=== PATIENT | female | born 1955 | race Caucasian/White ===

== ENCOUNTER 2023-12-24 22:39 | Inpatient (IN) | payer MEDICARE, OTHER, SELFPAY ==
[2023-12-24 15:13] VITALS: BP 176/88
[2023-12-24 15:32] LABS: % Basophils 0.5 % (0-2); % Eosinophils 2.4 % (0-6); % Immature Granulocytes 0.2 % (0-0.5); % Lymphocytes 31.6 % (20.5-51.1); % Monocytes 9.3 % (1.7-9.3); Absolute Eosinophils 0.2 10^3/uL (0-0.7); Absolute Lymphocytes 1.9 10^3/uL (1.2-3.4); Absolute Monocytes 0.6 10^3/uL (0.1-0.6); Absolute Neutrophils 3.4 10^3/uL (1.4-6.5); Hematocrit 38.8 % (37.0-47.0); Hemoglobin 13.9 g/dL (12.0-16.0); Mean Corp Hgb Conc. 35.8 g/dL (33.0-37.0); Mean Corpuscular Volume 83.8 fL (81.0-99.0); Nucleated Red Blood Cells % 0 %; Platelet Count 167 10^3/uL (130-400); Red Blood Cell Count 4.63 10^6/uL (4.20-5.40); Red Cell Dist. Width 12.1 % (11.5-14.5); White Blood Cell Count 6.1 10^3/uL (4.8-10.8)
[2023-12-24 15:40] VITALS: BMI 28.5
[2023-12-24 15:42] VITALS: BP 172/82
[2023-12-24] MEDS: NSS 1000 IV (15:46)
[2023-12-24 15:54] LABS: Urine Albumin Negative (Neg - Trace); Urine Bilirubin Negative (Negative); Urine Character Clear (Clear); Urine Color Yellow; Urine Glucose 3+ (Negative); Urine Ketone 1+ (Negative); Urine Leukocyte Negative (Negative); Urine Nitrite Negative (Negative); Urine Occult Blood Negative (Negative); Urine Urobilinogen Negative (Neg - 1+)
[2023-12-24 15:57] LABS: ALT (SGPT) 34 U/L (0-35); AST (SGOT) 30 U/L (14-36); Albumin 4.4 g/dl (3.5-5.0); Alkaline Phosphatase 100 U/L (38-126); Blood Urea Nitrogen 18 mg/dl (7-17); Calcium 9.7 mg/dl (8.4-10.2); Carbon Dioxide 23 mmol/L (22-30); Chloride 100 mmol/L (98-107); Estimated Creatinine Clearance 63 ml/min; Glucose 439 mg/dl (70-99); Potassium 4.3 mmol/L (3.5-5.1); Sodium 134 mmol/L (135-145); Total Bilirubin 0.8 mg/dl (0.2-1.3); Total Protein 7.1 g/dl (6.3-8.2); eGFR > 60.00
[2023-12-24 16:00] VITALS: BP 175/85
[2023-12-24 16:03] LABS: B-Hydroxybutyrate 0.48 mmol/L (0.02-0.27)
[2023-12-24] MEDS: NOVOLIN R 5 UNITS IV ×2 (16:17→20:52)
--- NOTE | 2023-12-24 16:28 | ED.GENMED ---
History of Present Illness
General
Chief Complaint: Flank Pain
Source: patient
Exam Limitations: none
Time Seen by Provider: 12/24/23 15:30
Nursing documentation reviewed up to this point in time: agreed with
History of Present Illness
History of Present Illness:
68-year-old female with a past medical history of hypertension, hyperlipidemia, diabetes, asthma who presents to the emergency room for evaluation of left flank pain. Patient reports onset of symptoms about a month ago and they have been consistent
and she feels somewhat worsening. She says that pain somewhat better laying flat, no clear triggering factors noted. She denies any falls or trauma. She reports that initially she had associated constipation going as long as 10 days without a
bowel movement however over the past 3 days she has had diarrhea. She denies any urinary symptoms. She denies any fever or chills. She denies any abdominal pain although she said she did have some transient upper abdominal distention which has
resolved. Denies nausea or vomiting. She denies any focal weakness or numbness in her extremities. She denies any incontinence. Denies saddle anesthesia. Denies any other complaints. She reports prior surgical history of hysterectomy.
Notably, she was seen in urgent care prior to evaluation here and was found to be severely hyperglycemic with a blood glucose of over 400; she does have a known history of diabetes/prediabetes but it is only controlled with diet.
Past History
Past History
ED Past Medical History: HTN and NIDDM
ED Past Surgical History: Gynecological (Total hysterectomy December 2013)
Social History
Tobacco: Non-smoker
Alcohol: Other
Drug: None
Living: with family
Employment: Employed
Family History
Family History: Other (Noncontributory)
Review of Systems
Review of Systems
All Other Systems: ROS reviewed and negative except as documented in HPI and ROS
Constitutional: Denies fever or chills
EENT: Denies sore throat or runny nose
Respiratory: Denies trouble breathing
Cardiac: Denies chest pain
ABD/GI: Reports diarrhea and constipated; Denies abdominal pain, nausea or vomiting
: Reports flank pain; Denies dysuria, frequency or bleeding
Musculoskeletal: Denies neck pain or back pain
Neurological: Denies headache, weakness or numbness
Phy Exam
Physical Exam
Physical Exam:
General: Awake, alert, oriented x3; no acute distress
Head: Normocephalic, atraumatic
Eyes: Conjunctiva normal, sclera anicteric
Throat: Airway intact, handling secretions
Neck: Trachea midline, supple without meningismus
Lungs: Clear to auscultation bilaterally, no wheezing, rales, rhonchi
Heart: Regular rate and rhythm, no murmurs, gallops, or rubs
Abd: Soft, slightly distended, no focal tenderness to palpation and no peritoneal signs
Back: Mild tenderness in the left upper lumbar region in the paraspinal area but no midline thoracic or lumbar tenderness, no CVA tenderness
Neuro: Cranial nerves grossly intact, speech fluid, motor and sensory function intact in all extremities
Skin: no rash
Extremities: No edema in extremities, equal pulses in all extremities
Scores
Heart Failure Risk
Heart Failure Risk Score: Not Applicable
Heart Score for Chest Pain Patients
STEMI patient?: Not applicable
Withdrawal Assessment of Alcohol
Withdrawal Assessment Completed?: Not applicable
Course
Orders/Labs/Results
Orders:
Orders
12/24/23 15:27
B-Hydroxybutyrate Urgent
Complete Blood Count/With Diff Urgent
Comprehensive Metabolic Panel Urgent
Lipase Urgent
Comment: ADD ON
12/24/23 15:31
CT Abd/pelvis W Iv Cont Urgent
Comment:
Reason For Exam: left flank pain
12/24/23 15:32
0.9% Sodium Chloride 1000 ml [Nss] 1,000 ml IV BOLUS
12/24/23 15:48
Urinalysis Reflex To Culture Urgent
Date Specimen was Collected: 12/24/23
Time Specimen was Collected: 15:47
12/24/23 16:06
STOOL [C difficile Antigen & Toxins] Urgent
YOVANA Source: Feces/Stool
Specimen Description:
Stool Culture Urgent
YOVANA Source: Feces/Stool
Specimen Description:
12/24/23 16:07
Insulin Human Regular [Novolin R] 5 units IV NOW STA
12/24/23 16:37
Add On- LAB Urgent
Tests Added?: lipase
12/24/23 19:32
Ketorolac [Toradol] 15 mg .ROUTE .STK-MED ONE
Ketorolac [Toradol] 15 mg IV NOW STA
12/24/23 20:47
Insulin Human Regular [Novolin R] 5 units IV NOW STA
Abnormal Lab Results
12/24/23 12/24/23 12/24/23
15:27 15:48 16:56
MPV 11.0 H fL
(7.4-10.4)
Sodium 134 L mmol/L
(135-145)
BUN 18 H mg/dl
(7-17)
Glucose 439 H mg/dl
(70-99)
Urine Ketones 1+ A
(Negative)
Urine Glucose 3+ A
(Negative)
B-Hydroxybutyrate 0.48 H mmol/L
(0.02-0.27)
POC Glucose 341 H mg/dl
(70-99)
12/24/23 12/24/23 12/24/23
18:10 19:35 20:34
MPV
Sodium
BUN
Glucose
Urine Ketones
Urine Glucose
B-Hydroxybutyrate
POC Glucose 284 H mg/dl 384 H mg/dl 367 H mg/dl
(70-99) (70-99) ()
12/24/23
21:47
MPV
Sodium
BUN
Glucose
Urine Ketones
Urine Glucose
B-Hydroxybutyrate
POC Glucose 340 H mg/dl
()
12/24/23 15:27
12/24/23 15:27
Vital Signs
Initial and Last Documented VS:
Initial Vital Signs
Temp Pulse Resp BP Pulse Ox
36.9 C 87 18 176/88 97
12/24/23 15:13 12/24/23 15:13 12/24/23 15:13 12/24/23 15:13 12/24/23 15:13
Last Documented Vital Signs
Temp Pulse Resp BP Pulse Ox
36.9 C 82 19 189/87 97
12/24/23 15:13 12/24/23 20:45 12/24/23 20:45 12/24/23 17:00 12/24/23 20:45
MDM/Problems Addressed
Differential Diagnosis Includes:
Constipation, colitis, bowel obstruction, nephrolithiasis, pyelonephritis, pancreatitis, musculoskeletal pain
MDM/Problems Addressed:
68-year-old female presents for evaluation of left flank pain associate with constipation and now diarrhea over the past few days. No trauma and no clear positional component to her symptoms. She has no red flag symptoms for back pain. She is
hypertensive but has otherwise normal vitals. Physical exam as above. Accu-Chek greater than 400 at urgent care as well as here. Will check labs including a CBC and a CMP. Check urinalysis. Will check lipase. Will send for a CT abdomen pelvis.
Will provide some IV fluids. Reassess after the above.
Labs reviewed: CBC unremarkable, CMP shows hyperglycemia to 439 with no signs of DKA. Will provide some IV insulin for blood glucose control. Awaiting results of CT.
CT shows no acute pathology to account for symptoms. We did treat with Toradol and her pain is improved. Suspect it could be musculoskeletal pain or perhaps mild colitis with her recent diarrhea; there was not a marked stool burden suggest that
this is all from constipation. Unfortunately her blood sugars have been poorly controlled here; she was given 5 units of IV insulin and a liter of IV fluid with only some improvement but still greater than 300. Will provide additional IV insulin
and reassess.
Blood sugars still poorly controlled she has received 10 units of insulin total and her most recent blood glucose is 340. Although she is not in DKA her sugars are poorly controlled, she is not on any medications at present and says that she is
allergic to metformin. She will need sugar control and diabetes education and ultimately will need regimen insulin versus oral meds. I think she should be admitted for this issue�case discussed with hospitalist.
Chronic conditions affecting care:
Diabetes
Acute Exacerbation and/or Progression of Chronic Illness:
Acutely hypertensive with no signs or symptoms of hypertensive emergency�no indication for emergent antihypertensive treatment
Acute exacerbation of chronic diabetes with hyperglycemia to 439�treated with IV fluids and IV insulin
Acute Exacerbation and/or Progression of Chronic Illness: DM and HTN
*Radiology
Radiology exam reviewed: radiology read reviewed
*Pulse Oximetry
Patient hypoxic: no
*Critical Care Note
Total Time (30-74mins, 75-104mins- exclusive of procedures): Not Applicable
Data Reviewed
Review of Other/Old Records Reveals: Labs and Records
Source: patient and records
Patient Management
Discussion with other providers: Hospitalist (Discussed with hospitalist)
Escalation/DeEscalation of care consider admission/obs:
Admission indicated
ED Attending Note
-
Portions of this chart may have been created with voice recognition software.� Occasional wrong word or��sound alike� substitutions may have occurred due to the inherent limitations of voice recognition software.
Discharge Plan
Departure
Patient Disposition: Admit
Date of Disposition: 12/24/23
Time of Disposition: 22:27
Admit to doctor: Vick
Presentation/result/management discussed w/ accepting MD/DO: Hospitalist
Discharge Problem:
Acute hyperglycemia, Diabetes mellitus, Left flank pain
Prescriptions:
No Action
metformin 500 MG tablet
500 mg PO TID
Enalapril
1 tab PO DAILY
Patient Comments:
'I do not know the dose and also I don't think that I have been able to keep it down for atleast 10 days anyway since I have been sick.'
ciprofloxacin HCl 500 MG tablet
500 mg PO BID Qty: 6 0RF
ondansetron 4 MG tablet,disintegrating
4 mg PO TIDPRN PRN (Reason: nausea) Qty: 12 0RF
dicyclomine 20 MG tablet
20 mg PO Q8HPRN PRN (Reason: abdominal cramping) Qty: 15 0RF
meclizine 25 MG tablet
25 mg PO TIDPRN PRN (Reason: dizziness) Qty: 15 0RF
Referrals:
UNKNOWN - PT DOES,NOT KNOW [Family Provider] -
Interventions
Interventions:
*Risk Screen - Suicide Last Done: 12/24/23 15:13
*General Assessment Last Done: 12/24/23 15:13
*Neglect/Abuse Screening Last Done: 12/24/23 15:13
ED- Fall Risk Assessment Last Done: 12/24/23 19:04
*ED COVID-19 Vaccine History Last Done: 12/24/23 15:43
BA-Cligii-Paujwhdvds Assessment Last Done: 12/24/23 19:04
ED-Female Genitourinary Assessment Last Done: 12/24/23 15:43
Discharge Date and Time
Print Language: MICRONESIAN
[2023-12-24 16:57] LABS: Glucose - Point of Care 341 mg/dl (70-99)
[2023-12-24 17:00] VITALS: BP 189/87
[2023-12-24 18:06] LABS: Lipase 113 U/L (23-300)
[2023-12-24 18:12] LABS: Glucose - Point of Care 284 mg/dl (70-99)
[2023-12-24] MEDS: TORADOL 15 MG IV (19:35)
[2023-12-24 19:36] LABS: Glucose - Point of Care 384 mg/dl (70-99)
[2023-12-24 20:35] LABS: Glucose - Point of Care 367 mg/dl (70-99)
[2023-12-24 21:49] LABS: Glucose - Point of Care 340 mg/dl (70-99)
[2023-12-24 22:11] VITALS: BP 191/87
--- NOTE | 2023-12-24 22:47 | HPS.HSE ---
Family Physician
-
Family Physician: NOT KNOW UNKNOWN - PT DOES
Chief Complaint
-
H BG at [facility]
History of Present Illness
HPI
68F HX DMT2 , HX ADES to metformin, HKLD, HTN seen at ER for evaluation of Lt flank pain
Subacute Lt flank pain
- for last 4 weeks
- Improved with laying flat, but no clear precipitating factors
- Denied trauma and injury
Constipation for 10 days followed by diarrhea
- no abdominal pain'
- no nausea and vomiting
Seen in [facility] prior to evaluation here
- noted BG > over 400
- Known HX DMT2 Dxed 5 -6 yrs
- She was on Metformin but due to significant wt loss she was advised to stop and on diet control
Medical History
Past Medical History
Past Medical History: Reports HTN and NIDDM (predibetes vs DM)
Past Surgical History: Reports Gynocological (total hysterectomy December 2013 )
Social History
Tobacco: Non-smoker
Alcohol: Other
Living: With Family
Family History
Family History: Not pertinent
Allergies / Home Medications
Allergies reflects when Allergies were last updated in [facility].
Home Medications with original date entered in [facility]
Allergy/Medication List:
Allergies
Allergy/AdvReac Type Severity Reaction Status Date / Time
No Known Allergies Allergy Verified 03/27/18 13:50
Home Medications
No Meds [No Current Medications] 12/24/23
If medication reconciliation has not been performed, why?: Medication List N/A
Review of Systems
-
Constitutional: Reports No Symptoms
EENT: Reports No Symptoms
Respiratory: Reports No Symptoms
Cardiac: Reports No Symptoms
: Reports Other (Lt flank pain )
Musculoskeletal: Reports No Symptoms
Skin: Reports No Symptoms
Neurological: Reports No Symptoms
Endocrine: Reports See HPI
Hematologic/Lymphatic: Reports No Symptoms
Psych: Reports No Symptoms
Physical Exam
Vital Signs
Vital Signs
Temp Pulse Resp BP Pulse Ox
98.4 F 82 19 191/87 98
12/24/23 15:13 12/24/23 20:45 12/24/23 20:45 12/24/23 22:11 12/24/23 22:11
Physical Exam
General: Well Developed, Well Nourished and No Apparent Distress
HEENT: NormoCephalic, Moist mucous membranes and Atraumatic
Respiratory: Clear
Cardiac: S1/S2 and Regular Rhythm; No Murmur or Rub
GI: Soft, Non Tender, Non Distended, Normal Bowel Sounds and Other (Mild tenderness in the left upper lumbar region in the paraspinal area but no midline thoracic or lumbar tenderness, no CVA tenderness); No Organomegaly
Rectal: Deferred by Provider
Musculoskeletal: No Clubbing, No Cyanosis and No Edema
Skin: No Rash
Neuro: Nonfocal/grossly intact
Laboratory Results
-
12/24/23 15:27
12/24/23 15:27
Laboratory Results
Total Bilirubin 0.8 mg/dl (0.2-1.3) 12/24/23 15:27
AST 30 U/L (14-36) 12/24/23 15:27
ALT 34 U/L (0-35) 12/24/23 15:27
Alkaline Phosphatase 100 U/L (38-126) 12/24/23 15:27
Lipase Cancelled 12/24/23 16:35
Data Reviewed
-
CT Scan: Report Reviewed by me
Lab Data: Labs Reviewed by me
Impression/Plan
-
Reviewed VS: Afebrile BP 190/85 HR 80 RR 19 POx 97
Data
WCC 6.1
Na 134
K 4.3
Unremarkable Cr and e GFR
NAG 11
BG 439
BHB 0.48
[address] Abd/pelvis W Iv Cont
- There is no evidence of acute pathology
- Imaging from bowel pathology is limited by the lack of enteric contrast.
- If there is clinical concern for bowel pathology, the study could be repeated with enteric contrast and 4 hour delay
- Diverticuli are present in the colon with no CT evidence of diverticulitis
No prior hospitalist admission:
ASSESSMENT & PLAN
Pending Rx reconciliation
Uncontrolled Hyperglycemia: No evidence DKA or Hyperosmolar hyperglycemic crisis
HX DMT2 Dxed 5 -6 yrs: She was on Metformin but due to significant wt loss she was advised to stop
BMI 28
NAG acidosis
POS BHB suspect ketosis without diabetic crisis
- NEG UA
- check A1C
- IV NS 60 cc/H
- s/p Reg insulin 5 u x2
- Initiate 70/30 12U BID
- add ISS low
- Diabetic diet 1800 rosy
- Dietary consult
- DM PAYROLL PROCESSOR consult for insulin management
Systolic HTN
? HX uncontrol essential HTN
- start Lisinopril 5mg daily
- Add IV Hydralazine PRN
Subacute Lt flank pain suspect MSK origin
NEG CT evidence of acute pathology
- Tylenol PRN
HX constipation followed by diarrhea : Overflow diarrhea ?
- Observe BMs
DVT Px: LMWH
Code: Full code
IP MS
[2023-12-24 23:48] VITALS: BP 164/86; BMI 27.6
[2023-12-25] MEDS: NSS 1000 IV ×2 (00:16→16:43)
[2023-12-25] MEDS: APRESOLINE 5 MG IV ×2 (00:28→09:44)
[2023-12-25] MEDS: TYLENOL 650 MG PO ×5 (00:28→20:57)
--- NOTE | 2023-12-25 01:00 | PTCARENOTE ---
Pt received from ED via stretcher. Ambulated to bed independently without incident. Oriented to surroundings and plan of care discussed. Admission and assessment completed. Reports L flank pain as tolerable at present. BP elevated, pt reports
mild headache. PRN hydralazine administered per MD order (refer to AUG). OOB to BR, aware of order for stool studies, hat in place. #20 LAC w/NSS at 60 mL/hr. Call ramírez within reach, plan of care ongoing.
[2023-12-25 03:38] VITALS: BP 133/72
[2023-12-25 06:50] LABS: Hematocrit 36.6 % (37.0-47.0); Hemoglobin 13.2 g/dL (12.0-16.0); Mean Corp Hgb Conc. 36.1 g/dL (33.0-37.0); Mean Corpuscular Volume 83.2 fL (81.0-99.0); Platelet Count 150 10^3/uL (130-400); Red Cell Dist. Width 11.9 % (11.5-14.5); White Blood Cell Count 5.7 10^3/uL (4.8-10.8)
[2023-12-25 07:15] LABS: Blood Urea Nitrogen 19 mg/dl (7-17); Calcium 9.4 mg/dl (8.4-10.2); Carbon Dioxide 21 mmol/L (22-30); Chloride 106 mmol/L (98-107); Estimated Creatinine Clearance 94 ml/min; Glucose 292 mg/dl (70-99); Potassium 4.3 mmol/L (3.5-5.1); Sodium 137 mmol/L (135-145); eGFR > 60.00
[2023-12-25 08:00] VITALS: BP 173/90
[2023-12-25 08:02] LABS: Glucose - Point of Care 294 mg/dl (70-99)
[2023-12-25] MEDS: HEPARIN 5000 UNITS SC ×2 (08:03→20:44)
[2023-12-25] MEDS: ZESTRIL 5 MG PO (08:03)
[2023-12-25] MEDS: MIRALAX 17 GRAMS PO (08:03)
[2023-12-25] MEDS: NOVOLOG FLEXPEN-LOW RESISTANCE 3 UNITS SC (08:04)
[2023-12-25] MEDS: NOVOLOG MIX 70/30 FLEXPEN 12 UNITS SC ×2 (09:19→16:43)
--- NOTE | 2023-12-25 10:47 | CM ---
CM met with pt at bedside.
Pt resides in a 2SH, bedroom and bathroom on 2nd floor. [address] home.
Prior to admission pt is independent with ambulation using no AD and ind with ADL's. Denies DME. Does not own a glucometer.
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
Pt does not have a PCP. Uses urgent care. CM to supply PCP resource list.
Pharmacy is [facility] or [place] [id number].
CM to follow and assist with dcp needs. Anticipate possible DME needs (glucometer). Pt has no PCP which will be a barrier for homecare follow up.
--- NOTE | 2023-12-25 11:01 | W.PN.HOSP.TC ---
Addendum entered and electronically signed by Nate Lisa MD 12/25/23 16:22:
Headache appears to be improving. monitor
Addendum entered and electronically signed by Nate Lisa MD 12/25/23 16:17:
CT with possibility of Old CVA. Patient does have risk factors HTN,DM and has been non compliant. Will order MRI. and start ASA for now.
Original Note:
Today's Communication/Plan
-
Monitor vital signs see plan
Will need outpatient primary care provider
Diabetes education, nurse practitioner
Continue lisinopril, uptitrate as necessary
Continue insulin
A1c pending
Assessment / Plan
Assessment / Plan
Uncontrolled Hyperglycemia likely secondary to uncontrolled diabetes mellitus
HX DMT2 Dxed 5 -6 yrs: She was on Metformin but due to significant wt loss she was advised to stop. Per patient currently she is not following up with any primary care provider and does see physician at urgent care when she gets sick
BMI 28
Non-anion gap metabolic acidosis
POS BHB suspect ketosis
- NEG UA
- A1C pending
- IV NS 60 cc/H
- s/p Reg insulin 5 u x2
- Initiate 70/30 12U BID
- add ISS low
- Diabetic diet 1800 rosy
- Dietary consult
- DM SUPERVISOR [employer]ACUUM METALIZING consult for insulin management
Essential hypertension
Denies any history however did not see primary care provider
Start lisinopril, uptitrate as necessary
- Add IV Hydralazine PRN
Subacute Lt flank pain suspect MSK origin
Has been having periods of diarrhea which is now improving
NEG CT evidence of acute pathology
- Tylenol PRN
HX constipation followed by diarrhea
- Observe BMs
DVT Px: LMWH
Code: Full code
General: Well Developed, Well Nourished and No Apparent Distress
HEENT: NormoCephalic, Moist mucous membranes and Atraumatic
Respiratory: Clear
Cardiac: S1/S2 and Regular Rhythm; No Murmur or Rub
GI: Soft, Non Tender, Non Distended, Normal Bowel Sounds
Musculoskeletal: No Edema
Neuro: Nonfocal/grossly intact
Anticipated Discharge: 24 - 48 hours
Subjective/Interval History
-
Date of Service: December 25, 2023
denies nausea
Objective Data
-
Labs:
Laboratory Results
12/25/23
06:38
WBC 5.7
Hgb 13.2
Hct 36.6 L
Plt Count 150
Sodium 137
Potassium 4.3
Chloride 106
Carbon Dioxide 21 L
BUN 19 H
Creatinine 0.6
Glucose 292 H
Calcium 9.4
Vital Signs:
Vital Signs
Temp Pulse Resp BP Pulse Ox
98.1 F 84 18 172/93 96
12/25/23 03:38 12/25/23 09:44 12/25/23 03:38 12/25/23 09:44 12/25/23 03:38
[2023-12-25 11:39] LABS: Glucose - Point of Care 354 mg/dl (70-99)
[2023-12-25 12:00] VITALS: BP 137/66
[2023-12-25] MEDS: NOVOLOG FLEXPEN-LOW RESISTANCE 5 UNITS SC (12:12)
[2023-12-25] MEDS: PROTONIX 40 MG PO (13:54)
[2023-12-25 16:34] LABS: Glucose - Point of Care 133 mg/dl (70-99)
[2023-12-25] MEDS: LOW STRENGTH ASPIRIN 81 MG PO (16:34)
[2023-12-25] MEDS: NOVOLOG FLEXPEN-LOW RESISTANCE SC (16:35)
--- NOTE | 2023-12-25 18:08 | PTCARENOTE ---
pt complaining of GIL 3/10 with some pressure in her eyes and face, vitals stable and charted, MD made aware and head CT ordered; denies dizziness, blurry vision. Plan of care on going.
[2023-12-25 21:14] VITALS: BP 164/86
[2023-12-25 21:33] LABS: Glucose - Point of Care 174 mg/dl (70-99)
[2023-12-25 21:40] VITALS: BP 148/78
[2023-12-25 22:43] VITALS: BP 156/80
[2023-12-26 05:58] LABS: Hematocrit 36.2 % (37.0-47.0); Hemoglobin 12.9 g/dL (12.0-16.0); Mean Corp Hgb Conc. 35.6 g/dL (33.0-37.0); Mean Corpuscular Hgb 30.1 pg (27.0-31.0); Mean Corpuscular Volume 84.4 fL (81.0-99.0); Mean Platelet Volume 10.8 fL (7.4-10.4); Platelet Count 157 10^3/uL (130-400); Red Blood Cell Count 4.29 10^6/uL (4.20-5.40); Red Cell Dist. Width 12.3 % (11.5-14.5); White Blood Cell Count 5.4 10^3/uL (4.8-10.8)
[2023-12-26 06:00] VITALS: BMI 27.8
[2023-12-26] MEDS: TYLENOL 650 MG PO ×2 (06:16→09:40)
[2023-12-26 06:28] LABS: Blood Urea Nitrogen 16 mg/dl (7-17); Calcium 9.2 mg/dl (8.4-10.2); Carbon Dioxide 21 mmol/L (22-30); Chloride 110 mmol/L (98-107); Estimated Creatinine Clearance 94 ml/min; Glucose 214 mg/dl (70-99); Potassium 3.8 mmol/L (3.5-5.1); Sodium 137 mmol/L (135-145); eGFR > 60.00
[2023-12-26 07:35] VITALS: BP 170/90
[2023-12-26 07:48] LABS: Glucose - Point of Care 242 mg/dl (70-99)
--- NOTE | 2023-12-26 08:26 | PN.DE.MGMTRT ---
Insulin Management
- -
12/26/2023: Diabetes Management Consult
68 year old female who presented to the ER for Left flank pain, noted for Hyperglycemia with a venous glucose of 439 on admission. PMH: HTN, hx of CVA and T2DM for 5-6 years, states she was once on Metformin for sometime but it was discontinued due
to significant weight loss.
She reports recent sx of increased thirst, urination, fatigue, vision changes and loss of sensation in both feet.
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
She states that she is very comfortable with glucose monitoring and has declined instructions for Glucose meter use but has requested a meter for home use- Contour Next has been provided. A1C 13.1%, Cr 0.6, eGFR >60 on admission. Discussed current
A1C and average blood sugar of 350 with pt.
Pt is awake, A/O x3, sitting up in bed, able to discuss diabetes mgt.
She was started on 70/30 12 units BID and low corrective insulin with meals by admitting team.
Fasting glucose has been >200, for 2 consecutive mornings. 12/24 premeal glucose was 133 to 354.
Explained to pt that her blood sugar is still elevated and that she will require insulin at discharge.
Discussed with pt different options for mgt, pt agreeable to basal bolus insulin
Will give 1 time dose of Lantus 10 units NOW and start HS Lantus 12 units and AC NovoLog 8 units, 1st dose NOW. STOP 70/30 insulin.
Start Metformin 500mg BID. Cont low corrective insulin with meals
Insulin instructions provided and extra needles provided to Pt's Nurse to reinforce education for self administration of insulin.
Rx for test strips, lancets, and pen needles added to amb orders.
Diabetes History
- -
Type of Diabetes: 2 requiring insulin
Pre-Admission Diabetes Regimen
12/26/23
05:35
Creatinine 0.6
Insulin Pump Settings
IP Diabetes Regimen
12/25/23 12/25/23 12/25/23
11:37 16:33 21:31
Glucose
POC Glucose 354 H 133 H 174 H
12/26/23 12/26/23
05:35 07:47
Glucose 214 H
POC Glucose 242 H
Meal type: Dinner
Meal type: Breakfast
Amount consumed: 100%
Amount consumed: 100%
Patient Education
[2023-12-26 09:05] LABS: Glycohemoglobin (HgbA1c) 13.1 % (4.0-5.6)
[2023-12-26] MEDS: HEPARIN 5000 UNITS SC ×2 (09:41→20:40)
[2023-12-26] MEDS: APRESOLINE 5 MG IV (09:41)
[2023-12-26] MEDS: PROTONIX 40 MG PO (09:41)
[2023-12-26] MEDS: LOW STRENGTH ASPIRIN 81 MG PO (09:41)
[2023-12-26] MEDS: ZESTRIL 5 MG PO ×2 (09:41→13:12)
[2023-12-26] MEDS: NOVOLOG MIX 70/30 FLEXPEN SC (09:42)
[2023-12-26] MEDS: NOVOLOG FLEXPEN-LOW RESISTANCE 2 UNITS SC (09:43)
[2023-12-26] MEDS: NOVOLOG FLEXPEN 8 UNITS SC ×3 (09:43→16:35)
--- NOTE | 2023-12-26 10:08 | W.PN.HOSP.TC ---
Addendum entered and electronically signed by Gregory Smith DO 12/26/23 21:07:
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
Neurology & neurosurgery consulted.
Original Note:
Today's Communication/Plan
-
Bowel regimen
IV Toradol
Brain MRI
Diabetes education consult
Assessment / Plan
Assessment / Plan
Gen-AAOx3, NAD
HEENT-NC, AT, anicteric, clear oral mm
Neck-supple
CV-reg, no M, +S1/S2
Lungs-clear B/L
Abd-soft, NT, ND
Ext-no edema
Musculoskeletal-no cyanosis, clubbing
Skin-warm and dry
Neuro-grossly non-focal
Psych-calm, cooperative
Left flank pain/abdominal pain -possibly related to chronic constipation. Last bowel movement was Tuesday. Bowel regimen ordered. Recommend high-fiber diet. Last colonoscopy was March 2014, noted external hemorrhoids, cecal polyp.
Recommendation for was for repeat colonoscopy in 2 years, appears that she did not follow-up.
CT of abdomen pelvis with IV contrast without acute pathology.
DM2 with hyperglycemia -hemoglobin A1c 13.1%. Normal anion gap acidosis. Diabetes HEALTH FACILITIES SURVEYOR consulted. Anticipate discharge on insulin. Was not on diabetes meds prior to admission. Does not have a primary care doctor. She goes to urgent care for her
needs. Encouraged her to start seeing a primary care doctor.
Essential hypertension -not on treatment at home. Lisinopril started. Can increase dose to 10 mg.
Incidental stroke -noted on CT head. Right frontal lobe, 2 cm lesion. Appears to be an old infarct. Brain MRI ordered.
DVT Px: LMWH
Code: Full code
Anticipated Discharge: Within 24 hours
Subjective/Interval History
-
Date of Service: December 26, 2023
Patient seen and examined. Complaining of headache, left flank pain, abdominal pain.
Objective Data
-
Labs:
Laboratory Results
12/25/23 12/26/23
06:38 05:35
WBC 5.7 5.4
Hgb 13.2 12.9
Hct 36.6 L 36.2 L
Plt Count 150 157
Sodium 137
Potassium 3.8
Chloride 110 H
Carbon Dioxide 21 L
BUN 16
Creatinine 0.6
Glucose 214 H
Calcium 9.2
Vital Signs:
Vital Signs
Temp Pulse Resp BP Pulse Ox
97.9 F 90 18 170/90 98
12/26/23 07:35 12/26/23 09:41 12/26/23 07:35 12/26/23 09:41 12/26/23 07:35
I&O
12/25/23 12/26/23 12/27/23
06:59 06:59 06:59
Intake Total 2059
Balance 2059
Review of Systems
-
History Source: Patient
All other systems: Reviewed and negative
[2023-12-26] MEDS: LANTUS 0.1 UNITS SC (10:56)
[2023-12-26] MEDS: MIRALAX 17 GRAMS PO (10:56)
[2023-12-26] MEDS: DULCOLAX 10 MG RECTAL (10:56)
[2023-12-26 12:10] VITALS: BP 157/77
--- NOTE | 2023-12-26 13:00 | PN.DE ---
Diabetes Education
- -
Met with Ms. Kurtz for insulin instructions, A1C 13.1%. Pt was offered meter instructions and she declined stating that she has experience with monitor use but requested for a monitor and it was provided. .
Pt was made aware of significance of high A1C in relation to uncontrolled diabetes and care home diabetes related complications.
Discussed action of both rapid acting and long acting insulins as well as symptoms and treatment of hypoglycemia. Aware for meals to check blood glucose, inject NovoLog (short acting insulin) in stomach and eat in 10-20 minutes and Long acting
insulin in outer thigh, rotating sites. Aware to store insulin pens that are not in use in the refrigerator. Instructions with good return demonstration using the insulin pen was noted. Discussed importance of checking blood sugars 4x/day to assess
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 Provided information and handout on outpt education classes.
Pt will need RX at discharge for basal insulins as well as insulin pen needles Rx for Lancets and test strips was added to amb orders.
[2023-12-26 13:17] LABS: Glucose - Point of Care 334 mg/dl (70-99)
[2023-12-26] MEDS: NOVOLOG FLEXPEN-LOW RESISTANCE 4 UNITS SC (13:21)
[2023-12-26] MEDS: TORADOL 30 MG IV (13:25)
[2023-12-26 15:15] VITALS: BP 137/75
[2023-12-26 16:03] LABS: Glucose - Point of Care 188 mg/dl (70-99)
--- NOTE | 2023-12-26 16:08 | CM ---
Reviewed the chart notes. Patient does not have a PCP for [facility] home[facility]. Patient provided with area PCPs. Received glucometer form outreach educator. CM continues to be available to patient/family and is monitoring medical plan for needs at
discharge.
Plan: Discharge to home when medically stable.
[2023-12-26] MEDS: GLUCOPHAGE 500 MG PO (16:33)
[2023-12-26] MEDS: NOVOLOG FLEXPEN-LOW RESISTANCE 1 UNITS SC (16:34)
[2023-12-26 18:34] LABS: Hepatitis C Antibody Negative (Negative)
[2023-12-26 21:32] LABS: Glucose - Point of Care 145 mg/dl (70-99)
[2023-12-26] MEDS: LANTUS 0.12 UNITS SC (21:33)
[2023-12-26] MEDS: SENOKOT-S 2 TABLET PO (21:34)
[2023-12-26 23:10] VITALS: BP 156/86
[2023-12-27 06:00] VITALS: BMI 27.8
[2023-12-27 07:19] VITALS: BP 142/76
--- NOTE | 2023-12-27 07:27 | PN.DE.MGMTRT ---
Insulin Management
- -
12/27/2023: Diabetes Management Consult Follow up
Patient admitted for Left flank pain, noted for Hyperglycemia with a venous glucose of 439 on admission. PMH: HTN, hx of CVA and T2DM for 5-6 years, states she was once on Metformin for sometime but it was discontinued due to significant weight
loss.
She reports recent sx of increased thirst, urination, fatigue, vision changes and loss of sensation in both feet.
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
She states that she is very comfortable with glucose monitoring and has declined instructions for Glucose meter use but has requested a meter for home use- Contour Next has been provided. A1C 13.1%, Cr 0.6, eGFR >60 on admission. Discussed current
A1C and average blood sugar of 350 with pt.
Pt is awake, A/O x3, sitting up in bed, able to discuss diabetes mgt.
She was started on 70/30 12 units BID and low corrective insulin with meals by admitting team. 12/24 70/30 stopped, lantus 12 units @ hs started with Metformin 500mg BID. Cont low corrective insulin with meals. Glucose improved form 300's to 145
@HS.
Fasting glucose this AM 237, Will increase to lantus to 15 units @ HS continue novolog 8 units AC with corrective insulin.
Insulin instructions provided and extra needles provided to Pt's Nurse to reinforce education for self administration of insulin yesterday.
Rx for test strips, lancets, and pen needles added to amb orders.
Diabetes History
- -
Type of Diabetes: 2 requiring insulin
Pre-Admission Diabetes Regimen
Lab Results
Hemoglobin A1c 13.1 % (4.0-5.6) H 12/25/23 06:38
Insulin Pump Settings
IP Diabetes Regimen
12/26/23 12/26/23 12/26/23
07:47 13:15 16:01
POC Glucose 242 H 334 H 188 H
12/26/23
21:30
POC Glucose 145 H
Meal type: Lunch
Meal type: Breakfast
Amount consumed: 100%
Amount consumed: 100%
Patient Education
[2023-12-27 07:46] LABS: Glucose - Point of Care 237 mg/dl (70-99)
--- NOTE | 2023-12-27 08:58 | CON.NEURO4 ---
Documented by User: Racheal Kidd NP 12/27/23 12:10
Consultation - Neurology 4
-
CONSULTING PHYSICIAN: Zaid Monteiro MD
REFERRING PHYSICIAN: Hospitalists/Dr. Smith
DICTATED BY: VICTORIANO Joseph
DATE/TIME OF REQUEST: 12/26/23
DATE/TIME OF CONSULTATION: 12/27/23
Reason for Consultation: Abnormal CT head finding
History of Present Illness:
This is a 68-year-old left-handed female who has presented to the hospital on 12/24/23 with report of left flank pain starting 4 weeks ago and constipation x10 days followed by diarrhea. CT abd/pelvis was unremarkable. Patient's blood pressure was
elevated at 176/88 and her blood glucose was 439. Patient reports being diagnosed with NIDDM at age 38 but she lost a significant amount of weight and did not require treatment for several decades. In 2019 it appears she was on DM medications again,
but she reports an improvement and these were stopped again. She does not check her blood sugar at home. She does not recently having bilateral blurry vision, increased thirst, and urinary frequency. She denies ever being on any antihypertensive
medications.
Patient reports developing a headache after admission lasting two days. She describes this as a throbbing sensation behind both eyes, up the back of her neck, and on the top of her head. She rated it an 8/10. Currently her headache is a 2/10.
Initially she had some photophobia but that has now resolved. She denies any phonophobia, nausea, or vomiting. She denies any history of headaches or migraines in the past. CT Head was obtained on 12/25/23 and was suggestive of a right frontal lobe
lesion, prompting MRI brain imaging. MRI brain noncontrast imaging is suggestive of a chronic hemorrhagic infarct vs vascular malformation with associated encephalomalacia, in addition to a complex Rathke's cleft cyst vs hemorrhagic microadenoma.
Patient denies any history of stroke or stroke symptoms in the past. She is not taking any blood-thinning medications. She does report a history of head trauma x2. She fell off of a horse somewhere around 2019 and hit her head. She was wearing a
helmet, which cracked. She denies losing consciousness with that event. Then in 2019, she slipped on ice and fell and hit the back of her head. She reports losing consciousness for at least a few hours with that fall. She denies any dizziness,
diplopia, vision loss, speech/swallow difficulty, focal numbness, weakness, chest pain, palpitations, and shortness of breath. She does note tingling in bilateral feet and fingers.
Past Medical History: HTN, HLD, NIDDM, uterine tumor around kidney, vertigo, head trauma x2
Surgical History: ROHAN/BSO due to uterine mass, benign breast lump removed
Family History: Father- Parkinson disease, CVA age 56.
Social History: Former tobacco. Rare alcohol. Denies illicit drug use.
Allergies: No known allergies.
Home Medications: See below.
Review of Symptoms:
Patient denies any fever, chest pain, shortness of breath, GI or symptoms.
�Per the HPI.�All systems are reviewed negative except above.
Physical Exam:
The patient is afebrile, abdomen is nondistended, breathing is unlabored, skin is warm and dry, no edema.
NIH Stroke Scale:
I performed the NIH stroke scale on the patient on 12/27/23 at 1000. The patient scored 0 points on the NIH stroke scale assessment.
Neurologic Examination:
The patient is awake, alert and oriented x 3. She is able to follow commands and answer questions appropriately. There is no aphasia or dysarthria. On cranial nerve assessment, pupils are 3 mm bilateral, round and reactive to light and
accommodation. Visual yin are full. Extraocular movements are intact. Facial sensations are intact and bilaterally symmetrical, there is no facial asymmetry. Hearing is intact bilaterally to normal conversation volume. Tongue palate and uvula are
midline. Sternocleidomastoid strengths are full bilaterally. Motor strengths are 5/5 bilateral upper and lower extremities on medical research [place] scale. There is no drift or involuntary movement noted. Deep tendon reflexes are 1+ bilateral
upper and lower extremities and Babinski is absent bilaterally. Sensations of temperature and vibration are mildly reduced in distal bilateral lower extremities bilaterally. There was no extinction noted on double simultaneous stimulation.
Coordination is intact by finger to nose bilaterally.
Lab Results: See below.
Neuro Imaging:
1. CT Head 12/25/23: There is a 2 cm focal low-density lesion in the subcortical white matter of the right frontal lobe, increased in size when compared with prior study and associated with overlying volume loss. This most likely is old infarct.
2. 1.7 cm region of cortical gasca matter and subcortical white matter signal abnormality in the posterior right frontal lobe with a small curvilinear extra-axial signal abnormality in the overlying sulcus. Diagnostic possibilities are (1) a chronic
hemorrhagic infarct or (2) a slow flow vascular malformation with associated encephalomalacia. Mild diffuse cerebral and cerebellar volume loss. 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 Mild paranasal sinus
mucosal disease. Moderate-sized central disc herniation at C5/C6 causing mild spinal cord compression and central canal stenosis.
Differentials for the patient's presentation include:
1. Right frontal lobe abnormality possibly an old small hemorrhage r/t head trauma. Cannot exclude venous abnormality or small hemorrhagic stroke due to hypertension/vascular risk factors. Patient asymptomatic.
2. 5mm hemorrhagic microadenoma vs Rathke's cleft cyst in the sella turcica.
3. Uncontrolled DM.
4. Hypertension.
Patient has the following risk factors for their symptoms: Hx head trauma x2, HTN, HLD, NIDDM
Recommendations:
-Repeat MRI brain with contrast pending for further visualization of abnormality.
-Goal normotension.
-Goal normoglycemia, hbA1c is 13.1.
-Will check LDL.
-Neurosurgery consulted.
-DVT prophylaxis.
Discussed patient care with: Dr. Monteiro, the patient
Vital Signs and Labs
-
Vital Signs and Labs:
Vital Signs
Temp Pulse Resp BP Pulse Ox
97.9 F 86 20 142/76 98
12/27/23 07:19 12/27/23 10:44 12/27/23 07:19 12/27/23 10:44 12/27/23 07:19
Lab Results
12/26/23 05:35
12/26/23 05:35
Sodium 137 mmol/L (135-145) 12/26/23 05:35
Potassium 3.8 mmol/L (3.5-5.1) 12/26/23 05:35
BUN 16 mg/dl (7-17) 12/26/23 05:35
Glucose 214 mg/dl (70-99) H 12/26/23 05:35
Calcium 9.2 mg/dl (8.4-10.2) 12/26/23 05:35
Medications
-
Active Medications
Generic Name Dose Route Start Last Admin
Trade Name Freq PRN Reason Stop Dose Admin
Acetaminophen 650 mg 12/24/23 23:36 12/27/23 10:43
Acetaminophen 325 Mg Tablet PO 01/21/24 23:35 650 mg
Q4HPRN PRN Administration
mild pain/GIL/temp> 100.4F
Aspirin 81 mg 12/25/23 17:00 12/27/23 10:43
Aspirin 81 Mg Chewable Tablet PO 01/22/24 16:59 81 mg
DAILY RIGOBERTO Administration
Bisacodyl 10 mg 12/24/23 23:36
Bisacodyl 10 Mg Rectal Suppository RECTAL 01/21/24 23:35
[id number] PRN
constipation
Dextrose 12.5 grams 12/24/23 23:36
Dextrose 50% (0.5 Grams/Ml) 50 Ml Syringe IV 01/21/24 23:35
[id number] PRN
hypoglycemia
Protocol
Glucagon 1 mg 12/24/23 23:36
Glucagon 1 Mg Vial IM 01/21/24 23:35
PRN PRN
hypoglycemia
Protocol
Heparin Sodium 5,000 units 12/25/23 08:00 12/27/23 10:47
Heparin 5,000 Units/Ml 1 Ml Vial SC 01/22/24 07:59 5,000 units
Q12 RIGOBERTO Administration
Hydralazine HCl 5 mg 12/24/23 23:36 12/26/23 09:41
Hydralazine 20 Mg/Ml Vial IV 01/21/24 23:35 5 mg
Q6HPRN PRN Administration
hyperetnsion
Insulin Glargine 15 units/ 0.15 mls @ 0 mls/hr 12/27/23 22:00
Device SC 01/24/24 21:59
HS RIGOBERTO
As Directed
Insulin Aspart 0 units 12/25/23 07:30 12/27/23 10:45
Insulin Aspart Low Resistance 300 Units/3 Ml Pen.Injctr SC 01/22/24 07:29 2 units
AC RIGOBERTO Administration
Protocol
Insulin Aspart 8 units 12/26/23 16:30 12/27/23 10:46
Insulin Aspart (100 Units/Ml) 3 Ml Flexpen SC 01/23/24 16:29 8 units
AC RIGOBERTO Administration
Lisinopril 10 mg 12/27/23 08:00 12/27/23 10:44
Lisinopril 10 Mg Tablet PO 01/24/24 07:59 10 mg
DAILY RIGOBERTO Administration
Metformin HCl 500 mg 12/26/23 17:00 12/27/23 10:43
Metformin 500 Mg Regular Release Tablet PO 01/23/24 16:59 500 mg
BID@0800,1700 RIGOBERTO Administration
Mineral Oil 133 ml 12/27/23 09:30
Mineral Oil (Fleet) Enema 133 Ml (4.5 Oz) RECTAL 01/24/24 09:29
DAILYPRN PRN
constipation
Pantoprazole Sodium 40 mg 12/25/23 12:00 12/27/23 10:43
Pantoprazole 40 Mg Delayed Release Tablet PO 01/22/24 11:59 40 mg
DAILY RIGOBERTO Administration
Polyethylene Glycol 17 grams 12/26/23 10:10 12/27/23 10:57
Polyethylene Glycol Powder 17 Grams Packet PO 01/23/24 10:09 Not Given
DAILY RIGOBERTO
Senna/Docusate Sodium 2 tablet 12/26/23 21:05 12/27/23 10:59
Docusate W/Senna (Elizabeth-Colace) Tablet PO 01/23/24 21:04 Not Given
BID RIGOBERTO
Sodium Chloride 0 flush 12/24/23 23:00
Sodium Chloride 0.9% (Flush) Syringe IV 01/21/24 22:59
PER PROTOCOL RIGOBERTO
Sodium Chloride 2 sprays 12/25/23 16:43
Sodium Chloride 0.65% Nasal [place] 45 Ml Bottle NASAL 01/22/24 16:42
QIDPRN PRN
dry nose
Home Medications
�Medication �Instructions �Recorded
blood sugar diagnostic (Contour #130 ea 12/26/23
Next Test Strips)
blood sugar diagnostic (Contour #130 ea 12/26/23
Next Test Strips)
metformin 500 mg tablet 500 mg PO BID@0800,1700 Diabetes 12/26/23
#60 tabs
pen needle, diabetic 32 gauge x #200 ea 12/26/23
' (BD Ultra-Fine Sadie Pen
Needle)

Documented by User: Zaid Monteiro MD 01/01/24 21:26
Consultation - Neurology 4
-
CONSULTING PHYSICIAN: Zaid Monteiro MD
REFERRING PHYSICIAN: Hospitalists/Dr. Smith
DICTATED BY: VICTORIANO Joseph
DATE/TIME OF REQUEST: 12/26/23
DATE/TIME OF CONSULTATION: 12/27/23
Reason for Consultation: Abnormal CT head finding
History of Present Illness:
This is a 68-year-old left-handed female who has presented to the hospital on 12/24/23 with report of left flank pain starting 4 weeks ago and constipation x 10 days followed by diarrhea. CT abd/pelvis was unremarkable. Patient's blood pressure was
elevated at 176/88 and her blood glucose was 439. Patient reports being diagnosed with NIDDM at age 38 but she lost a significant amount of weight and did not require treatment for several decades. In 2019 it appears she was on DM medications again,
but she reports an improvement and these were stopped again. She does not check her blood sugar at home. She does not recently having bilateral blurry vision, increased thirst, and urinary frequency. She denies ever being on any antihypertensive
medications.
Patient reports developing a headache after admission lasting two days. She describes this as a throbbing sensation behind both eyes, up the back of her neck, and on the top of her head. She rated it an 8/10. Currently her headache is a 2/10.
Initially she had some photophobia but that has now resolved. She denies any phonophobia, nausea, or vomiting. She denies any history of headaches or migraines in the past.
CT Head was obtained on 12/25/23 and was suggestive of a right frontal lobe lesion. MRI brain noncontrast imaging is suggestive of a chronic hemorrhagic infarct vs vascular malformation with associated encephalomalacia(R), in addition to a complex
Rathke's cleft cyst vs hemorrhagic microadenoma. Patient denies any history of stroke or stroke symptoms in the past. She is not taking any blood-thinning medications. She does report a history of head trauma x2. She fell off of a horse somewhere
around 2018 and hit her head. She was wearing a helmet, which cracked on impact. She denies losing consciousness. Then in 2019, she slipped on ice and fell and hit the back of her head. She reports losing consciousness for at least a few hours after
that fall. No post concussive syndrome.
She denies any dizziness, diplopia, vision loss, speech/swallow difficulty, focal numbness, weakness, chest pain, palpitations, and shortness of breath. She does note tingling in bilateral feet and fingers.
Past Medical History: HTN, HLD, NIDDM, uterine tumor around kidney, vertigo, head trauma x2
Surgical History: ROHAN/BSO due to uterine mass, benign breast lump removed
Family History: Father- Parkinson disease, CVA age 56.
Social History: Former tobacco. Rare alcohol. Denies illicit drug use.
Allergies: No known allergies.
Home Medications: See below.
Review of Symptoms:
Patient denies any fever, chest pain, shortness of breath, GI or symptoms.
�Per the HPI.�All systems are reviewed negative except above.
Physical Exam:
The patient is afebrile, abdomen is nondistended, breathing is unlabored, skin is warm and dry, no edema.
NIH Stroke Scale:
I performed the NIH stroke scale on the patient on 12/27/23 at 1000. The patient scored 0 points on the NIH stroke scale assessment.
Neurologic Examination:
The patient is awake, alert and oriented x 3. She is able to follow commands and answer questions appropriately. There is no aphasia or dysarthria. On cranial nerve assessment, pupils are 3 mm bilateral, round and reactive to light and
accommodation. Visual yin are full. Extraocular movements are intact. Facial sensations are intact and bilaterally symmetrical, there is no facial asymmetry. Hearing is intact bilaterally to normal conversation volume. Tongue palate and uvula are
midline. Sternocleidomastoid strengths are full bilaterally. Motor strengths are 5/5 bilateral upper and lower extremities on medical research [place] scale. There is no drift or involuntary movement noted. Deep tendon reflexes are 1+ bilateral
upper and lower extremities and Babinski is absent bilaterally. Sensations of temperature and vibration are mildly reduced in distal bilateral lower extremities bilaterally. There was no extinction noted on double simultaneous stimulation.
Coordination is intact by finger to nose bilaterally.
Lab Results: See below.
Neuro Imaging:
1. CT Head 12/25/23: There is a 2 cm focal low-density lesion in the subcortical white matter of the right frontal lobe, increased in size when compared with prior study and associated with overlying volume loss. This most likely is old infarct.
2. 1.7 cm region of cortical gasca matter and subcortical white matter signal abnormality in the posterior right frontal lobe with a small curvilinear extra-axial signal abnormality in the overlying sulcus. Diagnostic possibilities are (1) a chronic
hemorrhagic infarct or (2) a slow flow vascular malformation with associated encephalomalacia. Mild diffuse cerebral and cerebellar volume loss. 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 Mild paranasal sinus
mucosal disease. Moderate-sized central disc herniation at C5/C6 causing mild spinal cord compression and central canal stenosis.
Differentials for the patient's presentation include:
1. Right frontal lobe abnormality possibly an old small hemorrhage r/t head trauma. Cannot exclude venous abnormality or small hemorrhagic stroke due to hypertension/vascular risk factors. Patient asymptomatic.
2. 5mm hemorrhagic microadenoma vs Rathke's cleft cyst in the sella turcica.
3. Uncontrolled DM.
4. Hypertension.
Patient has the following risk factors for their symptoms: Hx head trauma x2, HTN, HLD, NIDDM
Recommendations:
-Repeat MRI brain with contrast pending for further visualization of abnormality.
-Goal normotension.
-Goal normoglycemia, hbA1c is 13.1.
-Will check LDL.
-Neurosurgery consulted.
-DVT prophylaxis.
Discussed patient care with: Dr. Monteiro, the patient
Attending Note: Pat was seen, examined. Agree with exam, findings, Assessment and Plan
--- NOTE | 2023-12-27 09:31 | W.PN.HOSP.TC ---
Today's Communication/Plan
-
Brain MRI with contrast
MRA head and neck
Neurology consult
Neurosurgery consult
Increase bowel regimen
Assessment / Plan
Assessment / Plan
Gen-AAOx3, NAD
HEENT-NC, AT, anicteric, clear oral mm
Neck-supple
CV-reg, no M, +S1/S2
Lungs-clear B/L
Abd-soft, NT, ND
Ext-no edema
Musculoskeletal-no cyanosis, clubbing
Skin-warm and dry
Neuro-grossly non-focal
Psych-calm, cooperative
Right frontal lobe lesion -chronic hemorrhagic infarct versus vascular malformation noted on MRI. Will repeat MRI with contrast. Check MRA. Neurology and neurosurgery consulted.
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
Continue low-dose aspirin.
Left flank pain/abdominal pain -possibly related to chronic constipation. Last bowel movement was Tuesday. Bowel regimen ordered. Recommend high-fiber diet. Last colonoscopy was March 2014, noted external hemorrhoids, cecal polyp.
Recommendation for was for repeat colonoscopy in 2 years, appears that she did not follow-up.
CT of abdomen pelvis with IV contrast without acute pathology.
Magnesium citrate and fleets enema as needed ordered.
DM2 with hyperglycemia -hemoglobin A1c 13.1%. Normal anion gap acidosis. 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 Anticipate discharge on insulin. Was not on diabetes meds prior to admission. Does not have a primary care doctor. She goes to urgent care for her
needs. Encouraged her to start seeing a primary care doctor.
Glucose 237 this morning, received Lantus 12 units last night. Getting aspart 8 units with meals. Metformin started, 500 mg twice daily.
Essential hypertension -not on treatment at home. Continue lisinopril 10 mg daily.
Code: Full code
Anticipated Discharge: > 48 hours
Subjective/Interval History
-
Date of Service: December 27, 2023
Patient seen and examined. Still with constipation. 3 out of 10 headache.
Objective Data
-
Vital Signs:
Vital Signs
Temp Pulse Resp BP Pulse Ox
97.9 F 86 20 142/76 98
12/27/23 07:19 12/27/23 07:19 12/27/23 07:19 12/27/23 07:19 12/27/23 07:19
I&O
12/26/23 12/27/23 12/28/23
06:59 06:59 06:59
Intake Total 2059 1560 / 1560
Balance 2059 1560 / 1560
Review of Systems
-
History Source: Patient
All other systems: Reviewed and negative
[2023-12-27] MEDS: GLUCOPHAGE 500 MG PO ×2 (10:43→18:40)
[2023-12-27] MEDS: PROTONIX 40 MG PO (10:43)
[2023-12-27] MEDS: TYLENOL 650 MG PO (10:43)
[2023-12-27] MEDS: LOW STRENGTH ASPIRIN 81 MG PO (10:43)
[2023-12-27] MEDS: ZESTRIL 10 MG PO (10:44)
[2023-12-27] MEDS: NOVOLOG FLEXPEN-LOW RESISTANCE 2 UNITS SC (10:45)
[2023-12-27] MEDS: NOVOLOG FLEXPEN 8 UNITS SC ×3 (10:46→18:41)
[2023-12-27] MEDS: HEPARIN 5000 UNITS SC ×2 (10:47→20:34)
[2023-12-27] MEDS: MIRALAX PO (10:57)
[2023-12-27] MEDS: SENOKOT-S PO (10:59)
[2023-12-27] MEDS: CITROMA 300 ML PO (13:19)
[2023-12-27 14:09] LABS: HDL Cholesterol 41 mg/dl; LDL Cholesterol, Calculated 145 mg/dl; Total Cholesterol 263 mg/dl (50-199); Triglyceride 386 mg/dl (10-149); Very Low Density Lipoprotein 77 mg/dl (0-30)
--- NOTE | 2023-12-27 14:32 | CM ---
Reviewed the chart notes and spoke with the patient at the bedside. CM continues to be available to patient/family and is monitoring medical plan for needs at discharge.
Plan: Discharge to home when medically stable.
[2023-12-27 14:37] LABS: Glucose - Point of Care 295 mg/dl (70-99)
[2023-12-27] MEDS: NOVOLOG FLEXPEN-LOW RESISTANCE 3 UNITS SC (15:02)
[2023-12-27 15:07] VITALS: BP 169/89
[2023-12-27 15:16] LABS: Folate 14.9 ng/ml (2.76-20); Vitamin B12 728 pg/ml (239-931)
[2023-12-27 18:33] LABS: Glucose - Point of Care 139 mg/dl (70-99)
[2023-12-27] MEDS: NOVOLOG FLEXPEN-LOW RESISTANCE SC (18:40)
[2023-12-27] MEDS: FLEET MINERAL OIL ENEMA 133 ML RECTAL (19:35)
[2023-12-27] MEDS: SENOKOT-S 2 TABLET PO (20:34)
[2023-12-27 21:24] LABS: Glucose - Point of Care 183 mg/dl (70-99)
[2023-12-27] MEDS: LANTUS 0.15 UNITS SC (22:06)
[2023-12-27 23:55] VITALS: BP 149/57
[2023-12-28 07:35] VITALS: BP 144/82
--- NOTE | 2023-12-28 08:03 | PN.DE.MGMTRT ---
Insulin Management
- -
12/28/2023: Diabetes Management Follow up
Patient admitted for Left flank pain, noted for Hyperglycemia with a venous glucose of 439 on admission.
PMH: HTN, hx of CVA and T2DM for 5-6 years, states she was once on Metformin for sometime but it was discontinued due to significant weight loss.
She reports recent sx of increased thirst, urination, fatigue, vision changes and loss of sensation in both feet.
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
She states that she is very comfortable with glucose monitoring and has declined instructions for Glucose meter use but has requested a meter for home use- Contour Next has been provided. A1C 13.1%, Cr 0.6, eGFR >60 on admission. Discussed current
A1C and average blood sugar of 350 with pt.
Pt is awake, A/O x3, sitting up in bed, able to discuss diabetes mgt.
She was started on 70/30 12 units BID and low corrective insulin with meals by admitting team.
12/24 70/30 stopped, Lantus 12 units @ hs and NovoLog 8 units AC started with Metformin 500mg BID.
12/26 Lantus increased to 15 units @HS, Fasting glucose 169 this AM. Premeal glucose continues to improve
Cont current regimen; Lantus 15 units, NovoLog 8 units AC, low corrective insulin with meals and metformin 500mg BID
Insulin instructions provided and extra needles provided to Pt's Nurse to reinforce education for self administration of insulin.
Rx for test strips, lancets, and pen needles added to amb orders.
Diabetes History
- -
Type of Diabetes: 2 requiring insulin
Pre-Admission Diabetes Regimen
Lab Results
Hemoglobin A1c 13.1 % (4.0-5.6) H 12/25/23 06:38
Insulin Pump Settings
IP Diabetes Regimen
12/27/23 12/27/23 12/27/23
14:36 18:31 21:21
POC Glucose 295 H 139 H 183 H
Meal type: Lunch
Meal type: Breakfast
Amount consumed: 75%
Amount consumed: 90%
Patient Education
[2023-12-28 08:04] LABS: Glucose - Point of Care 169 mg/dl (70-99)
--- NOTE | 2023-12-28 08:43 | W.PN.NEURO.1 ---
Today's Communication / Plan
-
.
Neuro Assessment/Plan
Assessment
This is a 68-year-old left-handed female who has presented to the hospital on 12/24/23 with report of left flank pain starting 4 weeks ago and constipation x10 days followed by diarrhea. Patient's blood pressure was elevated at 176/88 and her blood
glucose was 439. 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
1. CT Head 12/25/23: There is a 2 cm focal low-density lesion in the subcortical white matter of the right frontal lobe, increased in size when compared with prior study and associated with overlying volume loss. This most likely is old infarct.
2. MRI brain noncontrast 12/26/23: 1.7 cm region of cortical gasca matter and subcortical white matter signal abnormality in the posterior right frontal lobe with a small curvilinear extra-axial signal abnormality in the overlying sulcus. Diagnostic
possibilities are (1) a chronic hemorrhagic infarct or (2) a slow flow vascular malformation with associated encephalomalacia. Mild diffuse cerebral and cerebellar volume loss. 5 mm hemorrhagic microadenoma or complex Rathke's cleft cyst in the
sella turcica. Mild paranasal sinus mucosal disease. Moderate-sized central disc herniation at C5/C6 causing mild spinal cord compression and central canal stenosis.
3. MRI brain with contrast 12/27/23: Focal area of volume loss and signal abnormality in the right frontal lobe as described. There is no evidence for abnormal enhancement, and this finding is highly suggestive of a region of old infarction with a
component of hemosiderin deposition from previous hemorrhage. No evidence for acute intracranial abnormality. 5 mm round focus of increased T1-weighted signal within the adenohypophysis, which does not appear to enhance after contrast. This most
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 Consider follow-up imaging with MRI of the brain/pituitary, suggested timeframe of one year.
4. MRA head/neck 12/27/23: No evidence for arterial supply to the area of signal abnormality in the right frontal lobe. No MR angiographic evidence for vascular malformation this region. No significant narrowing involving the common carotid arteries,
carotid bulbs, or proximal internal carotid arteries bilaterally. No significant narrowing of the vertebral or basilar arteries. Subtle luminal irregularity of the posterior cerebral arteries bilaterally, suggesting the possibility of
atherosclerotic disease.
I. Repeat MRI brain with contrast and MRA head/neck imaging supportive of right frontal lobe abnormality being and old small hemorrhage. This is likely due to past head trauma, but patient has significant risk factors for stroke. Patient
asymptomatic.
II. 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
III. Uncontrolled DM.
IV. Hypertension.
Plan
-Goal normotension.
-Goal normoglycemia, hbA1c is 13.1.
-LDL is 145. LDL goal<70. Atorvastatin 40mg daily initiated.
-Patient provided with a stroke education packet.
-DVT prophylaxis is okay.
-Neurology will follow as-needed, please contact our Neurology service with any questions/concerns.
Subjective/Objective
Subjective Data
Date of Service: December 28, 2023
No acute events overnight. Patient reports feeling good today. She still has a dull headache which she rates a 1-2/10. She denies any dizziness, vision changes, speech/swallow difficulty, focal numbness, weakness, chest pain, palpitations, and
shortness of breath. Per hospitalists note it appears she is having severe left lumbar pain, she failed to mention this to me.
Objective Data
Vital Signs
Temp Pulse Resp BP Pulse Ox
98.5 F 78 16 144/82 99
12/28/23 07:35 12/28/23 07:35 12/28/23 07:35 12/28/23 07:35 12/28/23 07:35
Lab Results
12/26/23 05:35
12/26/23 05:35
Sodium 137 mmol/L (135-145) 12/26/23 05:35
Potassium 3.8 mmol/L (3.5-5.1) 12/26/23 05:35
BUN 16 mg/dl (7-17) 12/26/23 05:35
Glucose 214 mg/dl (70-99) H 12/26/23 05:35
Calcium 9.2 mg/dl (8.4-10.2) 12/26/23 05:35
LDL Cholesterol, Calc 145 mg/dl 12/26/23 05:35
Vitamin B12 728 pg/ml (239-931) 12/26/23 05:35
Patient Allergies
No Known Allergies Allergy (Verified 03/27/18 13:50)
LDL Level: >70, statin ordered
Review of Systems
-
History Source: Patient
EENT: Blurry Vision (ongoing for weeks); Negative Decreased Vision or Swallowing Difficulty
Respiratory: Negative Cough or Trouble Breathing
Cardiac: Negative Chest Pain or Palpitations
Abdomen/GI: Negative Nausea
Neuro: Headache; Negative Dizzy, Weakness, Numbness, Ataxia, Tremors or Speech Problem
Physical Exam
-
General: Well Developed, Well Nourished and No Apparent Distress
Eyes: No Ptosis and PERRLA
HEENT: Normocephalic and Atraumatic
Neck: Full Range of Motion
Respiratory: No Dyspnea
GI: Non-distended
Extremities: No Clubbing, No Cyanosis and No Edema
Psych: Unremarkable
Extended Neurological Exam
Mood & Affect: Mood Unremarkable and Affect Unremarkable
Attention Span & Concentration: Awake, Alert, Interactive and No Difficulty with 2 Step Request
Memory: Unremarkable and Able to Recall
Tremor: Hand Tremor Absent and Head Tremor Absent
Involuntary Movement: None
Speech: Quality Unremarkable, Quantity Unremarkable and Rate of Production Unremarkable
Cranial Nerve II: Left Eye: Pupillary Reactivity Unremarkable, Pupillary Size Unremarkable and Visual Rivera Intact
Cranial Nerve II: Right Eye: Pupillary Reactivity Unremarkable, Pupillary Size Unremarkable and Visual Rivera Intact
Cranial Nerves III, IV, : Extraocular Movement: Extraocular Movement Full in all Directions
Cranial Nerve VII: Facial Symmetry: Normal Facial Symmetry
Cranial Nerve VIII: Hearing: Unremarkable Hearing to Normal Conversational Volume
Cranial Nerve XI: Shoulder Shrug: Unremarkable
Cranial Nerve XII: Tongue Protusion: Midline
Muscle Strength, Overall: Full Throughout
Muscle Bulk & Tone: Bulk Unremarkable and Tone Unremarkable
Pronator Drift: No Drift in Upper Extremities and No Drift in Lower Extremities
Touch Sensation: Double Simultaneous Stimulation Unremarkable
Coordination: [id number] Testing Unremarkable
Gait & Station: Up from Seated Without Problem
Data Reviewed
-
CT Head: Report Reviewed and Image Reviewed
MRI Head: Report Reviewed and Image Reviewed
MRA Head: Report Reviewed and Image Reviewed
MRA Neck: Report Reviewed and Image Reviewed
Labs: Report Reviewed
Lipid Profile: Report Reviewed
HgbA1C: Report Reviewed
Reviewed with: Physician and Patient
Medications
-
Active Medications
Generic Name Dose Route Start Last Admin
Trade Name Freq PRN Reason Stop Dose Admin
Acetaminophen 650 mg 12/24/23 23:36 12/27/23 10:43
Acetaminophen 325 Mg Tablet PO 01/21/24 23:35 650 mg
Q4HPRN PRN Administration
mild pain/GIL/temp> 100.4F
Aspirin 81 mg 12/25/23 17:00 12/27/23 10:43
Aspirin 81 Mg Chewable Tablet PO 01/22/24 16:59 81 mg
DAILY RIGOBERTO Administration
Atorvastatin Calcium 40 mg 12/28/23 18:00
Atorvastatin (Lipitor) 40 Mg Tablet PO 01/25/24 17:59
QPM RIGOBERTO
Bisacodyl 10 mg 12/24/23 23:36
Bisacodyl 10 Mg Rectal Suppository RECTAL 01/21/24 23:35
T12FAMS PRN
constipation
Dextrose 12.5 grams 07/20/24 23:36
Dextrose 50% (0.5 Grams/Ml) 50 Ml Syringe IV 01/21/24 23:35
[id number] PRN
hypoglycemia
Protocol
Glucagon 1 mg 12/24/23 23:36
Glucagon 1 Mg Vial IM 01/21/24 23:35
PRN PRN
hypoglycemia
Protocol
Heparin Sodium 5,000 units 12/25/23 08:00 12/27/23 20:34
Heparin 5,000 Units/Ml 1 Ml Vial SC 01/22/24 07:59 5,000 units
Q12 RIGOBERTO Administration
Hydralazine HCl 5 mg 12/24/23 23:36 12/26/23 09:41
Hydralazine 20 Mg/Ml Vial IV 01/21/24 23:35 5 mg
Q6HPRN PRN Administration
hyperetnsion
Insulin Glargine 15 units/ 0.15 mls @ 0 mls/hr 12/27/23 22:00 12/27/23 22:06
Device SC 01/24/24 21:59 0.15 mls
HS RIGOBERTO Administration
As Directed
Insulin Aspart 0 units 12/25/23 07:30 12/27/23 18:40
Insulin Aspart Low Resistance 300 Units/3 Ml Pen.Injctr SC 01/22/24 07:29 Not Given
AC RIGOBERTO
Protocol
Insulin Aspart 8 units 12/26/23 16:30 12/27/23 18:41
Insulin Aspart (100 Units/Ml) 3 Ml Flexpen SC 01/23/24 16:29 8 units
AC RIGOBERTO Administration
Lisinopril 10 mg 12/27/23 08:00 12/27/23 10:44
Lisinopril 10 Mg Tablet PO 01/24/24 07:59 10 mg
DAILY RIGOBERTO Administration
Metformin HCl 500 mg 12/26/23 17:00 12/27/23 18:40
Metformin 500 Mg Regular Release Tablet PO 01/23/24 16:59 500 mg
BID@0800,1700 RIGOBERTO Administration
Mineral Oil 133 ml 12/27/23 09:30 12/27/23 19:35
Mineral Oil (Fleet) Enema 133 Ml (4.5 Oz) RECTAL 01/24/24 09:29 133 ml
DAILYPRN PRN Administration
constipation
Pantoprazole Sodium 40 mg 12/25/23 12:00 12/27/23 10:43
Pantoprazole 40 Mg Delayed Release Tablet PO 01/22/24 11:59 40 mg
DAILY RIGOBERTO Administration
Polyethylene Glycol 17 grams 12/26/23 10:10 12/27/23 10:57
Polyethylene Glycol Powder 17 Grams Packet PO 01/23/24 10:09 Not Given
DAILY RIGOBERTO
Senna/Docusate Sodium 2 tablet 12/26/23 21:05 12/27/23 20:34
Docusate W/Senna (Elizabeth-Colace) Tablet PO 01/23/24 21:04 2 tablet
BID RIGOBERTO Administration
Sodium Chloride 0 flush 12/24/23 23:00
Sodium Chloride 0.9% (Flush) Syringe IV 01/21/24 22:59
PER PROTOCOL RIGOBERTO
Sodium Chloride 2 sprays 12/25/23 16:43
Sodium Chloride 0.65% Nasal [place] 45 Ml Bottle NASAL 01/22/24 16:42
QIDPRN PRN
dry nose
Home Medications
�Medication �Instructions �Recorded
blood sugar diagnostic (Contour #130 ea 12/26/23
Next Test Strips)
blood sugar diagnostic (Contour #130 ea 12/26/23
Next Test Strips)
metformin 500 mg tablet 500 mg PO BID@0800,1700 Diabetes 12/26/23
#60 tabs
pen needle, diabetic 32 gauge x #200 ea 12/26/23
532' (BD Ultra-Fine Sadie Pen
Needle)
--- NOTE | 2023-12-28 09:22 | W.PN.HOSP.TC ---
Today's Communication/Plan
-
Lumbar MRI
Assessment / Plan
Assessment / Plan
Gen-AAOx3, NAD
HEENT-NC, AT, anicteric, clear oral mm
Neck-supple
CV-reg, no M, +S1/S2
Lungs-clear B/L
Abd-soft, NT, ND
Ext-no edema
Musculoskeletal-no cyanosis, clubbing
Skin-warm and dry
Neuro-grossly non-focal
Psych-calm, cooperative
Right frontal lobe lesion -chronic hemorrhagic infarct versus vascular malformation noted on MRI. Will repeat MRI with contrast. Check MRA. Neurology and neurosurgery consulted.
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
Continue low-dose aspirin.
Severe constipation -improving on bowel regimen.
Left lateral lumbar pain -patient states it is severe. 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 States it has been present for about a month. Denies radiation of the pain. She is tender over the left lateral lumbar
spine. Check MRI of lumbar spine.
DM2 with hyperglycemia -hemoglobin A1c 13.1%. Normal anion gap acidosis. Diabetes GOLF COURSE MANAGER consulted. Anticipate discharge on insulin. Was not on diabetes meds prior to admission. Does not have a primary care doctor. She goes to urgent care for her
needs. Encouraged her to start seeing a primary care doctor.
Glucose 169 this morning, received Lantus 15 units last night. Getting aspart 8 units with meals. Metformin started, 500 mg twice daily.
Essential hypertension -not on treatment at home. Continue lisinopril 10 mg daily.
Code: Full code
Anticipated Discharge: Within 24 hours
Subjective/Interval History
-
Date of Service: December 28, 2023
Patient seen and examined. Complaining of severe left lateral back pain in the lumbar region.
Objective Data
-
Vital Signs:
Vital Signs
Temp Pulse Resp BP Pulse Ox
98.5 F 78 16 144/82 99
12/28/23 07:35 12/28/23 07:35 12/28/23 07:35 12/28/23 07:35 12/28/23 07:35
I&O
12/27/23 12/28/23 12/29/23
06:59 06:59 06:59
Intake Total 1560 / 1560 1680 / 1680
Balance 1560 / 1560 1680 / 1680
Review of Systems
-
History Source: Patient
All other systems: Reviewed and negative
[2023-12-28] MEDS: GLUCOPHAGE 500 MG PO ×2 (09:29→18:23)
[2023-12-28] MEDS: LOW STRENGTH ASPIRIN 81 MG PO (09:30)
[2023-12-28] MEDS: ZESTRIL 10 MG PO (09:30)
[2023-12-28] MEDS: PROTONIX 40 MG PO (09:30)
[2023-12-28] MEDS: NOVOLOG FLEXPEN-LOW RESISTANCE 1 UNITS SC (09:31)
[2023-12-28] MEDS: NOVOLOG FLEXPEN 8 UNITS SC ×3 (09:31→18:23)
[2023-12-28] MEDS: TYLENOL 650 MG PO ×2 (09:36→20:11)
[2023-12-28] MEDS: MIRALAX PO (09:48)
[2023-12-28] MEDS: HEPARIN SC ×2 (09:48→20:00)
[2023-12-28] MEDS: SENOKOT-S PO ×2 (09:49→20:00)
--- NOTE | 2023-12-28 11:42 | CON.NS ---
Consultation
-
Date/Time Consultation Performed: 12/28/2023; 11:40 am
Performing Provider: Kobi
Chief Complaint
History of Present Illness
This is a neurosurgical consultation on a 68-year-old female, who presented on with symptoms of flank pain, constipation, diarrhea. She reported developing a headache after admission. There was some notable photophobia associate with a
headache, which is no longer present. She denied any nausea, or vomiting with a headache. She denies having history of having migraine headaches. She did noncontrast head CT, which demonstrated a right frontal lesion, which then prompted an MRI.
The MRI without contrast demonstrated chronic hemorrhagic infarction versus underlying vascular malformation, as well a is a sellar lesion, which could be hemorrhagic microadenoma, versus Rathke's cleft cyst. There is no obvious evidence of
diplopia, diminished vision, or changes in vision over the last several years. She is not on any anticoagulants.
Given with this elevation, as well as right frontal lobe lesion, suspicious for possible vascular malformation versus hemorrhage or hemorrhagic infarction, generalized and MRI of the brain with contrast, neurosurgery was consulted.
Patient seen and examined. She reports some mild pressure behind her eyes and some photophobia, but symptoms have significantly improved. She denies any nausea or vomiting.
Review of Systems
-
A 10 point review of systems include constitutional, ENT, cardiovascular, respiratory, GI, , neurologic, musculoskeletal, hematologic, endocrinologic was performed, was negative, except for stated HPI.
Medication and Allergies
Home Medications
Home Medications
�Medication �Instructions �Recorded
blood sugar diagnostic (Contour #130 ea 12/26/23
Next Test Strips)
blood sugar diagnostic (Contour #130 ea 12/26/23
Next Test Strips)
metformin 500 mg tablet 500 mg PO BID@0800,1700 Diabetes 12/26/23
#60 tabs
pen needle, diabetic 32 gauge x #200 ea 12/26/23
' (BD Ultra-Fine Sadie Pen
Needle)
Allergies
Allergies
Allergy/AdvReac Type Severity Reaction Status Date / Time
No Known Allergies Allergy Verified 03/27/18 13:50
Physical Exam
-
Exam:
Awake, alert, no apparent distress.
Pupils are equal round reactive to light
Extraocular movements are full without any nystagmus.
Visual yin are full on gross confrontation.
Face is symmetric.
Tongue is midline.
Motor: 5/5 strength bilaterally in upper extremities lower extremities, without pronator drift.
Sensation is intact to light touch in bilateral upper extremities lower extremities.
Normal tone in bilateral upper and lower extremities.
Reflexes are symmetric bilaterally
Head is normocephalic, atraumatic.
Neck is supple.
Breathing nonlabored.
Regular rate and rhythm.
Abdomen is soft
Extremities are warm and dry.
Noncontrast CT scan of the head performed on 12/25/2023 demonstrates an area of hyperdensity within the right frontal lobe, suggestive of vasogenic edema.
MRI of the brain with and without contrast demonstrates T1 hypointense, nonenhancing lesion within the right frontal lobe. Imaging is consistent with area of encephalomalacia consistent with old hemorrhagic infarction, versus resolving right
frontal ICH. MRI of the brain with without contrast demonstrates small cystic lesion within the sella, most consistent with Rathke's cleft cyst. No obvious evidence of deviation of the infundibulum seen, no evidence of compression of the optic
chiasm is seen.
Problems
-
Problem Status Onset Code
Left flank pain R10.9
Diabetes mellitus E11.9
Acute hyperglycemia R73.9
Assessment / Plan
-
This is a 68-year-old female who presents with GI symptoms, and then subsequently developed a headache. Imaging revealed right frontal lobe area of hypodensity, suspicious for underlying lesion. Thus far, workup has been negative except for
demonstrating possible old infarction with hemorrhagic conversion, versus encephalomalacia from prior ICH.
Additionally, there is incidental Rathke's cleft cyst that is noted.
From a neurosurgical standpoint, no urgent indication for neurosurgical intervention at present time. Would recommend surveillance imaging with a follow-up brain MRI with and without contrast in approximately 3-6 months, as outpatient.
Patient can go home per my specialty: Today
[2023-12-28 12:07] LABS: Glucose - Point of Care 121 mg/dl (70-99)
[2023-12-28] MEDS: NOVOLOG FLEXPEN-LOW RESISTANCE SC ×2 (13:08→18:22)
--- NOTE | 2023-12-28 15:49 | CM ---
Reviewed the chart notes and spoke with the patient at the bedside. IMM reviewed and placed on chart. Consult for help with insulin cost received. CM found [facility] has a program for Humalog and Humulin products that would cost
$35/prescription since the patient has no coverage for prescriptions. Copy given to patient and a copy placed on chart for review. CM also provided patient with name of website [email or web address]) to review for additional resources. CM continues to be
available to patient/family and is monitoring medical plan for needs at discharge.
Plan: Discharge to home when medically stable. No anticipated needs.
[2023-12-28 18:23] LABS: Glucose - Point of Care 121 mg/dl (70-99)
[2023-12-28] MEDS: LIPITOR 40 MG PO (18:23)
[2023-12-28 20:22] VITALS: BP 162/85
[2023-12-28 21:07] LABS: Glucose - Point of Care 206 mg/dl (70-99)
[2023-12-28 21:08] VITALS: BP 150/82
[2023-12-28] MEDS: LANTUS 0.15 UNITS SC (22:42)
[2023-12-28 23:45] VITALS: BP 124/65
[2023-12-29] MEDS: TYLENOL 650 MG PO (00:20)
--- NOTE | 2023-12-29 07:12 | PN.DE.MGMTRT ---
Insulin Management
- -
12/29/2023: Diabetes Management Follow up
Patient admitted for Left flank pain, noted for Hyperglycemia with a venous glucose of 439 on admission.
PMH: HTN, hx of CVA and T2DM for 5-6 years, states she was once on Metformin for sometime but it was discontinued due to significant weight loss.
She reports recent sx of increased thirst, urination, fatigue, vision changes and loss of sensation in both feet.
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
She states that she is very comfortable with glucose monitoring and has declined instructions for Glucose meter use but has requested a meter for home use- Contour Next has been provided. A1C 13.1%, Cr 0.6, eGFR >60 on admission. Discussed current
A1C and average blood sugar of 350 with pt.
Pt is awake, A/O x3, sitting up in bed, able to discuss diabetes mgt.
She was started on 70/30 12 units BID and low corrective insulin with meals by admitting team.
12/24 70/30 stopped, Lantus 12 units @ hs and NovoLog 8 units AC started with Metformin 500mg BID.
12/26 Lantus increased to 15 units @HS, Fasting glucose 169 this AM. Premeal glucose continues to improve
12/28 Glucose in acceptable range, 121 to 206 at HS yesterday. Will continue current regimen; Lantus 15 units, NovoLog 8 units AC, low corrective insulin with meals and metformin 500mg BID
Discussed with patient importance of monitoring, she does not have a prescription plan; advised to obtain a generic glucose monitor at either [facility] or [facility]. She verbalized understanding. Reviewed both insulins and injection sites as well as times
to test and sites to test. Verbalized understanding.
She has been self injecting and feels confident using the prefilled pens.
Rx for test strips, lancets, Humalog and lantus or basaglar and pen needles added to amb orders.
Diabetes History
- -
Type of Diabetes: 2 requiring insulin
Pre-Admission Diabetes Regimen
Lab Results
Hemoglobin A1c 13.1 % (4.0-5.6) H 12/25/23 06:38
Insulin Pump Settings
IP Diabetes Regimen
12/28/23 12/28/23 12/28/23
08:02 12:06 18:21
POC Glucose 169 H 121 H 121 H
12/28/23
21:06
POC Glucose 206 H
Meal type: Lunch
Meal type: Breakfast
Amount consumed: 100%
Amount consumed: 100%
Patient Education
[2023-12-29 07:35] VITALS: BP 145/84
[2023-12-29 07:58] LABS: Glucose - Point of Care 140 mg/dl (70-99)
[2023-12-29] MEDS: NOVOLOG FLEXPEN-LOW RESISTANCE SC (08:03)
[2023-12-29] MEDS: NOVOLOG FLEXPEN 8 UNITS SC ×2 (09:01→12:03)
[2023-12-29] MEDS: LOW STRENGTH ASPIRIN 81 MG PO (09:02)
[2023-12-29] MEDS: GLUCOPHAGE 500 MG PO (09:02)
[2023-12-29] MEDS: MIRALAX PO (09:02)
[2023-12-29] MEDS: SENOKOT-S 2 TABLET PO (09:02)
[2023-12-29] MEDS: PROTONIX 40 MG PO (09:02)
[2023-12-29] MEDS: ZESTRIL 10 MG PO (09:02)
[2023-12-29] MEDS: HEPARIN SC (09:03)
--- NOTE | 2023-12-29 11:10 | W.PN.HOSP.TC ---
Today's Communication/Plan
-
Discharge
Assessment / Plan
Assessment / Plan
Gen-AAOx3, NAD
HEENT-NC, AT, anicteric, clear oral mm
Neck-supple
CV-reg, no M, +S1/S2
Lungs-clear B/L
Abd-soft, NT, ND
Ext-no edema
Musculoskeletal-no cyanosis, clubbing
Skin-warm and dry
Neuro-grossly non-focal
Psych-calm, cooperative
Right frontal lobe lesion -chronic hemorrhagic infarct versus vascular malformation noted on MRI. I spoke with patient as well as neurology. Apparently she had a head trauma about 2 years ago and fell off a horse. Neurology feels that the
findings on MRI do not reflect a stroke and likely reflect traumatic brain injury. Can discontinue aspirin.
Severe constipation -improving on bowel regimen.
Left lateral lumbar pain -patient states it is severe. 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 States it has been present for about a month. Denies radiation of the pain. She is tender over the left lateral lumbar
spine. Lumbar spine MRI shows chronic and mild degenerative changes. Suspect musculoskeletal pain and recommend conservative management.
DM2 with hyperglycemia -hemoglobin A1c 13.1%. Normal anion gap acidosis. Diabetes MACHINE OILER consulted. Anticipate discharge on insulin. Was not on diabetes meds prior to admission. Does not have a primary care doctor. She goes to urgent care for her
needs. Encouraged her to start seeing a primary care doctor.
Glucose 140 this morning, received Lantus 15 units last night. Getting aspart 8 units with meals. Metformin started, 500 mg twice daily.
Essential hypertension -not on treatment at home. Continue lisinopril 10 mg daily.
Code: Full code
Dispo - medically stable for discharge today. Outpatient follow-up.
32-minute spent discharge process.
Anticipated Discharge: Today
Subjective/Interval History
-
Date of Service: December 29, 2023
Patient seen and examined. No complaints today.
Objective Data
-
Vital Signs:
Vital Signs
Temp Pulse Resp BP Pulse Ox
97.8 F 88 18 145/84 98
12/29/23 07:35 12/29/23 09:02 12/29/23 07:35 12/29/23 09:02 12/29/23 07:35
I&O
12/28/23 12/29/23 12/30/23
06:59 06:59 06:59
Intake Total 1680 / 1680 1380 / 1380
Balance 1680 / 1680 1380 / 1380
Review of Systems
-
History Source: Patient
All other systems: Reviewed and negative
--- NOTE | 2023-12-29 11:20 | W.DS.TRANS ---
DC Summary - Medical Esthetician
-
Discharge Instructions:
Discharge Diagnosis/Procedures Uncontrolled diabetes, traumatic brain injury,
constipation, musculoskeletal back pain
Diet Diabetic, Carb Controlled
Activity As tolerated
Driving Restrictions As prior to admission
Bathing Restrictions None
Instructions:
Stand-Alone Forms:
Changes to Home Medications: No
Discharge Medications:
DC Medications w/original date entered in [facility] [employer]
blood sugar diagnostic (Contour Next Test Strips) #130 ea 12/26/23
blood sugar diagnostic (Contour Next Test Strips) #130 ea 12/26/23
metformin 500 mg tablet 500 mg PO BID@0800,1700 Diabetes #60 tabs 12/26/23
pen needle, diabetic 32 gauge x 5/32' (BD Ultra-Fine Sadie Pen Needle) #200 ea 12/26/23
aspirin 81 mg chewable tablet 81 mg PO DAILY #30 tabs 12/29/23
atorvastatin 40 mg tablet 40 mg PO QPM #30 tabs 12/29/23
insulin glargine 100 unit/mL (3 mL) subcutaneous pen (Lantus Solostar U-100 Insulin) 15 unit (0.15 mL) SC HS #5 ea 12/29/23
insulin lispro 100 unit/mL subcutaneous pen (Humalog KwikPen (U-100) Insulin) 8 unit (0.08 mL) SC AC #5 ea 12/29/23
lisinopril 10 mg tablet 10 mg PO DAILY #30 tabs 12/29/23
polyethylene glycol 3350 17 gram oral powder packet (HealthyLax) 17 g PO DAILY #0 ea 12/29/23
Home Medication Changes
Pending Results: No
[2023-12-29 11:52] LABS: Glucose - Point of Care 169 mg/dl (70-99)
--- NOTE | 2023-12-29 12:00 | CM ---
Reviewed the chart notes. Patient to be discharged to home today. CM continues to be available to patient/family and is monitoring medical plan for needs at discharge.
Plan: Discharge to home today with no additional needs being identified at this time. Patient's family to provide transportation.
[2023-12-29] MEDS: NOVOLOG FLEXPEN-LOW RESISTANCE 1 UNITS SC (12:02)
[2023-12-29 12:23] VITALS: BP 149/83
--- NOTE | 2023-12-29 12:31 | PTCARENOTE ---
Patient is up for discharge, instructions printed and handed to patient. Patient currently eating lunch, will discuss information and instructions when ready.
== END 2023-12-29 13:25 | disposition home or self-care (01) | DRG 83 ==
LOC: 2 NORTH 22:39
PROVIDERS: Registered Nurse; ADMITTING PHYSICIAN Internal Medicine; ATTENDING PHYSICIAN Hospitalist; CONSULT PHYSICIAN Psychiatry & Neurology Neurology; EMERGENCY PHYSICIAN Emergency Medicine; OTHER PHYSICIAN Neurological Surgery
DX: S06.30AA Unspecified focal traumatic brain injury with loss of consciousness status unknown, initial encounter (principal); E87.20 Acidosis, unspecified; M50.022 Cervical disc disorder at C5-C6 level with myelopathy; V80.010A Animal-rider injured by fall from or being thrown from horse in noncollision accident, initial encounter; Y93.52 Activity, horseback riding; Y92.9 Unspecified place or not applicable; E11.65 Type 2 diabetes mellitus with hyperglycemia; K59.00 Constipation, unspecified; M48.02 Spinal stenosis, cervical region; I10 Essential (primary) hypertension; E78.5 Hyperlipidemia, unspecified; M54.59 Other low back pain; G93.9 Disorder of brain, unspecified; J45.909 Unspecified asthma, uncomplicated; R19.7 Diarrhea, unspecified; R20.2 Paresthesia of skin; Z90.710 Acquired absence of both cervix and uterus; Z88.8 Allergy status to other drugs, medicaments and biological substances; Z82.3 Family history of stroke; Z82.0 Family history of epilepsy and other diseases of the nervous system; Z87.828 Personal history of other (healed) physical injury and trauma; Z91.199 Patient's noncompliance with other medical treatment and regimen due to unspecified reason; Z87.820 Personal history of traumatic brain injury
CPT/HCPCS: 70450; 70544; 70548; 70551; 70552; 72148; 74177; 80048; 80053; 80061; 81003; 82010; 82607; 82728; 82746; 82962; 83036; 83690; 84443; 85025; 85027; 86803; 96361; 96374; 96375; 96376; 99285; A9585; Q9967

== ENCOUNTER → 2024-03-13 15:04 | Outpatient (REF) | payer MEDICARE, OTHER, SELFPAY | LOC: HWRCS 15:04 | PROVIDERS: ATTENDING PHYSICIAN Internal Medicine | DX: I95.1 Orthostatic hypotension (principal) | CPT/HCPCS: 93306 ==

== ENCOUNTER 2024-10-24 18:17 | Inpatient (IN) | payer MEDICARE, OTHER, SELFPAY ==
[2024-10-24] VITALS (11 sets, daily range): BP systolic 100–168; BP diastolic 64–122; BMI 27.9
[2024-10-24 16:26] LABS: Glucose - Point of Care 312 mg/dl (70-99)
[2024-10-24 16:39] LABS: % Basophils 0.5 % (0-2); % Immature Granulocytes 0.1 % (0-0.5); % Monocytes 11.1 % (1.7-9.3); % Neutrophils 49.3 % (42.2-75.2); Absolute Eosinophils 0.2 10^3/uL (0-0.7); Absolute Lymphocytes 2.7 10^3/uL (1.2-3.4); Absolute Monocytes 0.8 10^3/uL (0.1-0.6); Absolute Neutrophils 3.7 10^3/uL (1.4-6.5); Hematocrit 34.8 % (37.0-47.0); Hemoglobin 12.2 g/dL (12.0-16.0); Mean Corp Hgb Conc. 35.1 g/dL (33.0-37.0); Mean Corpuscular Hgb 28.8 pg (27.0-31.0); Mean Corpuscular Volume 82.3 fL (81.0-99.0); Mean Platelet Volume 10.9 fL (7.4-10.4); Nucleated Red Blood Cells % 0 %; Platelet Count 159 10^3/uL (130-400); Red Blood Cell Count 4.23 10^6/uL (4.20-5.40); White Blood Cell Count 7.4 10^3/uL (4.8-10.8)
[2024-10-24 16:52] LABS: ALT (SGPT) 20 U/L (0-35); AST (SGOT) 22 U/L (14-36); Alkaline Phosphatase 83 U/L (38-126); Blood Urea Nitrogen 22 mg/dl (7-17); Calcium 8.9 mg/dl (8.4-10.2); Carbon Dioxide 24 mmol/L (22-30); Chloride 108 mmol/L (98-107); Estimated Creatinine Clearance 62 ml/min; Glucose 317 mg/dl (70-99); Potassium 4.5 mmol/L (3.5-5.1); Sodium 139 mmol/L (135-145); Total Bilirubin 0.5 mg/dl (0.2-1.3); Total Protein 6.9 g/dl (6.3-8.2); eGFR > 60.00
[2024-10-24 16:59] LABS: B-Hydroxybutyrate 0.18 mmol/L (0.02-0.27)
--- NOTE | 2024-10-24 17:01 | CON.CAR ---
Consultation
Consultation Request
Performing Provider: VICTORIANO Roberts for Juan C ChambersDO
Reason for Consultation: Chest pain
Medical History
-
Chief Complaint: chest pain
History of Present Illness:
PCP: [facility] Res[facility] (Fadumo Reyez MD listed as last PCP)
CDY: Juan Manuel Castro MD
69 y/o white female, [facility] HLD, IDDM, orthostatic hypotension, prior head trauma (fell off horse 2021) with chronic right frontal lobe lesion noted on CT (12/2023) with no neurological deficits, prior uterine tumor around kidney with radical
hysterectomy (around 2013), FH sig for Father with CAD/AL/CVA, former tobacco, non drinker. Had seen Dr. Castro in 02/2024 for orthostatic hypotension and was started on midodrine at the time, has been stable since then.
At lunch today, developed lh/dizziness/blurry vision, diaphoresis, nausea with mild SOB and jaw pain, no loss of consciousness. EMS was called, prehospital EKG with inferior ST elevations, brought to [facility] ER. Given aspirin 324mg, brilinta 180mg, and
heparin 5000u, and brought urgently to labor and employment paralegal. 1st troponin 0.568.
Past Medical History
Past Medical History: Cancer (Uterine tumor (2013)), Hypercholesterolemia, IDDM, Psychiatric (depression) and Other (orthostatic hypotension)
Past Surgical History: Gynecological (ROHAN/BSO (2013), benign breast lump removed (1978))
Social History
Tobacco: Former Smoker
Alcohol: None
Drug: None
Family History
Family History: CAD (Father- AL/CAD, CVA)
Allergies / Home Medications
Allergies
Allergy/AdvReac Type Severity Reaction Status Date / Time
No Known Allergies Allergy Verified 03/27/18 13:50
Home Medications
�Medication �Instructions �Recorded
metformin 500 mg tablet 500 mg PO BID@0800,1700 Diabetes 12/26/23
#60 tabs
duloxetine 30 mg capsule,delayed 30 mg PO DAILY 10/24/24
release (Cymbalta)
insulin glargine 100 unit/mL (3 12 unit SC HS 10/24/24
mL) subcutaneous pen (Lantus
Solostar U-100 Insulin)
insulin lispro 100 unit/mL 6 unit SC AC 10/24/24
subcutaneous pen (Humalog KwikPen
(U-100) Insulin)
midodrine 2.5 mg tablet 2.5 mg PO TID 10/24/24
Review of Systems
-
History Source: Patient
All other systems: Negative unless noted
Cardiac: Chest Pain (mild 06/15)
Neurological: Dizzy (mild)
Physical Exam
Vital Signs
Pulse Resp BP Pulse Ox
57 15 100/66 99
10/24/24 16:30 10/24/24 16:30 10/24/24 16:28 10/24/24 16:29
Lab Results
10/24/24 16:25
10/24/24 16:25
Laboratory Tests
10/24/24
16:37
Troponin I 0.568 H*
Physical Exam
General: Well Developed and Other (DEFERRED D/T URGENT NATURE OF AL)
Impression / Plan
-
PCP: [facility] Residency [facility] (Fadumo Reyez MD listed as last PCP)
CDY: Juan Manuel Castro MD
69 y/o white female, PMH HLD, IDDM, orthostatic hypotension, prior head trauma (fell off horse 2021) with chronic right frontal lobe lesion noted on CT (12/2023) with no neurological deficits, prior uterine tumor around kidney with radical
hysterectomy (around 2013), FH sig for Father with CAD/AL/CVA, former tobacco, non drinker. Had seen Dr. Castro in 02/2024 for orthostatic hypotension and was started on midodrine at the time, has been stable since then.
At lunch today, developed acute lh/dizziness/blurry vision, diaphoresis, nausea with mild SOB and jaw pain, no loss of consciousness. EMS was called, prehospital EKG with inferior ST elevations, brought to [facility] ER. Given aspirin 324mg, brilinta
180mg, and heparin 5000u, and brought urgently to labor and employment paralegal. 1st troponin 0.568.
Echo 03/13/24- nml Bi-V systolic function, EF 60-65%, no WMA, no sig valvular disease
IMPRESSION/PLAN:
Inferior STEMI
urgent cath
brilinta 180/asa 324 given in ER
plan pending cath results
1st trop 0.586- trend to peak
echo in AM
watch BP with addition of horace/bb d/t orthostatic hypotension
cardiology followup with Dr. Castro
IDDM- check HgbA1C-
was 13.1% in December 2023
insulin sliding scale and consult Diabetic PRODUCTION POSTING CLERK for management
HLD- elevated but not taking statin for no specific reason
will start high intensity statin therapy and check CVE in AM
Orthostatic Hypotension- midodrine 2.5mg TID
will get daily orthostatic BPs and monitor with addition of guideline directed medical therapy
Head trauma/chronic frontal lobe lesion- stable with no neurological deficits
Data Reviewed
-
EKG: Tracing Personally Visualized and interpreted and Report Reviewed by me
Medical Tests (Nuc Med, Echo etc): Report Reviewed by me
Labs: Labs Reviewed by me
Old Records: Reviewed
[2024-10-24 17:05] LABS: INR 0.95; PT 13.2 Sec (11.4-14.6)
--- NOTE | 2024-10-24 17:09 | ED.GENMED ---
History of Present Illness
General
Chief Complaint: Fainting Sensation
Source: patient
Exam Limitations: none
Nursing documentation reviewed up to this point in time: agreed with
History of Present Illness
History of Present Illness:
69-year-old female insulin-dependent diabetic was at a local diner apparently felt dizzy like she may pass out, could not walk, 911 was called she developed jaw pain in the ambulance apparently did not tell anyone brought here were nurses quickly
did an EKG which showed ST segment elevation [place] STEMI alert was called no history of CAD,
Past History
Past History
ED Past Medical History: HTN and IDDM; Negative GA
ED Past Surgical History: Gynecological (Total hysterectomy December 2013)
Social History
Tobacco: Non-smoker
Alcohol: None
Drug: None
Living: with family
Employment: Employed
Family History
Family History: Other (Noncontributory)
Review of Systems
Review of Systems
All Other Systems: Not applicable
Constitutional: Denies fever or fatigue
Respiratory: Reports trouble breathing
Cardiac: Reports diaphoresis; Denies chest pain
ABD/GI: Reports nausea
: Reports no symptoms
Musculoskeletal: Reports no symptoms
Skin: Reports no symptoms
Neurological: Reports dizzy
Endocrine: Reports no symptoms
Hematologic/Lymphatic: Reports no symptoms
Phy Exam
Physical Exam
Physical Exam:
Physical Exam
General: no apparent distress, not acutely ill
Neck: No jaundice no tongue
Heart: Bradycardia
Lungs: no acute respiratory distress. clear bilaterally
Abdomen: Not tender
Neuro: alert and oriented. no focal neurological deficits
Skin: no rash
Psychiatric: well kept. interactive and cooperative
Extremities: no edema. no calf tenderness.
Scores
Heart Score for Chest Pain Patients
STEMI patient?: Yes
Course
Orders/Labs/Results
Orders:
Orders
10/24/24 Dinner
1800 calorie (15 carb) Diabetic
At Your Request: Full Participation
Does patient need a safe tray?: No
10/24/24 16:25
BHB [B-Hydroxybutyrate] Urgent
Complete Blood Count/With Diff Urgent
Comprehensive Metabolic Panel Urgent
10/24/24 16:31
EKG [Electrocardiogram (*1)] Urgent
Reason for Study: Fatigue / Weakness
10/24/24 16:32
EKG- Treatment ONCE
10/24/24 16:37
Troponin I Urgent
10/24/24 16:38
PT/INR [Prothrombin Time] Urgent
10/24/24 16:53
Heparin 1000 Units/500 ml [Heparin] 1,000 units in 500 ml .ROUTE .STK-MED
Heparin Sodium,Porcine/Ns/Pf [Heparin 2000 Units/1000 ml] 2,000 unit in 1,000 ml .ROUTE .STK-MED
Lidocaine HCl/Pf [Xylocaine-Mpf 1% Vial] 100 mg .ROUTE .STK-MED ONE
Nitroglycerin [Tridil] 1,500 mcg .ROUTE .STK-MED ONE
10/24/24 16:59
Fentanyl Citrate/Pf [Sublimaze] 100 mcg .ROUTE .STK-MED ONE
Heparin 10,000 units .ROUTE .STK-MED ONE
Midazolam HCl [Versed] 2 mg .ROUTE .STK-MED ONE
10/24/24 17:00
Aspirin Chewable [Low Strength Aspirin] 324 mg .ROUTE .STK-MED ONE
Heparin 5,000 units .ROUTE .STK-MED ONE
10/24/24 17:02
Ticagrelor [Brilinta] 180 mg .ROUTE .STK-MED ONE
10/24/24 17:03
Verapamil Injectable [Isoptin/Verapamil Injection] 5 mg .ROUTE .STK-MED ONE
10/24/24 17:41
Enalaprilat [Vasotec] 1.25 mg .ROUTE .STK-MED ONE
10/24/24 17:46
Admit Patient As Directed
Co-Sign Provider:
Level of Care: Inpatient admission
Assign to:: IVU
Physician / Group: CORDELL/Reyes
Diagnosis: Inferior STEMI
Reason for Hospitalization: Inferior STEMI
Expected length of stay greater than two midnights?: Yes
ELOS- Estimated Length of Stay in days: 2
I certify the patient meets the requirements for IP care: Yes
Electrocardiogram (*1) Urgent
Reason for Study: Other
Other Reason for Exam: s/p intervention
Comment: cordell
Code Status As Directed
Resuscitation Status: Full Code
CARDIAC REHAB CONSULT Routine
Co-Sign Provider:
Cardiac Rehab & Exercise Evaluation Referral
Type of Cardiac Rehab Referral: Outpatient
Diagnosis: STEMI
Date of Diagnosis/Surgery: 10/24/24
Referring Provider: Juan Manuel Castro
[facility] Intensive Cardiac Rehab Exercise Prescription
The above named person is capable of participating in an intensive cardiac rehab exercise therapy program
under the guidance of the [facility] cardiac rehab staff, outpatient registered dieticians and
supervision of a physician.
ICR Program Objectives:
Provide supervised exercise, cooking classes, nutritional counseling and healthy mind-set education to
improve the function/symptom free work capacity to an optimal level as well as control risk factors to
prevent the progression of heart disease. During the supervised exercise therapy session some or all of
the following may be included in the cardiac rehab session: ECG telemetry, BP, heart rate, rate of
perceived exertion, symptoms/tolerance, cholesterol testing and education. Exercise modalities may
include: treadmill, upright or recumbent bike, spin bike, rowing machine, elliptical, recumbent
elliptical, arm-bike machine, recumbent stepper and free weights.
Intensity:
All CR staff will use ACSM guidelines: Most patients will exercise in the following range: Heart Rate
[place] range of 40% to 80% & Oxygen Uptake reserve range 40-80% (VO2R). Peak heart rate and VO2 are
derived from the cardiac rehab submaximal graded exercise test at RPE of 13/14 out of 20. Initial
intensity range: RPE 11 to 14/20 and may expand to 11 to 16/20.
Duration & Frequency:
If appropriate the patient will be progressed up to 40 minutes of exercise therapy. Patients will be
instructed to come three times a week in cardiac rehab and at a home/other gym to achieve optimal
physical activity/exercies i.e. 4000-10,000 steps per day.
Education:
The patient will receive one-on-one education during their orientation, initial exercise evaluation, ITP
reassessments and discharge session. Each exercise session will also include an education class (30-40
minutes).
Acetaminophen [Tylenol] 650 mg PO Q4HPRN PRN
Activity As Directed
Activity Level: Out of Bed- Chair
Comment: bed/chair rest for 2 hours then out of bed ad mary
Forest Supervisor Procedure As Directed
Cardiac Cath Procedure: percutaneous coronary intervention
Intake/ Output As Directed
Frequency: Per unit guidelines
Notify MD As Directed
Notify physician if: immediately for chest pain or bleeding from access site(s)
Radial Artery Hemostasis Method As Directed
Instructions:: 3 mL out at 2 hour posts placement of band
3 mL out at 2 1/2 hours post placement of band
3 mL out at 3 hours post placement of band
Off at 3 1/2 hours post placement of band
If any oozing or hemotoma occurs:: re-inflate band and call provider
Site Checks As Directed
Check access site for bleeding/hematoma: Yes
Comment: on arrival, Q15min x4, Q30min x2, Q1 hr x2, Q2 hr x2, Q4 hr or per
protocol
Vascular Checks As Directed
Location: distal to access site - pulse check
Frequency: Other
Comment: on arrival, Q15min x4, Q30min x2, Q1 hr x2, Q2 hr x2, Q4 hr or per protocol
Vital Signs As Directed
Frequency: Other
Additional Instructions:: on arrival, Q15min x4, Q30min x2, Q1 hr x2, Q2 hr x2, then Q4 hr or per unit
protocol
PRN Pain Medication Management As Directed
May give lesser potent ordered pain med per pt: Yes
preference::
Protocol:: Medication orders for pain may be administered in a
manner that supports deferring to patient preference
when the pt is:
- Requesting an ordered lesser potent pain medication.
Least to most potent pain medications are defined
as: acetaminophen < NSAID < tramadol < opioids
(morphine, oxycodone, hydromorphone).
- Requesting a lesser dose of the same medication IF
ORDERED.
- Requesting a less intrusive route of administration
if both routes are prescribed by the provider (PO <
IV).
10/24/24 17:47
DX Deep Vein Thrombosis Video Routine
10/24/24 17:51
Dextrose 50%-Water [Dextrose 50% Syringe] 12.5 grams IV [id number] PRN
Glucagon [GlucaGen] 1 mg IM PRN PRN
Bedside Glucose Monitoring As Directed
Frequency: AC&HS
Additional Instructions:: Change to q6h if pt on TPN, tube feeding or not eating
10/24/24 18:00
0.9% Sodium Chloride 1000 ml [Nss] 1,000 ml IV PER PROTOCOL
Infusion rate in mL/kg/hr:: 1.5
Infusion rate in mL/hr:: 114
Duration of infusion (hours):: 5
Atorvastatin [Lipitor] 80 mg PO QPM
10/24/24 18:01
Cardiothoracic Surgery Consult Routine
Consulting Provider: Joseluis Espitia
Was physician already notified: Yes
Reason for Consult: CABG eval
10/24/24 18:02
Case Management Consult ONCE
Case Management Consult: Other
Comment: brilinta cost
10/24/24 18:03
Orthostatic Vital Signs As Directed
Orthostatic VS Frequency: Daily
10/24/24 22:00
Troponin I Q6H
10/25/24 04:00
Troponin I Q6H
10/25/24 06:00
Echo 2D MMode Color/Doppler IN AM
Reason for Study: inferior stemi
Electrocardiogram (*1) IN AM
Reason for Study: Other
Other Reason for Exam: s/p intervention
Comment: cbc
Cardiovascular Evaluation IN AM
Complete Blood Count/No Diff IN AM
Comprehensive Metabolic Panel IN AM
Glycohemoglobin (HgbA1c) IN AM
Magnesium IN AM
10/25/24 07:30
Insulin Aspart Corrective Mod [Novolog Flexpen-Moderate Resistance] See Protocol SC AC
10/25/24 08:00
Aspirin Chewable [Low Strength Aspirin] 81 mg PO DAILY
Duloxetine Delayed Release [Cymbalta Delayed Release] 30 mg PO DAILY
Ticagrelor [Brilinta] 90 mg PO BID
10/25/24 10:00
Troponin I Q6H
10/25/24 18:00
Enoxaparin Sodium [Lovenox] 40 mg SC QPM
10/26/24 06:00
Electrocardiogram (*1) IN AM
Reason for Study: Other
Other Reason for Exam: s/p intervention
Comment: cbc
Complete Blood Count/No Diff IN AM
Abnormal Lab Results
10/24/24 10/24/24
16:25 16:37
Hct 34.8 L %
(37.0-47.0)
MPV 10.9 H fL
(7.4-10.4)
Absolute Monos (auto) 0.8 H 10^3/uL
(0.1-0.6)
Monocytes % 11.1 H %
(1.7-9.3)
Chloride 108 H mmol/L
(98-107)
BUN 22 H mg/dl
(7-17)
Glucose 317 H mg/dl
(70-99)
Troponin I 0.568 H* ng/ml
POC Glucose 312 H mg/dl
(70-99)
10/24/24 16:25
10/24/24 16:25
Vital Signs
Initial and Last Documented VS:
Initial Vital Signs
BP
100/66
10/24/24 16:28
Last Documented Vital Signs
Temp Pulse Resp BP Pulse Ox
97.5 F 57 15 100/66 99
10/24/24 17:00 10/24/24 16:30 10/24/24 16:30 10/24/24 16:28 10/24/24 16:29
MDM/Problems Addressed
Differential Diagnosis Includes:
STEMI, LV aneurysm, Takotsubo
MDM/Problems Addressed:
ST segment elevation, diabetes,
Chronic conditions affecting care: DM
Acute Exacerbation and/or Progression of Chronic Illness: DM
*Pulse Oximetry
Patient hypoxic: no
*EKG
Interpretation: normal
Comparison EKG: no comparison EKG present
Heart Rate: 70
Rate: normal
Rhythm: sinus
Ischemia: ST elevation
*Compensator Worker Interpretation
Rate: normal
Interpretation: normal
Heart Rate: 70
Rhythm: sinus
*Critical Care Note
Total Time (30-74mins, 75-104mins- exclusive of procedures): 20
Update Note
Update Note:
Update history and physical consistent with ST segment elevation GA she is diabetic did have jaw pain, near syncope perhaps vagal perhaps arrhythmia blood sugar in the 300s, taken to [facility] by myself with nursing
ED Attending Note
-
Portions of this chart may have been created with voice recognition software.� Occasional wrong word or��sound alike� substitutions may have occurred due to the inherent limitations of voice recognition software.
Discharge Plan
Departure
Patient Disposition: Admit
Date of Disposition: 10/24/24
Time of Disposition: 17:07
Admit to: veterinarian laboratory animal care
Presentation/result/management discussed w/ accepting MD/DO: cardiology
Condition: Serious
Discharge Problem:
Diabetes mellitus, Acute hyperglycemia, Inferior and right sided ST segment elevation
Interventions
Interventions:
*Risk Screen - Suicide Last Done: 10/24/24 16:28
*General Assessment Last Done: 10/24/24 16:28
*Neglect/Abuse Screening Last Done: 10/24/24 16:28
*ED- Fall Risk Assessment Last Done: 10/24/24 16:28
*ED COVID-19 Vaccine History Last Done: 10/24/24 16:28
*Nursing Disposition Last Done: 10/24/24 17:15
ED- Cardiac Assessment Last Done: 10/24/24 16:30
ED- Neurological Assessment Last Done: 10/24/24 16:30
Discharge Date and Time
Discharge Date/Time: 10/24/24 17:16
[2024-10-24 17:14] LABS: Troponin I 0.568 ng/ml
[2024-10-24] MEDS: NSS 1000 IV (18:20)
--- NOTE | 2024-10-24 18:33 | ITS.CL.ANGIO ---
Granulator Operator - Angioplasty
Angioplasty
Procedure Report:
CARDIAC CATHETERIZATION REPORT
Date of Procedure: 10/24/2024
Referring: Giovany Fernandes D.O.
INDICATION: ST elevation myocardial infarction.
PROCEDURE:
1. Left heart catheterization.
2. Coronary angiography.
3. Successful PCI of the proximal RCA.
4. Left ventriculography.
A total of 39 minutes of procedural/moderate sedation was utilized. An independent medical reception was present to assist with and help manage the patient's level of consciousness and physiologic status.
ACCESS:
1. 6 Ivorian right radial artery using a modified Seldinger technique.
CATHETERS:
1. 5 Ivorian JR4.
2. 5 Ivorian JL 3.5.
3. 6 Ivorian JR4 guiding catheter.
HEMODYNAMIC DATA
Weight (kg): 76.0
AO (s/d/x, mmHg): 157/93/123
LV (s/x mmHg): 159/25
LEFT VENTRICULOGRAPHY: Performed in an CARRERA projection. Normal left ventricular size with severe hypokinesis/akinesis of the entire inferior wall and mildly reduced systolic function. Left ventricular ejection fraction estimated at 40-45%. There
is no mitral valve regurgitation. There is no evidence of aortic valve insufficiency. The aortic root, visualized ascending and descending aorta are normal.
CORONARY ANGIOGRAPHY
Dominance: Right.
Left Main: Normal size, trifurcating vessel. There is no coronary artery disease.
LAD: Normal size vessel giving rise to a large diagonal. There is a 90% lesion in the proximal LAD, proximal to the origin of the diagonal. There is a 70% lesion in the mid LAD immediately after the origin of the diagonal.
Ramus: Small to medium size vessel. There is mild diffuse disease in the distal margin.
Circumflex: Relatively small, nondominant vessel giving rise to 1 significant obtuse marginal. There is a 70% lesion in the origin of OM1.
RCA: Large size, dominant vessel. The RPDA supplies the proximal inferior septum. The distal inferior septum is supplied by septal perforators from a large RV marginal branch. There is a thrombotic, 95% culprit lesion in the proximal RCA with
ALEX II flow. There is a 40% lesion in the mid RCA. There is a long, 70% lesion in the distal RCA before the origin of the RPDA. There is an 80% lesion in the midportion of the large posterolateral branch.
INTERVENTION(S)
1. Successful PCI of the culprit, 90% proximal RCA lesion (Medtronic Desmond [place] 3.5 x 26 LITTLE, postdilated with a 3.5 NC balloon) with reduction in stenosis to 0%, restoring ALEX-3 flow.
Narrative:
The decision was made to proceed with percutaneous coronary intervention on the culprit lesion with an intention to have the patient return for coronary artery bypass surgery after an appropriate post PCI duration. The diagnostic catheter was
removed over a wire and a 6Fr JR4 guiding catheter was advanced to the aortic root and seated in the right coronary artery. Additional heparin was given and a Power Turn Flex wire was advanced into the distal RCA. The culprit, 95% proximal RCA
lesion was predilated with a 2.0 x 12 semi-compliant balloon to 12 nik. The semi-compliant balloon was removed and a Medtronic Desmond [place] 3.5 x 26 drug-eluting stent was advanced. The stent was deployed at 12 atmospheres. The stent balloon was
removed. A 3.5 x 15 noncompliant balloon was advanced into the stent and the stent was postdilated to 14 atmospheres in the distal margin and 16 nik in the proximal margin. Angiography was performed in orthogonal views, confirming good stent
expansion and an excellent angiographic result. The coronary wire was withdrawn and the guide was disengaged from the artery. The catheter was removed over a standard J-wire.
Closure Device: Vascular band.
Radiation (mGy): 434.59
DAP (cm2.Gy): 39.1594
Fluoroscopy time (minutes): 6.6
CONCLUSIONS
1. Right dominant circulation with a 90% lesion in the proximal LAD, proximal to the origin of a large diagonal, a 70% lesion in the mid LAD immediately distal to the origin of the large diagonal, a 70% lesion in the origin of OM1, a 40% lesion in
the mid RCA, along 70% lesion in the distal RCA before the origin of the RPDA, and 80% lesion in the midportion of the large posterolateral branch and a culprit, 95% lesion in the proximal RCA with ALEX II flow, status post successful PCI (Medtronic
Desmond [place] 3.5 x 26 LITTLE, postdilated with a 3.5 NC balloon) with reduction in stenosis to 0%, restoring ALEX-3 flow.
2. Severely elevated filling pressure (LVEDP = 25 mmHg at 76.0 kg).
3. Normal left ventricular size with severe hypokinesis/akinesis of the inferior wall and mildly reduced left ventricular systolic function (LVEF estimated at 40-45%).
RECOMMENDATIONS:
1. Expectant management after cardiac catheterization via right radial approach.
2. Limited weight bearing on the right wrist for one week.
3. Dual antiplatelet therapy with aspirin and ticagrelor for at least 30 days.
4. After discussion with CT surgery, we believe the best course will be percutaneous management of the culprit lesion followed by staged coronary artery bypass grafting surgery after an appropriate amount of dual antiplatelet therapy.
5. Echocardiogram ordered and pending.
6. OMT/GDMT as hemodynamics will tolerate.
7. Aggressive secondary prevention with high-dose, high potency statin. Goal LDL <55.
8. Referral to cardiac rehab after CABG.
Copy to: Juan Manuel Castro M.D., Ph.D., Fadumo Reyez M.D.
Juan C Chambers, , FACC, FACP
[2024-10-24 18:41] LABS: Glucose - Point of Care 292 mg/dl (70-99)
[2024-10-24 20:16] LABS: Glucose - Point of Care 271 mg/dl (70-99)
[2024-10-24] MEDS: NOVOLOG FLEXPEN-MODERATE RESISTANCE 5 UNITS SC (20:26)
[2024-10-24] MEDS: LIPITOR 80 MG PO (20:27)
[2024-10-24 22:45] LABS: Glucose - Point of Care 229 mg/dl (70-99)
[2024-10-24] MEDS: LANTUS 0.12 UNITS SC (22:50)
[2024-10-25] VITALS (14 sets, daily range): BP systolic 93–153; BP diastolic 53–89; PULSE 65–80; BMI 27.1
[2024-10-25] MEDS: TYLENOL 650 MG PO ×2 (04:00→11:53)
[2024-10-25 04:11] LABS: Mean Corp Hgb Conc. 34.3 g/dL (33.0-37.0); Mean Corpuscular Hgb 28.3 pg (27.0-31.0); Mean Corpuscular Volume 82.5 fL (81.0-99.0); Mean Platelet Volume 11.4 fL (7.4-10.4); Platelet Count 174 10^3/uL (130-400); Red Blood Cell Count 4.24 10^6/uL (4.20-5.40); Red Cell Dist. Width 13.1 % (11.5-14.5); White Blood Cell Count 8.2 10^3/uL (4.8-10.8)
--- NOTE | 2024-10-25 04:13 | PTCARENOTE ---
Rec'd pt. at change of shift AAOx3, VSS, no complaints of further chest discomfort or jaw pain. NSR on the monitor. Able to remove air from right radial TR band & remove band without difficulty, no hematoma or bleeding assessed, sensation and
circulation intact. Pt. did have an approx. 5 minute episode of 'tunnel vision' at approx. 2009, described as peripheral vision becoming hazy. No other symptoms present, Neurocheck performed and found to be WNL, vitals stable, blood sugar 271.
Episode passed quickly. Dr. Chambers made aware, instructed to monitor for further symptoms (none so far). Pt. OOB post cath without issues, voiding without difficulty. Currently sleeping.
[2024-10-25 04:25] LABS: ALT (SGPT) 27 U/L (0-35); AST (SGOT) 78 U/L (14-36); Alkaline Phosphatase 84 U/L (38-126); Blood Urea Nitrogen 19 mg/dl (7-17); Calcium 9.3 mg/dl (8.4-10.2); Carbon Dioxide 26 mmol/L (22-30); Chloride 110 mmol/L (98-107); Estimated Creatinine Clearance 61 ml/min; Glucose 141 mg/dl (70-99); HDL Cholesterol 48 mg/dl; LDL Cholesterol, Calculated 150 mg/dl; Potassium 3.9 mmol/L (3.5-5.1); Sodium 141 mmol/L (135-145); Total Bilirubin 0.5 mg/dl (0.2-1.3); Total Cholesterol 244 mg/dl (50-199); Triglyceride 230 mg/dl (10-149); Very Low Density Lipoprotein 46 mg/dl (0-30); eGFR > 60.00
[2024-10-25 07:58] LABS: Glucose - Point of Care 132 mg/dl (70-99)
[2024-10-25 08:06] LABS: ACT-LR - POC > 397 Seconds (116-155)
[2024-10-25 08:06] LABS: ACT-LR - POC > 397 Seconds (116-155)
[2024-10-25] MEDS: BRILINTA 90 MG PO ×2 (08:06→20:03)
[2024-10-25] MEDS: LOW STRENGTH ASPIRIN 81 MG PO (08:06)
[2024-10-25] MEDS: NOVOLOG FLEXPEN-MODERATE RESISTANCE SC (08:06)
--- NOTE | 2024-10-25 08:33 | W.PN.CD ---
Today's Communication / Plan
-
Echocardiogram.
Start metoprolol succinate 12.5 mg daily.
Start dapagliflozin 10 mg daily. Case management consult.
Furosemide 40 mg IV x1.
Daily orthostatic vital signs.
Impression / Plan
-
Impression/Plan: 69 y/o female with PMH HLD, IDDM, orthostatic hypotension, prior head trauma (fell off horse 2021) with chronic right frontal lobe lesion noted on CT (12/2023) with no neurological deficits, prior uterine tumor around kidney with
radical hysterectomy (around 2013), FH sig for Father with CAD/ME/CVA, prior tobacco abuse admitted with inferior STEMI.
#Inferior STEMI/CAD
-Acute, resolved.
-Cardiac catheterization showed severe, multivessel CAD with a 95% culprit pRCA lesion, now s/p PCI (Medtronic [place] 3.5 x 26 LITTLE, post dilated with 3.5 NCB) with reduction in stenosis to 0%, restoring ALEX III flow.
-Troponin up to 22.7 (not yet peaked).
-DAPT with aspirin and ticagrelor for at least 30 days. After 30 days, we will hold ticagrelor and allow for 5 days of washout with intention to return for CABG.
-CT surgery consult today.
-Echo ordered/pending. LVEF 40-45% with inferior hypokinesis on LV gram.
-High dose, high potency statin.
-It is concerning that she NEVER had chest pain (lightheadedness/nausea). She may have impaired anginal warning (diabetic neuropathy?).
-OMT/GDMT as hemodynamics will tolerate.
#ICMO/HFmEF
-Acute.
-LVEF 40-45% with inferior hypokinesis on LV gram. LVEDP = 25 mmHg.
-Echocardiogram pending.
-Furosemide 40 mg IV x1.
-Start dapagliflozin 10 mg daily. Case management consult.
-Start metoprolol succinate 12.5 mg daily.
#IDDM
-Chronic, uncontrolled.
-HgbA1C was 13.1% in December 2023.
-Repeat HbA1c pending.
-Insulin sliding scale and consult Diabetic BREAD OVEN OPERATOR for management.
-Given CAD, she would benefit from GLP-1 agonist at discharge.
#HLD
-Chronic, uncontrolled.
-Total cholesterol = 244, LDL = 150, HDL = 46, Triglycerides = 230.
-Atorvastatin 80 mg daily.
-Goal LDL < 55.
#Hypertension/Orthostatic Hypotension
-Chronic, stable.
-Not currently requiring midodrine 2.5mg TID.
-Caution as we add GDMT/OMT.
#Head trauma/chronic frontal lobe lesion- stable with no neurological deficits
PCP: [facility] (Fadumo Reyez MD listed as last PCP)
CDY: Juan Manuel Castro MD
Subjective/Interval History:
Inferior STEMI treated with PCI of pRCA yesterday.
Patient has severe, residual CAD. Interestingly, no chest pain or angina.
BP mildly/moderately elevated overnight, positive orthostatics this morning (diastolic BP dropped > 10 mmHg).
DATA:
Cardiac Catheterization/PCI, 10/24/2024:
CONCLUSIONS
1. Right dominant circulation with a 90% lesion in the proximal LAD, proximal to the origin of a large diagonal, a 70% lesion in the mid LAD immediately distal to the origin of the large diagonal, a 70% lesion in the origin of OM1, a 40% lesion in
the mid RCA, along 70% lesion in the distal RCA before the origin of the RPDA, and 80% lesion in the midportion of the large posterolateral branch and a culprit, 95% lesion in the proximal RCA with ALEX II flow, status post successful PCI (Medtronic
[place] 3.5 x 26 LITTLE, postdilated with a 3.5 NC balloon) with reduction in stenosis to 0%, restoring ALEX-3 flow.
2. Severely elevated filling pressure (LVEDP = 25 mmHg at 76.0 kg).
3. Normal left ventricular size with severe hypokinesis/akinesis of the inferior wall and mildly reduced left ventricular systolic function (LVEF estimated at 40-45%).
Physical Exam
Vital Signs/Labs
Vital Signs
Temp Pulse Resp BP Pulse Ox
37.1 C 81 20 153/89 97
10/25/24 07:26 10/25/24 04:00 10/25/24 07:26 10/25/24 03:16 10/25/24 07:26
10/23/24 10/24/24 10/25/24
11:59 11:59 11:59
Actual Weight 73.9 kg
10/25/24 03:44
10/25/24 03:44
PT 13.2 Sec (11.4-14.6) 10/24/24 16:38
INR 0.95 10/24/24 16:38
Magnesium 2.0 mg/dl (1.6-2.3) 10/25/24 03:44
Triglycerides 230 mg/dl (10-149) H 10/25/24 03:44
LDL Cholesterol, Calc 150 mg/dl 10/25/24 03:44
VLDL Cholesterol, Calc 46 mg/dl (0-30) H 10/25/24 03:44
HDL Cholesterol 48 mg/dl 10/25/24 03:44
LAB Results
10/24/24 10/24/24 10/25/24
16:37 22:14 03:44
Troponin I 0.568 H* 13.600 H* D 22.700 H* D
Physical Exam
Constitutional: No acute distress and Comfortable
EENT: Anicteric and Moist mucous membranes
Cardiovascular: Rhythm & rate is regular, Pedal edema is absent, JVD pressure is normal, S1S2 is normal and Murmur/rub/gallop absent
Respiratory: Respiratory effort normal, Lungs clear to auscul., Wheeze Absent, Crackles Absent and Rhonchi Absent
GI: Soft, Distention absent, Flat, Non tender and Normal bowel sounds
Neuro/Psych: AO x 3
Other: Cath Site (Right radial access site is C/D/I.)
Data Reviewed
-
Date of Service: October 25, 2024
Medical Decision Making: Reviewed Test Results, Independent Historian Assessment and Test Interpretation
EKG: Tracing Personally Visualized and interpreted and Report Reviewed by me
Echo: Ordered by me
X-Ray/CT/US/MRI/NUC/PET: Image Personally Visualized and interpreted and Report Reviewed by me
Medical Tests (PFT, Pathology etc): Image Personally Visualized and interpreted, Report Reviewed by me, Discussed with Patient and Discussed with Family
Labs: Labs Reviewed by me
Old Records: Reviewed
[2024-10-25 09:17] LABS: Glycohemoglobin (HgbA1c) 9.5 % (4.0-5.6)
[2024-10-25] MEDS: TOPROL XL 12.5 MG PO (09:29)
[2024-10-25] MEDS: LASIX 40 MG IV (09:29)
[2024-10-25] MEDS: ProAmatine 2.5 MG PO ×3 (09:29→17:47)
--- NOTE | 2024-10-25 09:36 | CONSULT.CT ---
Consultation
-
Date/Time Consultation Requested: 10/25/24
Date/Time Consultation Performed: 10/25/24
Reason for Consultation: CAD
Patient History
Physicians
Family Physician: Dr. Fadumo Reyez MD ([facility])
Outpatient Terminal System Operator: Dr. Juan Manuel Castro ([facility])
Inpatient Terminal System Operator: Dr. Juan C Chambers
History of Present Illness
69-year-old female with PMHx of HLD, IDDM (A1C 13.1%), orthostatic hypotension, prior head trauma s/p fall from horse (2021) with chronic R frontal lobe lesion (present on CT 12/2023) without neurological deficits, and prior uterine tumor around
kidney s/p radical hysterectomy (2013), who presented to ED via EMS due to acute onset of lightheadedness, dizziness, double vision, diaphoresis, nausea and mild GERALDINE with jaw pain. Upon ED arrival she was found to have inferior ST elevation in
which she ruled-in as STEMI alert. She was emergently taken for LHC (10/24/24) with Dr. Chambers which showed severe multi-vessel CAD with 95% pRCA (culprit lesion); LITTLE placed to pRCA with plan for ASA/Ticagrelor for 30-days. Cardiac Surgery was
consulted for consultation for evaluation of multivessel CAD.
Past Medical History
Past Medical History: CAD, IDDM, Psychiatric (Depression) and Other
orthostatic hypotension, head trauma (2021) with chronic right frontal love lesion on CT (12/2023) and no neurological defecits
Past Surgical History
Past Surgical History: Hysterectomy (due to prior uterine tumor around kidney) and Other
benign breast lumpectomy (1978), ROHAN/BSO (2013)
Family History
Mother: at Age
Father: at Age and Cause of (CAD)
Family Medical History: CAD
Social History
Alcohol: None
Drug: None
Tobacco: Former Smoker
Allergies
Allergy/AdvReac Type Severity Reaction Status Date / Time
No Known Allergies Allergy Verified 03/27/18 13:50
Home Medications
�Medication �Instructions �Recorded �Confirmed �Type
metformin 500 mg tablet 500 mg PO BID@0800,1700 Diabetes 12/26/23 10/24/24 Rx
#60 tabs
duloxetine 30 mg capsule,delayed 30 mg PO DAILY 10/24/24 10/24/24 History
release (Cymbalta)
insulin glargine 100 unit/mL (3 12 unit SC HS 10/24/24 10/24/24 History
mL) subcutaneous pen (Lantus
Solostar U-100 Insulin)
insulin lispro 100 unit/mL 6 unit SC AC 10/24/24 10/24/24 History
subcutaneous pen (Humalog KwikPen
(U-100) Insulin)
midodrine 2.5 mg tablet 2.5 mg PO TID 10/24/24 10/24/24 History
Review of Systems
-
History Source: Patient
General: Reports No Symptoms
HEENT: Reports No Symptoms
Respiratory: Reports No Symptoms
Cardiac: Reports No Symptoms
Abdomen/GI: Reports No Symptoms
: Reports No Symptoms
Musculoskeletal: Reports No Symptoms
Skin: Reports No Symptoms
Neurological: Reports CVA (Hx of head trauma 12/2023), Headaches and Numbness (chronic diabetic neuropathy)
Vascular: Reports No Symptoms
Physical Exam
Vital Signs
Temp 98.7 F 10/25/24 07:26
Temp route: Oral 10/25/24 07:26
Pulse 81 10/25/24 04:00
Rhythm: Normal sinus rhythm 10/24/24 20:00
Resp Rate 20 10/25/24 07:26
Blood pressure 153/89 10/25/24 03:16
Blood pressure extremity used: Right upper arm 10/25/24 07:26
Position: Lying 10/25/24 07:26
MAP (cuff-Myra Monitor) 108 10/25/24 03:16
SaO2 97 10/25/24 07:26
Oxygen Mode of Delivery Room air 10/25/24 07:26
Can the patient verbally communicate their pain? Yes 10/25/24 05:00
Pain scale rating: Asleep 10/25/24 05:00
Actual Weight 73.9 kg 10/25/24 03:11
Body Mass Index (BMI) 27.1 10/25/24 03:11
Supine- Blood Pressure 116/67 10/25/24 08:08
Supine- Pulse 69 10/25/24 08:08
Sitting- Blood Pressure 119/67 10/25/24 08:08
Sitting- Pulse 65 10/25/24 08:08
Standing- Blood Pressure 106/55 10/25/24 08:08
Blood pressure extremity used: Left upper arm 10/25/24 08:08
Mode BP taken: Automatic 10/25/24 08:08
Labs
10/25/24 03:44
10/25/24 03:44
PT 13.2 Sec (11.4-14.6) 10/24/24 16:38
Hemoglobin A1c 9.5 % (4.0-5.6) H 10/25/24 03:44
Troponin I 22.700 ng/ml H* D 10/25/24 03:44
Exam
General: Well Developed, Well Nourished and No Apparent Distress
HEENT: Normocephalic, Atraumatic, PERRLA and EOMI
Respiratory: Clear
Cardiac: S1/S2, Regular Rhythm and Murmur
GI: Soft, Non Tender, Non Distended and Normal Bowel Sounds
Skin: Warm and Dry
Neuro: Awake, Alert, AO x 3 and No Motor Deficits
Extremities: Pulses (+2 DP/PT/Radial B/L)
Psych: Calm
Assessment / Plan
-
#CAD s/p Inferior STEMI
- Multivessel CAD s/p LITTLE to culprit pRCA (10/24/24)
- Con't Brillinta, ASA, BB, Lipitor
- Troponin's trending to peak 0.5 > 13.6 > 22.7 > pending
- Plan to repeat TTE today, pending.
- PMHx of orthostasis and midodrine
- BP monitored with addition of ACEi/BB
- Plan to follow-up with Dr. Espitia as outpatient for CABG consultation
#IDDM
- Hgb A1C 13.1% (12/2023), now 9.5%
- Diabetic MANAGER UROLOGY consulted during admission
- Follow-up with outpatient provider for further management
#HLD
- Not on outpatient management
- Lipid panel - Trig 230, Chol 244, LDL 150, VLDL 46, HLD 48
- High-intensity statin initiated by cardiology
#Orthostatic Hypotension
- on Midodrine 2.5 TID as outpatient
- Monitor BP with initiation of GDMT for STEMI (BB/ACEi)
#Head Trama/Chronic Frontal lobe lesion
- CT Head (12/2023): no significant narrowing identified involving intracranial circulation; no evidence of intracranial aneurysm; chronic R frontal lobe lesion
- CT Neck (12/2023): No significant narrowing involving common carotid arteries, carotic bulbs, or proximal internal carotid arteries B/L
--- NOTE | 2024-10-25 10:11 | CM ---
Addendum entered by Marcia Chong RN 10/25/24 12:25:
Patient is agreeable to cost
Original Note:
Pricing on Brilinta under the patient's prescription plan, [employer] [id number], is covered at $47 for a 30 day.
Farxiga is covered at $293 for a 30 day supply. It is a tier 4, so the patient has a 50% coinsurance.
Jardiance is covered at $47 for a 30 day supply. I will place a free 30 day in the patient's red discharge folder.
--- NOTE | 2024-10-25 10:23 | PTCARENOTE ---
assumed care at 0745. Patient complaints of dizziness with waking this am. VSS. Did have a 13 beat run of VT at 0759. Orthostatic vitals obtained and normal. Notified Velia Bains, orders received. Symptoms now resolved. NSR HR 73 Assisted to the
bathroom, no lightheadedness. Voided 450 of yellow urine, brushed teeth and assisted to chair. Call ramírez in reach
--- NOTE | 2024-10-25 11:21 | W.PN.UPDATE ---
Update Note
Progress Note Update
Per CM, Lai can be at her pharmacy tomorrow if sent in today. I have sent it in to pharmacy electronically as such. Otherwise, Farxiga (which was started today) will be $293 per month, but Jardiance $47 per month, so likely adjust at d/c (not
on formulary here).
--- NOTE | 2024-10-25 12:26 | CM ---
Chart reviewed. Patient is independent of ADLS, lives alone in a 2 [address], 1 JACKIE, 0 DME. Plan is for the patient to return home. CM to follow
[2024-10-25 12:29] LABS: Glucose - Point of Care 193 mg/dl (70-99)
[2024-10-25] MEDS: NOVOLOG FLEXPEN-MODERATE RESISTANCE 1 UNITS SC (12:29)
[2024-10-25 17:10] LABS: Glucose - Point of Care 219 mg/dl (70-99)
[2024-10-25] MEDS: NOVOLOG FLEXPEN-MODERATE RESISTANCE 3 UNITS SC (17:39)
[2024-10-25] MEDS: LOVENOX 40 MG SC (17:40)
[2024-10-25] MEDS: LIPITOR 80 MG PO (17:40)
[2024-10-25 21:31] LABS: Glucose - Point of Care 242 mg/dl (70-99)
[2024-10-25] MEDS: LANTUS 0.12 UNITS SC (21:31)
[2024-10-25] MEDS: CYMBALTA DELAYED RELEASE 30 MG PO (21:31)
[2024-10-26 04:16] VITALS: BP 126/68
[2024-10-26 05:38] VITALS: BMI 26.8
--- NOTE | 2024-10-26 06:07 | PTCARENOTE ---
Pt. had no complaints of chest discomfort or dizziness overnight. VSS, NSR on the monitor. Right radial cath site dressing intact and assessment WNL. Pt. slept most of the night.
[2024-10-26 06:19] LABS: Hematocrit 32.9 % (37.0-47.0); Hemoglobin 11.2 g/dL (12.0-16.0); Mean Corpuscular Hgb 28.4 pg (27.0-31.0); Mean Corpuscular Volume 83.3 fL (81.0-99.0); Mean Platelet Volume 11.2 fL (7.4-10.4); Platelet Count 153 10^3/uL (130-400); Red Blood Cell Count 3.95 10^6/uL (4.20-5.40); Red Cell Dist. Width 13.1 % (11.5-14.5); White Blood Cell Count 7.1 10^3/uL (4.8-10.8)
[2024-10-26 06:45] LABS: Blood Urea Nitrogen 21 mg/dl (7-17); Calcium 9.4 mg/dl (8.4-10.2); Carbon Dioxide 27 mmol/L (22-30); Chloride 110 mmol/L (98-107); Estimated Creatinine Clearance 55 ml/min; Glucose 167 mg/dl (70-99); Potassium 4.1 mmol/L (3.5-5.1); Sodium 142 mmol/L (135-145); eGFR > 60.00
[2024-10-26 07:39] VITALS: BP 136/75
[2024-10-26] MEDS: TOPROL XL 12.5 MG PO (08:14)
[2024-10-26] MEDS: BRILINTA 90 MG PO (08:14)
[2024-10-26] MEDS: FARXIGA 10 MG PO (08:14)
[2024-10-26] MEDS: LOW STRENGTH ASPIRIN 81 MG PO (08:14)
--- NOTE | 2024-10-26 08:14 | W.PN.CD ---
Today's Communication / Plan
-
Maintain all current therapy.
Confirm surgical plan.
If plan established and preoperative testing completed, she can be discharged.
Impression / Plan
-
Impression/Plan: 69 y/o female with PMH HLD, IDDM, orthostatic hypotension, prior head trauma (fell off horse 2021) with chronic right frontal lobe lesion noted on CT (12/2023) with no neurological deficits, prior uterine tumor around kidney with
radical hysterectomy (around 2013), FH sig for Father with CAD/[place]/CVA, prior tobacco abuse admitted with inferior STEMI.
#Inferior STEMI/CAD
-Acute, resolved.
-Cardiac catheterization showed severe, multivessel CAD with a 95% culprit pRCA lesion, now s/p PCI (Medtronic [place] 3.5 x 26 LITTLE, post dilated with 3.5 NCB) with reduction in stenosis to 0%, restoring ALEX III flow.
-Troponin peaked at 22.7.
-DAPT with aspirin and ticagrelor for at least 30 days. After 30 days, we will hold ticagrelor and allow for 5 days of washout with intention to return for CABG.
-CT surgery consult, planning CABG.
-High dose, high potency statin.
-It is concerning that she NEVER had chest pain (lightheadedness/nausea). She may have impaired anginal warning (diabetic neuropathy?).
-OMT/GDMT as hemodynamics will tolerate.
#ICMO/HFmEF
-Acute.
-LVEF 40-45% with inferior hypokinesis on LV gram, 55% with inferior hypokinesis on TTE.
-Continue GDMT with dapagliflozin 10 mg daily and metoprolol succinate 12.5 mg daily.
#IDDM
-Chronic, uncontrolled.
-HgbA1C was 13.1% in December 2023.
-Repeat HbA1c pending.
-Insulin sliding scale and consult Diabetic VP HOME HEALTH for management.
-Given CAD, she would benefit from GLP-1 agonist at discharge.
#HLD
-Chronic, uncontrolled.
-Total cholesterol = 244, LDL = 150, HDL = 46, Triglycerides = 230.
-Atorvastatin 80 mg daily.
-Goal LDL < 55.
#Hypertension/Orthostatic Hypotension
-Chronic, stable.
-Not currently requiring midodrine 2.5mg TID.
-Caution as we add GDMT/OMT.
#Head trauma/chronic frontal lobe lesion- stable with no neurological deficits
#PPx
-SCDs for DVT/VTE.
-No current role for PPI.
#Dispo
-IVU status.
-Full code.
-Patient stable discharge as long as CT surgery has all required testing and surgical plan has been established.
PCP: [facility] (Fadumo Reyez MD listed as last PCP)
CDY: Juan Manuel Castro MD
Subjective/Interval History:
Echo shows preserved LVEF with inferior hypokinesis.
BP stable on metoprolol and midodrine.
Feels well.
DATA:
Cardiac Catheterization/PCI, 10/24/2024:
CONCLUSIONS
1. Right dominant circulation with a 90% lesion in the proximal LAD, proximal to the origin of a large diagonal, a 70% lesion in the mid LAD immediately distal to the origin of the large diagonal, a 70% lesion in the origin of OM1, a 40% lesion in
the mid RCA, along 70% lesion in the distal RCA before the origin of the RPDA, and 80% lesion in the midportion of the large posterolateral branch and a culprit, 95% lesion in the proximal RCA with ALEX II flow, status post successful PCI (Medtronic
[place] 3.5 x 26 LITTLE, postdilated with a 3.5 NC balloon) with reduction in stenosis to 0%, restoring ALEX-3 flow.
2. Severely elevated filling pressure (LVEDP = 25 mmHg at 76.0 kg).
3. Normal left ventricular size with severe hypokinesis/akinesis of the inferior wall and mildly reduced left ventricular systolic function (LVEF estimated at 40-45%).
TTE, 10/25/2024:
CONCLUSIONS
Preserved left ventricular function with estimated ejection fraction 55%
Basal inferior hypokinesisMild mitral regurgitation.
Trace aortic regurgitation.
Trace tricuspid regurgitation.
Compared to the previous study 03/13/2024 basal inferior hypokinesis is reported
Physical Exam
Vital Signs/Labs
Vital Signs
Temp Pulse Resp BP Pulse Ox
37.0 C 74 20 126/68 98
10/26/24 07:39 10/26/24 06:00 10/26/24 07:39 10/26/24 04:16 10/26/24 07:39
10/24/24 10/25/24 10/26/24
11:59 11:59 11:59
Actual Weight 73.9 kg 73 kg
10/26/24 05:53
10/26/24 05:53
PT 13.2 Sec (11.4-14.6) 10/24/24 16:38
INR 0.95 10/24/24 16:38
Magnesium 2.0 mg/dl (1.6-2.3) 10/26/24 05:53
Triglycerides 230 mg/dl (10-149) H 10/25/24 03:44
LDL Cholesterol, Calc 150 mg/dl 10/25/24 03:44
VLDL Cholesterol, Calc 46 mg/dl (0-30) H 10/25/24 03:44
HDL Cholesterol 48 mg/dl 10/25/24 03:44
LAB Results
10/24/24 10/24/24 10/25/24
16:37 22:14 03:44
Troponin I 0.568 H* 13.600 H* D 22.700 H* D
10/25/24
11:58
Troponin I 16.800 H*
Physical Exam
Constitutional: No acute distress and Comfortable
EENT: Anicteric and Moist mucous membranes
Cardiovascular: Rhythm & rate is regular, Pedal edema is absent, JVD pressure is normal, S1S2 is normal and Murmur/rub/gallop absent
Respiratory: Respiratory effort normal, Lungs clear to auscul., Wheeze Absent, Crackles Absent and Rhonchi Absent
GI: Soft, Distention absent, Flat, Non tender and Normal bowel sounds
Neuro/Psych: AO x 3
Other: Cath Site (Right radial access site is C/D/I.)
Data Reviewed
-
Date of Service: October 26, 2024
Medical Decision Making: Reviewed Test Results, Independent Historian Assessment and Test Interpretation
EKG: Tracing Personally Visualized and interpreted and Report Reviewed by me
Echo: Tracing Personally Visualized and interpreted and Report Reviewed by me
X-Ray/CT/US/MRI/NUC/PET: Image Personally Visualized and interpreted and Report Reviewed by me
Medical Tests (PFT, Pathology etc): Image Personally Visualized and interpreted, Report Reviewed by me, Discussed with Physician, Discussed with Patient and Discussed with Family
Labs: Labs Reviewed by me
Old Records: Reviewed
[2024-10-26] MEDS: ProAmatine 2.5 MG PO ×2 (08:21→12:32)
[2024-10-26] MEDS: NOVOLOG FLEXPEN-MODERATE RESISTANCE SC (08:25)
[2024-10-26 08:28] LABS: Glucose - Point of Care 145 mg/dl (70-99)
--- NOTE | 2024-10-26 10:25 | W.DS.TRANS ---
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
-
Discharge Instructions:
Discharge Diagnosis/Procedures STEMI, Angioplasty with stent to RCA
Diet Low Cholesterol,Diabetic, Carb Controlled
Driving Restrictions No driving for 24 hours
Other Services Cardiac Rehab
Instructions:
Stand-Alone Forms: DC Instructions- Cath/EP Lab
Changes to Home Medications: Yes
Discharge Medications:
DC Medications w/original date entered in [employer]
metformin 500 mg tablet 500 mg PO BID@0800,1700 Diabetes #60 tabs 12/26/23
duloxetine 30 mg capsule,delayed release (Cymbalta) 30 mg PO DAILY 10/24/24
insulin glargine 100 unit/mL (3 mL) subcutaneous pen (Lantus Solostar U-100 Insulin) 12 unit SC HS 10/24/24
insulin lispro 100 unit/mL subcutaneous pen (Humalog KwikPen (U-100) Insulin) 6 unit SC AC 10/24/24
midodrine 2.5 mg tablet 2.5 mg PO TID 10/24/24
ticagrelor 90 mg tablet (Brilinta) 90 mg PO BID #60 tabs 10/25/24
aspirin 81 mg chewable tablet 81 mg PO DAILY #1 tab 10/26/24
atorvastatin 80 mg tablet 80 mg PO QPM #90 tabs 10/26/24
empagliflozin 10 mg tablet (Jardiance) 10 mg PO DAILY #30 tabs 10/26/24
metoprolol succinate 25 mg tablet,extended release 24 hr 12.5 mg (1/2 x 25 mg) PO DAILY #90 tabs 10/26/24
Home Medication Changes
new to asa, brilinta, metoprolol, empagliflozin, atorvastatin
Pending Results: Yes
Additional Pending Results:
CT surgery testing
[2024-10-26] MEDS: TYLENOL 650 MG PO (10:56)
--- NOTE | 2024-10-26 11:25 | CM ---
Confirmed Lai's availability and it is ready for pickup at [facility].
[2024-10-26 12:11] LABS: Glucose - Point of Care 193 mg/dl (70-99)
--- NOTE | 2024-10-26 12:17 | W.PN.UPDATE ---
Update Note
Progress Note Update
Patient pre-surgical scans were completed inpatient. She will follow up with Dr. Espitia on 11/13. The remainder of her pre-admission testing will be done on 11/21. The patient was informed that due to the stent she will be on her brilinta for 30 days
and then it will be held for surgical intervention next month. She expressed understanding.
[2024-10-26] MEDS: NOVOLOG FLEXPEN-MODERATE RESISTANCE 1 UNITS SC (12:23)
[2024-10-26 12:45] LABS: Hepatitis B Surface Antigen Negative (Negative)
[2024-10-26 13:03] LABS: Hepatitis A Antibody, Total Positive (Negative); Hepatitis B Core Ab, Total Negative (Negative); Hepatitis B Surface Antibody Negative
--- NOTE | 2024-10-26 13:29 | PTCARENOTE ---
Pt received this am with no c/o of any chest pain or sob. Right radial site dressing dry and intact with no hematoma. Pt discharged to home with her friend. Discharge instructions given and reviewed with good understanding and all questions
answered.
== END 2024-10-26 14:00 | disposition home or self-care (01) | DRG 321 ==
LOC: IVU 18:17
PROVIDERS: Nurse Practitioner; Physician Assistant Medical; ADMITTING PHYSICIAN Internal Medicine Cardiovascular Disease; EMERGENCY PHYSICIAN Emergency Medicine
PROC: 4A023N7 Measurement of Cardiac Sampling and Pressure, Left Heart, Percutaneous Approach (ICD-10-PCS; 2024-10-24)
PROC: B2151ZZ Fluoroscopy of Left Heart using Low Osmolar Contrast (ICD-10-PCS; 2024-10-24)
PROC: 027034Z Dilation of Coronary Artery, One Artery with Drug-eluting Intraluminal Device, Percutaneous Approach (ICD-10-PCS; 2024-10-24)
PROC: B2111ZZ Fluoroscopy of Multiple Coronary Arteries using Low Osmolar Contrast (ICD-10-PCS; 2024-10-24)
DX: I21.19 ST elevation (STEMI) myocardial infarction involving other coronary artery of inferior wall (principal); I50.21 Acute systolic (congestive) heart failure; E11.65 Type 2 diabetes mellitus with hyperglycemia; F32.A Depression, unspecified; I25.5 Ischemic cardiomyopathy; I11.0 Hypertensive heart disease with heart failure; E78.00 Pure hypercholesterolemia, unspecified; I95.1 Orthostatic hypotension; Z60.2 Problems related to living alone; Z79.4 Long term (current) use of insulin; Z90.710 Acquired absence of both cervix and uterus; Z87.828 Personal history of other (healed) physical injury and trauma; Z82.49 Family history of ischemic heart disease and other diseases of the circulatory system; Z82.3 Family history of stroke; Z87.891 Personal history of nicotine dependence; Z79.84 Long term (current) use of oral hypoglycemic drugs
CPT/HCPCS: 71250; 80048; 80053; 80061; 82010; 82962; 83036; 83735; 84484; 85025; 85027; 85347; 85610; 86704; 86706; 86708; 87340; 93005; 93306; 93458; 93880; 93923; 93931; 99152; 99153; 99285; C1725; C1874; C1887; C1894; C9606; Q9967

== ENCOUNTER 2024-11-07 17:11 | Observation (INO) | payer MEDICARE, OTHER, SELFPAY ==
[2024-11-07] VITALS (9 sets, daily range): BP systolic 106–186; BP diastolic 62–85; BMI 25.9
--- NOTE | 2024-11-07 11:49 | ED.GENMED ---
History of Present Illness
General
Chief Complaint: Chest Pain
Source: patient
Time Seen by Provider: 11/07/24 11:43
History of Present Illness
History of Present Illness:
69-year-old female who presents with upper back discomfort. She states this sort of feels like a muscle fatigue across her shoulder blades and down her upper back. The patient states reprise had the symptoms for some time but after her cardiac
catheterization recently she felt much improved. Patient states however on Tuesday symptoms came back. She states with any exertion she gets the symptoms. She is scheduled for CABG but they wanted to wait 30 days after her recent stent placed in
the RCA. Cardiac catheterization was reviewed by me. The culprit lesion was stented but she did have continued disease that was going to be treated with CABG. The patient has no symptoms currently laying in bed.
Past History
Past History
ED Past Medical History: CAD, HTN, IDDM and IN
ED Past Surgical History: Gynecological (Total hysterectomy December 2013)
Social History
Tobacco: Non-smoker
Alcohol: None
Drug: None
Living: with family
Employment: Employed
Family History
Family History: Other (Noncontributory)
Phy Exam
Physical Exam
Physical Exam:
CONSTITUTIONAL Patient alert and oriented to person, place and time. Well-appearing. Vital signs reviewed.
HEAD atraumatic, normocephalic.
EYES eyelids normal to inspection, Extraocular muscles intact, Conjunctiva normal, Sclera normal.
NECK normal range of motion, Trachea midline, no jugular venous distention.
RESPIRATORY CHEST No respiratory distress noted, Chest expansion equal, Bilateral breath sounds clear.
CARDIOVASCULAR regular rate and rhythm, Heart sounds normal.
ABDOMEN abdomen nontender, Bowel sounds normal. No distention.
BACK normal inspection, no obvious deformities
UPPER EXTREMITY range of motion normal, Motor strength normal, no cyanosis, no edema.
LOWER EXTREMITY range of motion normal, Motor strength normal, no cyanosis, no edema.
NEURO Speech normal, No focal motor deficits, Mcdaniel coma scale 15, Memory normal, Cranial Nerves intact to screening exam.
SKIN skin warm, dry, and normal in color.
Scores
Heart Score for Chest Pain Patients
STEMI patient?: No
History: Moderately Suspicious
ECG: Nonspecific Repolarization
Age: >/= 65 years
Risk Factors: >/= 3 Risk Factors or History of CAD
Troponin: >1 - <3 x Normal Limit
Heart Score for Chest Pain Patients: 7
Heart Score Risk: 72.7 % MACE over next 6 weeks
Course
Orders/Labs/Results
Orders:
Orders
11/07/24 Lunch
1800 calorie (15 carb) Diabetic
At Your Request: Limited Participation
11/07/24 11:41
Electrocardiogram (*1) Urgent
Reason for Study: Chest Pain
11/07/24 11:42
EKG- Treatment ONCE
11/07/24 11:51
Complete Blood Count/With Diff Urgent
Comprehensive Metabolic Panel Urgent
PT/INR [Prothrombin Time] Urgent
Troponin I Urgent
11/07/24 16:57
Admit/Transfer Patient As Directed
Co-Sign Provider:
Level of Care: Observation services
Assign to:: Telemetry
Physician / Group: santacruz/hospitalist
Diagnosis: angina
Reason for Telemetry: Chest Pain syndromes
Date to Stop Telemetry: 11/09/24
Time to Stop Telemetry: 11:00
11/07/24 16:58
PRN Pain Medication Management As Directed
May give lesser potent ordered pain med per pt: Yes
preference::
Protocol:: Medication orders for pain may be administered in a
manner that supports deferring to patient preference
when the pt is:
- Requesting an ordered lesser potent pain medication.
Least to most potent pain medications are defined
as: acetaminophen < NSAID < tramadol < opioids
(morphine, oxycodone, hydromorphone).
- Requesting a lesser dose of the same medication IF
ORDERED.
- Requesting a less intrusive route of administration
if both routes are prescribed by the provider (PO <
IV).
11/07/24 16:59
Code Status As Directed
Resuscitation Status: Full Code
11/07/24 17:00
ISOSORBIDE MONOnitrate ER [Imdur (Extended Release)] 30 mg PO DAILY
Metoprolol Xl [Toprol Xl] 25 mg PO DAILY
11/07/24 17:03
Metoprolol Xl [Toprol Xl] 50 mg .ROUTE .STK-MED ONE
11/07/24 17:06
ISOSORBIDE MONOnitrate ER [Imdur (Extended Release)] 30 mg PO NOW STA
11/07/24 17:07
Metoprolol Xl [Toprol Xl] 25 mg PO NOW STA
11/07/24 17:08
CR Chest - 2 Views Urgent
Comment:
Reason For Exam: upper back pain. dry cough w/eating
11/07/24 17:50
Acetaminophen [Tylenol] 650 mg PO Q4HPRN PRN
Bisacodyl [Dulcolax] 10 mg RECTAL [id number] PRN
Dextrose 50%-Water [Dextrose 50% Syringe] 12.5 grams IV [id number] PRN
Docusate W/Senna [Senokot-S] 1 tablet PO BIDPRN PRN
Glucagon [GlucaGen] 1 mg IM PRN PRN
Morphine Sulfate 1 mg IV Q4HPRN PRN
Polyethylene Glycol Powder [Miralax] 17 grams PO DAILYPRN PRN
Tramadol HCl [Ultram] 50 mg PO Q6HPRN PRN
11/07/24 17:50
Activity As Directed
Activity Level: Out of Bed-Early Mobility
Bedside Glucose Monitoring As Directed
Frequency: AC&HS
Additional Instructions:: Change to q6h if pt on TPN, tube feeding or not eating
Vital Signs As Directed
Frequency: Per unit guidelines
Speech Therapy Eval & Treat Routine
DX Deep Vein Thrombosis Video Routine
11/07/24 18:00
Enoxaparin Sodium [Lovenox] 40 mg SC QPM
11/07/24 18:26
Troponin I Q6H
11/07/24 20:00
Famotidine [Pepcid] 20 mg PO DAILY
Ticagrelor [Brilinta] 90 mg PO BID
11/07/24 22:00
Atorvastatin [Lipitor] 80 mg PO HS
Duloxetine Delayed Release [Cymbalta Delayed Release] 30 mg PO HS
Insulin Glargine Lantus [Lantus] 12 units Subcutaneous Insulin Syringe [Syringe-Insulin] 0 unit SC HS
11/08/24 07:11
Basic Metabolic Panel IN AM
Troponin I Q6H
11/08/24 07:30
Insulin Aspart Corrective Low [Novolog Flexpen-Low Resistance] See Protocol SC AC
Insulin Aspart Pen [Novolog Flexpen] 6 units SC AC
11/08/24 08:00
Aspirin Chewable [Low Strength Aspirin] 81 mg PO DAILY
11/08/24 11:43
Troponin I Q6H
11/08/24 18:00
Dapagliflozin [Farxiga] 10 mg PO QPM
11/09/24 07:15
Basic Metabolic Panel IN AM
11/09/24 11:00
DC Protocol for Telemetry ONCE
Abnormal Lab Results
11/07/24
11:51
MPV 10.6 H fL
(7.4-10.4)
Absolute Monos (auto) 0.9 H 10^3/uL
(0.1-0.6)
Monocytes % 11.3 H %
(1.7-9.3)
Chloride 109 H mmol/L
(98-107)
Carbon Dioxide 20 L mmol/L
(22-30)
BUN 29 H mg/dl
(7-17)
Glucose 230 H mg/dl
(70-99)
11/07/24 11:51
11/07/24 11:51
Vital Signs
Initial and Last Documented VS:
Initial Vital Signs
Temp Pulse Resp BP Pulse Ox
98.1 F 79 18 156/76 98
11/07/24 11:32 11/07/24 11:32 11/07/24 11:32 11/07/24 11:32 11/07/24 11:32
Last Documented Vital Signs
Temp Pulse Resp BP Pulse Ox
98.7 F 74 16 138/66 97
11/09/24 11:18 11/09/24 11:18 11/09/24 11:18 11/09/24 11:18 11/09/24 11:18
MDM/Problems Addressed
Differential Diagnosis Includes:
Unstable angina, aortic dissection, musculoskeletal causes.
*Pulse Oximetry
Patient hypoxic: no
*EKG
Interpreted by ED Provider?: Yes
Interpretation: abnormal
Rate: normal
Rhythm: sinus
Ischemia: T-wave inversion (T wave noted in inferior lateral leads)
*Java User Interface Developer Interpretation
Rate: normal
Interpretation: normal
Rhythm: sinus
*Critical Care Note
Total Time (30-74mins, 75-104mins- exclusive of procedures): Not Applicable
Data Reviewed
Review of Other/Old Records Reveals: Operative Reports (Cardiac catheterization report reviewed from October 2024 revealing RCA disease)
Prescriptions/Medications Considered But Not Given:
Considered heparin but patient is pain-free at this time
Patient Management
Discussion with other providers: Manager Front Office (Case discussed with Dr. Reynaga)
Escalation/DeEscalation of care consider admission/obs:
Certainly concerning in light of her recent stent and persistent disease that she has symptoms. Currently at rest she has no further symptoms but her EKG is different from her discharge EKG. Seen by the resident thus far and awaiting cardiology
consultation
ED Attending Note
-
Portions of this chart may have been created with voice recognition software.� Occasional wrong word or��sound alike� substitutions may have occurred due to the inherent limitations of voice recognition software.
Discharge Plan
Departure
Patient Disposition: Admit
Date of Disposition: 11/07/24
Time of Disposition: 13:34
Admit to: Telemetry
Presentation/result/management discussed w/ accepting MD/DO: Hospitalist
Patient with high blood pressure during this ER visit?: No
Condition: Good
Covid-19: Not Applicable
Discharge Problem:
Unstable angina
Interventions
Interventions:
*Risk Screen - Suicide Last Done: 11/07/24 11:32
*General Assessment Last Done: 11/07/24 11:32
*Neglect/Abuse Screening Last Done: 11/07/24 11:32
*ED- Fall Risk Assessment Last Done: 11/07/24 11:32
*ED COVID-19 Vaccine History Last Done: 11/07/24 11:32
*Nursing Disposition Last Done: 11/07/24 17:47
ED- Cardiac Assessment Last Done: 11/07/24 11:40
Discharge Date and Time
Discharge Date/Time: 11/07/24 18:00
[2024-11-07 12:07] LABS: % Basophils 0.5 % (0-2); % Eosinophils 5.3 % (0-6); % Immature Granulocytes 0.1 % (0-0.5); % Lymphocytes 27.5 % (20.5-51.1); % Monocytes 11.3 % (1.7-9.3); % Neutrophils 55.3 % (42.2-75.2); Absolute Eosinophils 0.4 10^3/uL (0-0.7); Absolute Lymphocytes 2.1 10^3/uL (1.2-3.4); Absolute Monocytes 0.9 10^3/uL (0.1-0.6); Absolute Neutrophils 4.2 10^3/uL (1.4-6.5); Hematocrit 38.2 % (37.0-47.0); Mean Corpuscular Hgb 28.4 pg (27.0-31.0); Mean Corpuscular Volume 83.4 fL (81.0-99.0); Mean Platelet Volume 10.6 fL (7.4-10.4); Nucleated Red Blood Cells % 0 %; Platelet Count 216 10^3/uL (130-400); Red Blood Cell Count 4.58 10^6/uL (4.20-5.40); Red Cell Dist. Width 13.1 % (11.5-14.5); White Blood Cell Count 7.7 10^3/uL (4.8-10.8)
[2024-11-07 12:19] LABS: INR 1.01; PT 13.8 Sec (11.4-14.6)
[2024-11-07 12:34] LABS: ALT (SGPT) 33 U/L (0-35); AST (SGOT) 25 U/L (14-36); Albumin 4.8 g/dl (3.5-5.0); Alkaline Phosphatase 98 U/L (38-126); Blood Urea Nitrogen 29 mg/dl (7-17); Calcium 9.6 mg/dl (8.4-10.2); Carbon Dioxide 20 mmol/L (22-30); Chloride 109 mmol/L (98-107); Glucose 230 mg/dl (70-99); Potassium 4.8 mmol/L (3.5-5.1); Sodium 142 mmol/L (135-145); Total Bilirubin 0.9 mg/dl (0.2-1.3); Total Protein 7.8 g/dl (6.3-8.2); eGFR > 60.00
[2024-11-07 12:36] LABS: Troponin I 0.019 ng/ml
--- NOTE | 2024-11-07 12:48 | CON.CAR ---
Consultation
Consultation Request
Date/Time Consultation Requested: 11-07-24
Date/Time Consultation Performed: 11-07-24
Requesting Provider: Dr. Omkar Thakur
Performing Provider:
Reason for Consultation: upper back 'muscle fatigue', similar to her previous STEMI-pains
Medical History
-
Chief Complaint: chest pain
History of Present Illness:
PCP: Fadumo Reyez MD; [facility]
CDY: Juan Manuel Castro MD
Jennifer Kurtz, 69-year-old female with a recent medical history significant for acute inferior STEMI s/p proximal RCA stenting and multivessel disease (residual proximal left anterior descending diagonal and circumflex stenosis) pending bypass
evaluation, presents to the hospital with pain she describes to be similar to how she felt leading up to her recent STEMI. Hospitalized 2 weeks ago when she was found to have severe multivessel CAD with a 95% culprit proximal RCA lesion causing
STEMI, which was stented with one drug-eluting stent on 10-24-24. She was discharged home on dual antiplatelet therapy with aspirin and ticagrelor for at least 30 days prior to potential bypass surgery; has an outpatient consultation with CT surgery
on 11-13-24.
She was feeling good following discharge, and able to ambulate well/talk walks without symptoms/resume her daily activities. She started experiencing 'muscle fatigue' of her upper back about 1 week after discharge; she mentions experiencing similar
'muscle fatigue' leading up to the STEMI. Interestingly, she denies having experienced any chest pain during her STEMI, and only had the aforementioned 'upper back muscle fatigue'. The 'muscle fatigue' got worse two days ago; she was unable to walk
more than a couple of blocks before needing to sit down. Yesterday, she felt similarly after coming down-stairs to her living room and spent most of her time on the couch because of the 'fatigue'. She continued to experience the same today, and
decided to come in for an evaluation. She took aspirin this morning but not the ticagrelor. Denies shortness of breath, chest pain/pressure/tightness, jaw or arm pain, lightheadedness/dizziness, nausea, vomiting, epigastric pain, headaches or
palpitations.
Medical history is otherwise significant for poorly controlled DM2, hyperlipidemia and orthostatic hypotension.
Past Medical History
Past Medical History: Cancer (Uterine tumor (2013)), Hypercholesterolemia, IDDM, Psychiatric (depression) and Other (orthostatic hypotension)
Past Surgical History: Gynecological (ROHAN/BSO (2013), benign breast lump removed (1978))
Social History
Tobacco: Former Smoker
Alcohol: None
Drug: None
Family History
Family History: CAD (Father- OR/CAD, CVA)
Allergies / Home Medications
Allergy/AdvReac Type Severity Reaction Status Date / Time
No Known Allergies Allergy Verified 11/07/24 11:35
�Medication �Instructions �Recorded �Confirmed �Type
metformin 500 mg tablet 500 mg PO BID@0800,1700 Diabetes 12/26/23 10/24/24 Rx
#60 tabs
duloxetine 30 mg capsule,delayed 30 mg PO DAILY 10/24/24 10/24/24 History
release (Cymbalta)
insulin glargine 100 unit/mL (3 12 unit SC HS 10/24/24 10/24/24 History
mL) subcutaneous pen (Lantus
Solostar U-100 Insulin)
insulin lispro 100 unit/mL 6 unit SC AC 10/24/24 10/24/24 History
subcutaneous pen (Humalog KwikPen
(U-100) Insulin)
midodrine 2.5 mg tablet 2.5 mg PO TID 10/24/24 10/24/24 History
ticagrelor 90 mg tablet (Brilinta) 90 mg PO BID #60 tabs 10/25/24 Rx
aspirin 81 mg chewable tablet 81 mg PO DAILY #1 tab 10/26/24 Rx
atorvastatin 80 mg tablet 80 mg PO QPM #90 tabs 10/26/24 Rx
empagliflozin 10 mg tablet 10 mg PO DAILY #30 tabs 10/26/24 Rx
(Jardiance)
metoprolol succinate 25 mg 12.5 mg (1/2 x 25 mg) PO DAILY #90 10/26/24 Rx
tablet,extended release 24 hr tabs
Review of Systems
-
History Source: Patient
All other systems: Negative unless noted
Constitutional: Fatigue
Respiratory: No Symptoms
Cardiac: Other (per HPI)
Abdomen/GI: No Symptoms
Neurological: No Symptoms
Physical Exam
Vital Signs
Temp Pulse Resp BP Pulse Ox
98.1 F 79 18 156/76 98
11/07/24 11:32 11/07/24 11:32 11/07/24 11:32 11/07/24 11:32 11/07/24 11:32
Lab Results
11/07/24 11:51
11/07/24 11:51
Troponin I 0.019 ng/ml 11/07/24 11:51
Physical Exam
General: No Apparent Distress and Comfortable
HEENT: Normocephalic and Anicteric
Respiratory: Clear and Non Labored Respirations
Cardiac: S1/S2 and Regular Rhythm; Negative Murmur, Rub, Peripheral Edema or JVD
GI: Soft and Non Tender
Genito-urinary: No Costovertebral Tender
Musculoskeletal: No Clubbing, No Cyanosis and No Edema
Neuro: Awake, Alert, Oriented, No Motor Deficits and Nonfocal/Grossly Intact
Psych: Calm
Impression / Plan
-
Stable angina
Recent acute inferior ST-elevation myocardial infarction
Multi-vessel coronary artery disease
- ECG with changes not concerning for an acute ischemic event.
- Troponin 0.019; trend Q6h.
- She does have significant residual CAD burden, possibly contributing to her presentation.
- Increase metoprolol to 25.
- Start Imdur.
- Can try amlodipine/nicardipine if not tolerating Imdur.
- Continue DAPT with aspirin and ticagrelor.
- Plan to monitor for at least a day to see if the symptoms ania with pharmacotherapy.
- Alternative would be to keep her in-house with ticagrelor washout for a subsequent bypass if symptoms fail or improve or if she does not tolerate medical therapy.
Type II diabetes mellitus, poorly controlled.
- A1c 9.5 on 10-25-24; goal <7.
- SSI.
Hyperlipidemia
- Continue atorvastatin 80 mg.
- Goal LDL <55.
Primary hypertension
Orthostatic hypotension
- Continue metoprolol succinate.
- Hold midodrine.
--- NOTE | 2024-11-07 14:25 | CM ---
CM reviewed chart and met with pt bedside in ED. Lives alone in 2 story home, [address]. No DME, no current or prior VN or SNF.
PCP: Fadumo Reyez
Pharmacy: [facility]
Plan: ak home pending ongoing medical evaluation
--- NOTE | 2024-11-07 16:57 | HPS.HSE ---
Family Physician
-
Family Physician: Fadumo Reyez MD, Resident
Chief Complaint
-
BACK PAIN
History of Present Illness
69-year-old female with extensive past medical history is presenting from home with complaints of right shoulder pain and back pain. Patient states her back pain was in the middle of her chest. States her symptoms feel similar prior to her
hospitalization for angina. States been under increasing amount of stress recently. Patient was recently admitted to the hospital and underwent cardiac catheterization with drug-eluting stent placement. Plan was to continue patient on dual
antiplatelet regimen until we can wean as outpatient for plan for CABG as outpatient. Patient states of worsening of chest pain with standing and exertion. Denies any nausea or vomiting. Denies any shortness of breath. Denies feeling lightheaded
and dizzy. Also states of dry cough while eating. Said the cough has been chronic. No fevers chills.
Medical History
Past Medical History
Past Medical History: Reports Other
Additional Past Medical History:
CAD status post LITTLE
Insulin-dependent diabetes
Depression
Orthostatic hypotension
History of head trauma
Chronic right frontal lobe lesion
Hyperlipidemia
Past Surgical History: Reports Other
Additional Past Surgical History:
Benign breast lumpectomy
ROHAN/BSO
Social History
Tobacco: Former Smoker
Alcohol: None
Family History
Family History: Not pertinent
Allergies / Home Medications
Allergies reflects when Allergies were last updated in [facility].
Home Medications with original date entered in [facility]
Allergy/Medication List:
Allergies
Allergy/AdvReac Type Severity Reaction Status Date / Time
No Known Allergies Allergy Verified 11/07/24 11:35
Home Medications
duloxetine 30 mg capsule,delayed release (Cymbalta) 30 mg PO HS Mental Health/Anxiety 10/24/24
insulin lispro 100 unit/mL subcutaneous pen (Humalog KwikPen (U-100) Insulin) 6 unit SC AC Diabetes 10/24/24
midodrine 2.5 mg tablet 2.5 mg PO TID Blood Pressure 10/24/24
acetaminophen 325 mg tablet (Tylenol) 650 mg PO Q6HPRN PRN mild pain 11/07/24
aspirin 81 mg chewable tablet 81 mg PO DAILY Heart Disease/Condition 11/07/24
atorvastatin 80 mg tablet 80 mg PO HS High Cholesterol 11/07/24
empagliflozin 10 mg tablet (Jardiance) 10 mg PO QPM Diabetes 11/07/24
insulin glargine-yfgn 100 unit/mL subcutaneous solution 12 unit SC HS Diabetes 11/07/24
metformin 500 mg tablet 500 mg PO BID@0800,1700 Diabetes 11/07/24
metoprolol succinate 25 mg tablet,extended release 24 hr 12.5 mg PO DAILY Blood Pressure 11/07/24
ticagrelor 90 mg tablet (Brilinta) 90 mg PO BID Heart Disease/Condition 11/07/24
Review of Systems
-
History Source: Patient
Constitutional: Reports No Symptoms
EENT: Reports No Symptoms
Respiratory: Reports Cough
Cardiac: Reports See HPI
Abdomen/GI: Reports No Symptoms
: Reports No Symptoms
Musculoskeletal: Reports No Symptoms
Skin: Reports No Symptoms
Neurological: Reports No Symptoms
Endocrine: Reports No Symptoms
Hematologic/Lymphatic: Reports No Symptoms
Psych: Reports No Symptoms
Physical Exam
Vital Signs
Vital Signs
Temp Pulse Resp BP Pulse Ox
98.1 F 79 18 156/76 98
11/07/24 11:32 11/07/24 11:32 11/07/24 11:32 11/07/24 11:32 11/07/24 11:32
Physical Exam
General: Well Developed, Well Nourished and No Apparent Distress
HEENT: NormoCephalic, Moist mucous membranes and Atraumatic
Respiratory: Clear
Cardiac: S1/S2 and Regular Rhythm; No Murmur or Rub
GI: Soft, Non Tender, Non Distended and Normal Bowel Sounds; No Organomegaly
Rectal: Deferred by Provider
Musculoskeletal: No Clubbing, No Cyanosis and No Edema
Skin: No Rash
Neuro: Awake, Alert, Oriented, AO x 3, No Motor Deficits and Nonfocal/grossly intact
Psych: Calm
Laboratory Results
-
11/07/24 11:51
11/07/24 11:51
Laboratory Results
PT 13.8 Sec (11.4-14.6) 11/07/24 11:51
INR 1.01 11/07/24 11:51
Total Bilirubin 0.9 mg/dl (0.2-1.3) 11/07/24 11:51
AST 25 U/L (14-36) 11/07/24 11:51
ALT 33 U/L (0-35) 11/07/24 11:51
Alkaline Phosphatase 98 U/L (38-126) 11/07/24 11:51
Troponin I 0.019 ng/ml 11/07/24 11:51
Data Reviewed
-
Lab Data: Labs Reviewed by me and Discussed with Patient
Old Records: Reviewed
Impression/Plan
-
#Stable angina
#Multivessel coronary artery disease status post LITTLE to RCA
Start patient on Imdur
Agree with increase of Toprol
Midodrine with hold parameters. Compression stockings. May also consider abdominal binder if needed
Check a chest x-ray
EKG with T wave inversion new from prior comparison noted
Trend troponin
If with persistent chest pain may need to be started on nitroglycerin drip
Cardiology has been consulted
#Chronic HFrEF
Looks euvolemic
Recent echo with EF of 40 to 45%
Continue with SGLT2 inhibitor
Continue with beta-anum
Goal-directed medical therapy
#Insulin-dependent diabetes mellitus
Continue with Lantus 12 units nightly and NovoLog 6 units AC.
Insulin sliding scale and Accu-Cheks
Hold metformin for now
A1c of 9.4 in 10/28
#Hyperlipidemia
Continue with high-dose statin for now
#Mood disorder
Continue with Cymbalta
# Chronic cough associated with eating
Start patient on Pepcid for now
Speech therapy evaluation
Check a chest x-ray
#Chronic autonomic dysfunction with orthostatic hypotension
Midodrine with hold parameters
#Head trauma/chronic frontal lobe lesion
Monitor
DVT prophylaxis with Lovenox
Full code
I spent a total of 80 minutes with the patient or on the floor. More than 50% of this time involved counseling and coordination of care.
[2024-11-07] MEDS: TOPROL XL 25 MG PO (17:32)
[2024-11-07] MEDS: IMDUR (EXTENDED RELEASE) 30 MG PO (17:32)
[2024-11-07 18:21] LABS: Glucose - Point of Care 275 mg/dl (70-99)
[2024-11-07 18:59] LABS: Troponin I 0.017 ng/ml
--- NOTE | 2024-11-07 19:30 | PTCARENOTE ---
pt us SR w/ HR=90's, but while ambulating heart eiue=327's then back to 90's while resting.
[2024-11-07 21:18] LABS: Glucose - Point of Care 317 mg/dl (70-99)
--- NOTE | 2024-11-07 21:35 | PTCARENOTE ---
2134 pt reported upper chest pain '8/10 achy', with pain to neck and back also. bp= 146/85p=84. pt reports that she had chest pain, dizziness, and sweats while in the bathroom, but this is the first time she is having pain laying down. 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
Dael - ekg completed and trops sent. no c/o SOB. administered Ultram w/+eff.
2229 reevaluated pt had no pain. pt reports increase in muscle pain- [place] and the horses and friend there all tested positive for lymes and was wondering if she could have a test too. Informed CNC LATHE MACHINIST Dale
0000 pt sleeping.
[2024-11-07] MEDS: CYMBALTA DELAYED RELEASE 30 MG PO (21:37)
[2024-11-07] MEDS: LIPITOR 80 MG PO (21:38)
[2024-11-07] MEDS: BRILINTA 90 MG PO (21:38)
[2024-11-07] MEDS: PEPCID 20 MG PO (21:38)
[2024-11-07] MEDS: LANTUS 0.12 UNITS SC (21:39)
[2024-11-07] MEDS: LOVENOX 40 MG SC (21:44)
[2024-11-07] MEDS: ULTRAM 50 MG PO (21:44)
[2024-11-07 22:35] LABS: Troponin I 0.016 ng/ml
[2024-11-08] VITALS (9 sets, daily range): BP systolic 76–148; BP diastolic 33–81; PULSE 74–76; BMI 26.0
--- NOTE | 2024-11-08 05:39 | PTCARENOTE ---
slept throught the night. woke up no c/o chest pain, but dizzy after using the bathroom. tq=695/80 HR=73
[2024-11-08 07:16] LABS: Glucose - Point of Care 200 mg/dl (70-99)
[2024-11-08 07:50] LABS: Troponin I 0.025 ng/ml
[2024-11-08 08:02] LABS: Blood Urea Nitrogen 28 mg/dl (7-17); Calcium 9.2 mg/dl (8.4-10.2); Carbon Dioxide 18 mmol/L (22-30); Chloride 112 mmol/L (98-107); Estimated Creatinine Clearance 49 ml/min; Glucose 190 mg/dl (70-99); Potassium 4.5 mmol/L (3.5-5.1); Sodium 141 mmol/L (135-145); eGFR > 60.00
--- NOTE | 2024-11-08 08:51 | PTOTSP ---
Dysphagia Eval
No signs of oral/pharyngeal dysphagia. Patient reported neck muscle soreness/fatigue with eating/drinking with onset 11/05. MD notified.
Recommend:
1. Regular, Thin
2. Medications as best tolerated
3. General aspiration and reflux precautions
4. Will sign off. Please reconsult as appropriate.
[2024-11-08] MEDS: LOW STRENGTH ASPIRIN 81 MG PO (09:05)
[2024-11-08] MEDS: BRILINTA 90 MG PO ×2 (09:05→21:31)
[2024-11-08] MEDS: TOPROL XL 25 MG PO ×2 (09:05→13:52)
[2024-11-08] MEDS: PEPCID 20 MG PO (09:06)
[2024-11-08] MEDS: IMDUR (EXTENDED RELEASE) 30 MG PO (09:06)
--- NOTE | 2024-11-08 10:35 | W.PN.CD ---
Today's Communication / Plan
-
Increase metoprolol to 50 mg daily.
Restart midodrine for orthostasis.
Monitor BP with adjustment of beta anum, long acting nitrate.
Impression / Plan
-
Impression/Plan: 69 y/o female with orthostatic hypotension, IDDM, HTN, HLD, multivessel CAD s/p [facility], with significant residual CAD awaiting CABG, admitted with her anginal equivalent (back/shoulder 'soreness').
#Unstable angina
-Acute.
-Acute T wave inversions in the inferior and lateral leads.
-Troponin negative.
-She does have significant residual CAD burden contributing to her presentation.
-Continue isosorbide mononitrate. Increase metoprolol to 50 mg daily.
-If symptoms persist, we will consider CCB.
-Continue DAPT at this time.
-If symptoms are unresponsive to medical management, we will ask CT surgery to weigh in regarding expedited CABG.
#Multi-vessel coronary artery disease/prior STEMI + PCI
-Chronic.
-S/P PCI to [facility] culprit lesion (Medtronic [place] 3.5 x 26 LITTLE, 10/24/2024).
-DAPT.
-High dose, high potency statin.
-CABG pending.
#IDDM2
-Chronic, poorly controlled.
-HbA1c 9.5% on 10-25-24; goal <7.
-SSI.
-She would benefit from GLP-1 analogs at the time of discharge.
#Hyperlipidemia
-Chronic, stable.
-Continue atorvastatin 80 mg.
-Goal LDL <55.
#Primary hypertension
-Chronic, stable.
-Monitor with adjustment of beta anum, long acting nitrates.
#Orthostatic hypotension
-Chronic.
-Restarting midodrine for orthostatic symptoms.
Subjective/Interval History:
Overnight, occasional discomfort, worse with standing.
HR noted to be in 120's with activity.
Metoprolol increased yesterday and isosorbide mononitrate added.
Labs show metabolic acidosis - appears non-gapped.
She admits to some dizziness - nursing reports orthostatic hypotension. Midodrine has been re-ordered.
DATA:
Cardiac catheterization/PCI, 10/24/2024:
CONCLUSIONS
1. Right dominant circulation with a 90% lesion in the proximal LAD, proximal to the origin of a large diagonal, a 70% lesion in the mid LAD immediately distal to the origin of the large diagonal, a 70% lesion in the origin of OM1, a 40% lesion in
the mid RCA, along 70% lesion in the distal RCA before the origin of the RPDA, and 80% lesion in the midportion of the large posterolateral branch and a culprit, 95% lesion in the proximal RCA with ALEX II flow, status post successful PCI ([employer]tronic
[place] 3.5 x 26 LITTLE, postdilated with a 3.5 NC balloon) with reduction in stenosis to 0%, restoring ALEX-3 flow.
2. Severely elevated filling pressure (LVEDP = 25 mmHg at 76.0 kg).
3. Normal left ventricular size with severe hypokinesis/akinesis of the inferior wall and mildly reduced left ventricular systolic function (LVEF estimated at 40-45%).
TTE, 10/25/2024:
CONCLUSIONS
Preserved left ventricular function with estimated ejection fraction 55%.
Basal inferior hypokinesisMild mitral regurgitation.
Trace aortic regurgitation.
Trace tricuspid regurgitation.
Compared to the previous study 03/13/2024 basal inferior hypokinesis is reported.
Physical Exam
Vital Signs/Labs
Vital Signs
Temp Pulse Resp BP Pulse Ox
36.8 C 73 18 140/70 97
11/08/24 07:45 11/08/24 07:45 11/08/24 07:45 11/08/24 07:45 11/08/24 07:45
11/06/24 11/07/24 11/08/24
11:59 11:59 11:59
Actual Weight 70.896 kg
11/07/24 11:51
11/08/24 07:11
PT 13.8 Sec (11.4-14.6) 11/07/24 11:51
INR 1.01 11/07/24 11:51
LAB Results
11/07/24 11/07/24 11/07/24
11:51 18:26 21:55
Troponin I 0.019 0.017 0.016
11/08/24 11/08/24
00:00 07:11
Troponin I Cancelled 0.025
Physical Exam
Constitutional: No acute distress and Comfortable
EENT: Anicteric and Moist mucous membranes
Cardiovascular: Rhythm & rate is regular, Pedal edema is absent, JVD pressure is normal, S1S2 is normal and Murmur/rub/gallop absent
Respiratory: Respiratory effort normal, Lungs clear to auscul., Wheeze Absent, Crackles Absent and Rhonchi Absent
GI: Soft, Distention absent, Flat, Non tender and Normal bowel sounds
Neuro/Psych: AO x 3
Data Reviewed
-
Date of Service: November 08, 2024
Medical Decision Making: Reviewed Test Results, Independent Historian Assessment and Test Interpretation
EKG: Tracing Personally Visualized and interpreted and Report Reviewed by me
X-Ray/CT/US/MRI/NUC/PET: Image Personally Visualized and interpreted and Report Reviewed by me
Medical Tests (PFT, Pathology etc): Image Personally Visualized and interpreted, Report Reviewed by me and Discussed with Patient
Labs: Labs Reviewed by me
Old Records: Reviewed
[2024-11-08] MEDS: NOVOLOG FLEXPEN SC (10:43)
[2024-11-08] MEDS: NOVOLOG FLEXPEN-LOW RESISTANCE SC ×2 (10:43→17:19)
[2024-11-08 11:12] LABS: Glucose - Point of Care 229 mg/dl (70-99)
--- NOTE | 2024-11-08 11:53 | W.PN.HOSP.TC ---
Today's Communication/Plan
-
Continue with midodrine as patient was symptomatic due to positive orthostatics
Continue with Imdur may need increased dosing
Await further cardiology recs
Assessment / Plan
Assessment / Plan
General: Well Developed, Well Nourished and No Apparent Distress
HEENT: NormoCephalic, Moist mucous membranes and Atraumatic
Respiratory: Clear
Cardiac: S1/S2 and Regular Rhythm; No Murmur or Rub
GI: Soft, Non Tender, Non Distended and Normal Bowel Sounds; No Organomegaly
Rectal: Deferred by Provider
Musculoskeletal: No Clubbing, No Cyanosis and No Edema
Skin: No Rash
Neuro: Awake, Alert, Oriented, AO x 3, No Motor Deficits and Nonfocal/grossly intact
Psych: Calm
#Stable angina
#Multivessel coronary artery disease status post LITTLE to RCA
Start patient on Imdur 30 mg daily. May need to consider increasing dose.
Agree with increase of Toprol
Midodrine with hold parameters. Compression stockings. May also consider abdominal binder if needed
Chest x-ray negative for infiltrates.
EKG with T wave inversion new from prior comparison noted
Troponin remains flat
If with persistent chest pain may need to be started on nitroglycerin drip
Monitor overnight
Cardiology has been consulted
#Chronic HFrEF
Looks euvolemic
Recent echo with EF of 40 to 45%
Continue with SGLT2 inhibitor-non formulary hold for now per pt preference-doesnot want farxiga
Continue with beta-anum
Goal-directed medical therapy
#Insulin-dependent diabetes mellitus
Continue with Lantus 12 units nightly and NovoLog 6 units AC.
Insulin sliding scale and Accu-Cheks
Hold metformin for now
A1c of 9.4 in 10/28
#Hyperlipidemia
Continue with high-dose statin for now
#Mood disorder
Continue with Cymbalta
# Chronic cough associated with eating
Start patient on Pepcid for now
Speech therapy evaluation-regular diet
Check a chest x-ray
#Chronic autonomic dysfunction with orthostatic hypotension
Midodrine with hold parameters
#Head trauma/chronic frontal lobe lesion
Monitor
DVT prophylaxis with Lovenox
Full code
Anticipated Discharge: Within 24 hours
Subjective/Interval History
-
Date of Service: November 08, 2024
Patient today she was symptomatic feeling lightheaded upon standing up and also episode of diaphoresis
Objective Data
-
Labs:
Laboratory Results
11/08/24
07:11
Sodium 141
Potassium 4.5
Chloride 112 H
Carbon Dioxide 18 L
BUN 28 H
Creatinine 1.0
Glucose 190 H
Calcium 9.2
Vital Signs:
Vital Signs
Temp Pulse Resp BP Pulse Ox
98.6 F 74 18 119/58 98
11/08/24 11:13 11/08/24 11:13 11/08/24 11:13 11/08/24 11:13 11/08/24 11:13
I&O
11/07/24 11/08/24 11/09/24
06:59 06:59 06:59
Intake Total 680 / 680
Balance 680 / 680
[2024-11-08 11:57] LABS: Glucose - Point of Care 207 mg/dl (70-99)
[2024-11-08 12:19] LABS: Troponin I 0.015 ng/ml
[2024-11-08] MEDS: ProAmatine 5 MG PO (12:31)
[2024-11-08] MEDS: NOVOLOG FLEXPEN-LOW RESISTANCE 2 UNITS SC (13:49)
[2024-11-08] MEDS: NOVOLOG FLEXPEN 6 UNITS SC ×2 (13:50→18:21)
--- NOTE | 2024-11-08 15:24 | CM ---
Patient declined to sign AN letter.
Plan; Home when stable.
[2024-11-08 16:57] LABS: Glucose - Point of Care 121 mg/dl (70-99)
[2024-11-08] MEDS: LOVENOX 40 MG SC (18:20)
[2024-11-08] MEDS: ProAmatine 2.5 MG PO (18:21)
[2024-11-08 21:31] LABS: Glucose - Point of Care 119 mg/dl (70-99)
[2024-11-08] MEDS: LANTUS SC (21:32)
[2024-11-08] MEDS: CYMBALTA DELAYED RELEASE 30 MG PO (21:32)
[2024-11-08] MEDS: NON-FORMULARY ITEM 10 MG PO (21:32)
[2024-11-08] MEDS: LIPITOR 80 MG PO (21:32)
[2024-11-08] MEDS: TYLENOL 650 MG PO (21:37)
[2024-11-09] MEDS: ULTRAM 50 MG PO (00:48)
[2024-11-09 03:34] VITALS: BP 113/57
--- NOTE | 2024-11-09 06:21 | PTCARENOTE ---
Patient refused morning weight. Will pass along to dayshift RN. Patient education provided.
--- NOTE | 2024-11-09 06:30 | W.PN.CD ---
Today's Communication / Plan
-
Symptoms improved with higher dose metoprolol and tramadol
Cycle EKG.
I am questioning if shoulder pain is true anginal equivalent vs. MSK. We may never know until she is revascularized.
She is likely stable for outpatient follow up and maintaining her appointment with CT surgery for planned CABG.
We discussed red-flag symptoms.
A course of tramadol is reasonable for any MSK issues.
She should carry SL nitro on her person at all times and avoid strenuous activity.
Impression / Plan
-
Impression/Plan: 69 y/o female with orthostatic hypotension, IDDM, HTN, HLD, multivessel CAD s/p recent STEMI and PCI to pRCA, with significant residual CAD awaiting CABG, admitted with her anginal equivalent (back/shoulder 'soreness').
#Unstable angina/shoulder pain
-Acute.
-Acute T wave inversions in the inferior and lateral leads. Troponin negative.
-She does have significant residual CAD burden contributing to her presentation.
-I am now questioning if her her 'shoulder soreness' is a true anginal equivalent. It seems responsive to respond to tramadol, though symptoms also improved with increased dose of metoprolol.
-Continue DAPT, isosorbide mononitrate and metoprolol to 50 mg daily.
-Given that she feels better without evidence of ACS and that she reports her symptoms are near her baseline at home (where she has had symptoms for > 1 year), she can likely be managed medically and maintain her outpatient appointment with CTS and
planned revascularization.
-We reviewed red-flag symptoms and indications to call 911.
-Outpatient course of tramadol is reasonable for potential MSK component.
-She should carry SL nitro on her person at all times.
#Multi-vessel coronary artery disease/prior STEMI + PCI
-Chronic.
[facility] ([employer] [place] 3.5 x 26 LITTLE, 10/24/2024).
-DAPT.
-High dose, high potency statin.
-CABG pending (timing TBD, outpatient CTS appointment on 11/14/2024).
#IDDM2
-Chronic, poorly controlled.
-HbA1c 9.5% on 10-25-24; goal <7.
-SSI.
-She would benefit from GLP-1 analogs at the time of discharge.
#Hyperlipidemia
-Chronic, stable.
-Continue atorvastatin 80 mg.
-Goal LDL <55.
#Primary hypertension
-Chronic, stable.
-Monitor with adjustment of beta anum, long acting nitrates.
#Orthostatic hypotension
-Chronic.
-Continue midodrine for orthostatic symptoms.
Subjective/Interval History:
Refused weight this morning.
BP stabilized after resuming midodrine.
Metoprolol increased to 50 mg daily.
Multiple episodes of 'shoulder soreness' with negative troponins. She reports her symptoms are generally improved, responsive to tramadol.
Labs pending.
DATA:
Cardiac catheterization/PCI, 10/24/2024:
CONCLUSIONS
1. Right dominant circulation with a 90% lesion in the proximal LAD, proximal to the origin of a large diagonal, a 70% lesion in the mid LAD immediately distal to the origin of the large diagonal, a 70% lesion in the origin of OM1, a 40% lesion in
the mid RCA, along 70% lesion in the distal RCA before the origin of the RPDA, and 80% lesion in the midportion of the large posterolateral branch and a culprit, 95% lesion in the proximal RCA with ALEX II flow, status post successful PCI ([employer]tronic
[place] 3.5 x 26 LITTLE, postdilated with a 3.5 NC balloon) with reduction in stenosis to 0%, restoring ALEX-3 flow.
2. Severely elevated filling pressure (LVEDP = 25 mmHg at 76.0 kg).
3. Normal left ventricular size with severe hypokinesis/akinesis of the inferior wall and mildly reduced left ventricular systolic function (LVEF estimated at 40-45%).
TTE, 10/25/2024:
CONCLUSIONS
Preserved left ventricular function with estimated ejection fraction 55%.
Basal inferior hypokinesisMild mitral regurgitation.
Trace aortic regurgitation.
Trace tricuspid regurgitation.
Compared to the previous study 03/13/2024 basal inferior hypokinesis is reported.
Physical Exam
Vital Signs/Labs
Vital Signs
Temp Pulse Resp BP Pulse Ox
36.7 C 70 22 113/57 96
11/09/24 03:34 11/09/24 03:34 11/09/24 03:34 11/09/24 03:34 11/09/24 03:34
11/07/24 11/08/24 11/09/24
11:59 11:59 11:59
Actual Weight 70.896 kg
11/07/24 11:51
PT 13.8 Sec (11.4-14.6) 11/07/24 11:51
INR 1.01 11/07/24 11:51
LAB Results
11/07/24 11/07/24 11/07/24
11:51 18:26 21:55
Troponin I 0.019 0.017 0.016
11/08/24 11/08/24 11/08/24
00:00 07:11 11:43
Troponin I Cancelled 0.025 0.015 D
11/08/24 11/09/24
21:24 00:00
Troponin I Cancelled Cancelled
Physical Exam
Constitutional: No acute distress and Comfortable
EENT: Anicteric and Moist mucous membranes
Cardiovascular: Rhythm & rate is regular, Pedal edema is absent, JVD pressure is normal, S1S2 is normal and Murmur/rub/gallop absent
Respiratory: Respiratory effort normal, Lungs clear to auscul., Wheeze Absent, Crackles Absent and Rhonchi Absent
GI: Soft, Distention absent, Flat, Non tender and Normal bowel sounds
Neuro/Psych: AO x 3
Data Reviewed
-
Date of Service: November 09, 2024
Medical Decision Making: Reviewed Test Results, Independent Historian Assessment and Test Interpretation
EKG: Tracing Personally Visualized and interpreted, Report Reviewed by me and Ordered by me
X-Ray/CT/US/MRI/NUC/PET: Image Personally Visualized and interpreted and Report Reviewed by me
Medical Tests (PFT, Pathology etc): Image Personally Visualized and interpreted, Report Reviewed by me, Discussed with Physician and Discussed with Patient
Labs: Labs Reviewed by me
Old Records: Reviewed
[2024-11-09 07:10] VITALS: BP 158/72
[2024-11-09 07:43] LABS: Glucose - Point of Care 175 mg/dl (70-99)
[2024-11-09 08:17] LABS: Blood Urea Nitrogen 27 mg/dl (7-17); Calcium 9.5 mg/dl (8.4-10.2); Carbon Dioxide 22 mmol/L (22-30); Chloride 111 mmol/L (98-107); Estimated Creatinine Clearance 55 ml/min; Glucose 157 mg/dl (70-99); Potassium 4.6 mmol/L (3.5-5.1); Sodium 142 mmol/L (135-145); eGFR > 60.00
[2024-11-09] MEDS: NOVOLOG FLEXPEN-LOW RESISTANCE 1 UNITS SC (09:23)
[2024-11-09] MEDS: NOVOLOG FLEXPEN 6 UNITS SC (09:23)
[2024-11-09] MEDS: PEPCID 20 MG PO (09:25)
[2024-11-09] MEDS: IMDUR (EXTENDED RELEASE) 30 MG PO (09:25)
[2024-11-09] MEDS: ProAmatine 2.5 MG PO ×2 (09:25→11:51)
[2024-11-09] MEDS: BRILINTA 90 MG PO (09:26)
[2024-11-09] MEDS: LOW STRENGTH ASPIRIN 81 MG PO (09:26)
[2024-11-09] MEDS: TOPROL XL 50 MG PO (09:26)
--- NOTE | 2024-11-09 10:57 | W.PN.HOSP.TC ---
Today's Communication/Plan
-
Antianginal medication
Outpatient CT surgery follow-up
Assessment / Plan
Assessment / Plan
General: Well Developed, Well Nourished and No Apparent Distress
HEENT: NormoCephalic, Moist mucous membranes and Atraumatic
Respiratory: Clear
Cardiac: S1/S2 and Regular Rhythm; No Murmur or Rub
GI: Soft, Non Tender, Non Distended and Normal Bowel Sounds; No Organomegaly
Rectal: Deferred by Provider
Musculoskeletal: No Clubbing, No Cyanosis and No Edema
Skin: No Rash
Neuro: Awake, Alert, Oriented, AO x 3, No Motor Deficits and Nonfocal/grossly intact
Psych: Calm
#Stable angina
#Multivessel coronary artery disease status post LITTLE to RCA
Start patient on Imdur 30 mg daily. May need to consider increasing dose.
Agree with increase of Toprol
Midodrine with hold parameters. Compression stockings. May also consider abdominal binder if needed
Chest x-ray negative for infiltrates.
EKG with T wave inversion new from prior comparison noted
Troponin remains flat
Patient right back pain/shoulder pain could be angina versus musculoskeletal. 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
Patient's symptoms improved with adjustment of antianginal medication. Will prescribe nitroglycerin as needed. Patient to keep her appointment with CT surgery 11/13/2024.
Cardiology has been consulted
#Chronic HFrEF
Looks euvolemic
Recent echo with EF of 40 to 45%
Continue with SGLT2 inhibitor-non formulary hold for now per pt preference-doesnot want farxiga
Continue with beta-anum
Goal-directed medical therapy
#Insulin-dependent diabetes mellitus
Continue with Lantus 12 units nightly and NovoLog 6 units AC.
Insulin sliding scale and Accu-Cheks
Hold metformin for now
A1c of 9.4 in 10/28
#Hyperlipidemia
Continue with high-dose statin for now
#Mood disorder
Continue with Cymbalta
# Chronic cough associated with eating
Start patient on Pepcid for now
Speech therapy evaluation-regular diet
Check a chest x-ray
#Chronic autonomic dysfunction with orthostatic hypotension
Midodrine with hold parameters
#Head trauma/chronic frontal lobe lesion
Monitor
DVT prophylaxis with Lovenox
Full code
Discussed with practicing dermatologist and per cardiology patient can be discharged. Patient agreeable with discharge home today.
More than 30 minutes spent in discharge including
Final examination of the patient
Summarizing hospital stay
Instructions for continuing care to all relevant caregivers
Preparation of discharge records, prescriptions, and referral forms
Total time spent (in minutes): 52
Anticipated Discharge: Today
Subjective/Interval History
-
Date of Service: November 09, 2024
Denies any chest pain or shoulder pain or lightheaded or dizziness.
Objective Data
-
Labs:
Laboratory Results
11/09/24
07:15
Sodium 142
Potassium 4.6
Chloride 111 H
Carbon Dioxide 22
BUN 27 H
Creatinine 0.9
Glucose 157 H
Calcium 9.5
Vital Signs:
Vital Signs
Temp Pulse Resp BP Pulse Ox
97.9 F 73 16 158/72 97
11/09/24 07:10 11/09/24 07:10 11/09/24 07:10 11/09/24 07:10 11/09/24 07:10
I&O
11/08/24 11/09/24 11/10/24
06:59 06:59 06:59
Intake Total 680 / 680 900 / 900
Balance 680 / 680 900 / 900
--- NOTE | 2024-11-09 10:59 | W.DCSUMMARY ---
Discharge Summary
Discharge Data
Date of Admission: 11/07/24
Date of Discharge: 11/09/24
-
Pending Results: No
Hospital Course
69-year-old female past medical history of chronic HFrEF, diabetes mellitus, hyperlipidemia, mood disorder, chronic autonomic dysfunction with orthostatic hypotension, history of head trauma, chronic frontal lobe lesion, multivessel coronary artery
disease, CAD status post LITTLE, who is presenting from home with complaints of right shoulder/upper back pain. Patient symptomology was concerning for angina versus musculoskeletal. Patient said her symptoms were similar to her prior presentation
when she was found to have a CAD. Patient was eval by cardiology. Patient troponin remained flat. Patient was started on Imdur. Toprol dose was increased. Patient blood pressure was monitored. Patient remained with orthostatic hypotension
which was managed with midodrine. Patient was tolerating Imdur and metoprolol. Patient symptomology improved. Plan will be to continue with antiplatelet agents and to follow-up with her appointment with CT surgery next week to continue with preop
testing for CABG. Patient understand to return to ER if she has any new onset of chest pain or shoulder pain. Patient verbalized understanding. Patient case was discussed with interventional cardiology who recommended patient to be discharged
home with outpatient follow-up.
Discharge Plan
-
Patient Disposition: Home (Routine Discharge)
Discharge Diagnosis/Procedures: Angina
Condition: Fair
Diet: Low Cholesterol
Activity: As tolerated
Driving Restrictions: Avoid driving while on narcotics..
Referrals:
Fadumo Reyez MD, Resident [Family Provider, General] - in less than 1 week
Additional Discharge Medication Instructions: Metoprolol succinate dose has been increased to 50 mg daily.
Prescriptions:
New
metoprolol succinate 50 mg Tablet Extended Release 24 Hr
50 mg PO DAILY 30 Days Qty: 30 0RF
nitroglycerin 0.4 mg Tablet, Sublingual
0.4 mg sublingual [id number] PRN (Reason: Angina (chest/shoulder pain)) Qty: 30 0RF
tramadol 50 mg Tablet
50 mg PO Q6HPRN PRN (Reason: severe pain) Qty: 15 0RF
Continued
midodrine 2.5 mg Tablet
2.5 mg PO TID
duloxetine [Cymbalta] 30 mg Capsule,Delayed Release(Dr/Ec)
30 mg PO HS
insulin lispro [Humalog KwikPen Insulin] 100 unit/mL insulin pen
6 unit SC AC
acetaminophen [Tylenol] 325 mg Tablet
650 mg PO Q6HPRN PRN (Reason: mild pain)
insulin glargine-yfgn 100 unit/mL Solution
12 unit SC HS
atorvastatin 80 mg tablet
80 mg PO HS
Jardiance 10 mg tablet
10 mg PO QPM
metformin 500 mg tablet
500 mg PO BID@0800,1700
aspirin 81 mg tablet,chewable
81 mg PO DAILY
ticagrelor [Brilinta] 90 mg tablet
90 mg PO BID
Discontinued
metoprolol succinate 25 mg tablet extended release 24 hr
12.5 mg PO DAILY
Discharge Orders:
Discharge Patient (As Directed); Ordered 11/09/24
Ordered By: Donell Davidson
Discharge Date and Time
Discharge Date/Time: 11/09/24 13:05
Print Language: [email or web address]
[2024-11-09 11:18] VITALS: BP 138/66
[2024-11-09 11:28] LABS: Glucose - Point of Care 255 mg/dl (70-99)
[2024-11-09] MEDS: NOVOLOG FLEXPEN SC (11:34)
[2024-11-09] MEDS: NOVOLOG FLEXPEN-LOW RESISTANCE SC (11:35)
--- NOTE | 2024-11-09 12:18 | CM ---
AN letter given on admission, home no needs.
Plan; Home no needs.
--- NOTE | 2024-11-09 13:18 | W.[place]-PDMP ---
[place]-PD[place]
-
Checked the [place]- Prescription Drug Monitoring Program website, no red flags identified; safe to proceed with prescription.
== END 2024-11-09 13:05 | disposition home or self-care (01) ==
LOC: 4 WEST ACU 17:11
PROVIDERS: Emergency Medicine; Student in an Organized Health Care Education/Training Program; ADMITTING PHYSICIAN Hospitalist; EMERGENCY PHYSICIAN Emergency Medicine; OTHER PHYSICIAN Internal Medicine Cardiovascular Disease
DX: I25.118 Atherosclerotic heart disease of native coronary artery with other forms of angina pectoris (principal); R07.9 Chest pain, unspecified; I50.22 Chronic systolic (congestive) heart failure; I11.0 Hypertensive heart disease with heart failure; E11.43 Type 2 diabetes mellitus with diabetic autonomic (poly)neuropathy; E11.65 Type 2 diabetes mellitus with hyperglycemia; M25.511 Pain in right shoulder; E87.20 Acidosis, unspecified; M54.6 Pain in thoracic spine; R05.3 Chronic cough; G90.89 Other disorders of autonomic nervous system; E78.00 Pure hypercholesterolemia, unspecified; I95.1 Orthostatic hypotension; F32.A Depression, unspecified; I25.2 Old myocardial infarction; Z95.5 Presence of coronary angioplasty implant and graft; Z95.1 Presence of aortocoronary bypass graft; Z90.710 Acquired absence of both cervix and uterus; Z87.891 Personal history of nicotine dependence; Z90.722 Acquired absence of ovaries, bilateral; Z82.49 Family history of ischemic heart disease and other diseases of the circulatory system; Z82.3 Family history of stroke; Z83.3 Family history of diabetes mellitus; Z79.82 Long term (current) use of aspirin; Z79.84 Long term (current) use of oral hypoglycemic drugs; Z79.02 Long term (current) use of antithrombotics/antiplatelets; Z79.4 Long term (current) use of insulin; Z79.899 Other long term (current) drug therapy; Z91.81 History of falling; Z60.2 Problems related to living alone
CPT/HCPCS: 71046; 80048; 80053; 82962; 84484; 85025; 85610; 92610; 93005; 99285; G0378

== ENCOUNTER 2024-11-26 04:56 | Inpatient (IN) | payer MEDICARE, OTHER, SELFPAY ==
[2024-11-20 11:01] VITALS: BMI 25.5
[2024-11-20 11:16] LABS: % Eosinophils 4.7 % (0-6); % Immature Granulocytes 0.2 % (0-0.5); % Lymphocytes 30.2 % (20.5-51.1); % Neutrophils 55.9 % (42.2-75.2); Absolute Basophils 0.1 10^3/uL (0-0.2); Absolute Eosinophils 0.3 10^3/uL (0-0.7); Absolute Lymphocytes 1.9 10^3/uL (1.2-3.4); Absolute Monocytes 0.5 10^3/uL (0.1-0.6); Absolute Neutrophils 3.5 10^3/uL (1.4-6.5); Hematocrit 38.1 % (37.0-47.0); Hemoglobin 13.1 g/dL (12.0-16.0); Mean Corp Hgb Conc. 34.4 g/dL (33.0-37.0); Mean Corpuscular Hgb 28.2 pg (27.0-31.0); Mean Corpuscular Volume 81.9 fL (81.0-99.0); Mean Platelet Volume 10.7 fL (7.4-10.4); Nucleated Red Blood Cells % 0 %; Platelet Count 206 10^3/uL (130-400); Red Blood Cell Count 4.65 10^6/uL (4.20-5.40); Red Cell Dist. Width 13.1 % (11.5-14.5); Urine Albumin Negative (Neg - Trace); Urine Bilirubin Negative (Negative); Urine Character Clear (Clear); Urine Color Yellow; Urine Glucose 4+ (Negative); Urine Ketone Negative (Negative); Urine Leukocyte Negative (Negative); Urine Nitrite Negative (Negative); Urine Occult Blood Negative (Negative); Urine Specific Gravity 1.015 (<1.030); Urine Urobilinogen Negative (Neg - 1+); White Blood Cell Count 6.2 10^3/uL (4.8-10.8)
[2024-11-20 11:34] LABS: INR 0.99; PT 13.4 Sec (11.4-14.6)
[2024-11-20 11:51] LABS: ALT (SGPT) 49 U/L (0-35); AST (SGOT) 30 U/L (14-36); Albumin 4.7 g/dl (3.5-5.0); Alkaline Phosphatase 90 U/L (38-126); Blood Urea Nitrogen 24 mg/dl (7-17); Carbon Dioxide 22 mmol/L (22-30); Chloride 110 mmol/L (98-107); Direct Bilirubin 0.2 mg/dl (0.0-0.4); Estimated Creatinine Clearance 56 ml/min; Glucose 274 mg/dl (70-99); Potassium 4.4 mmol/L (3.5-5.1); Sodium 144 mmol/L (135-145); Total Bilirubin 0.8 mg/dl (0.2-1.3); Total Protein 7.8 g/dl (6.3-8.2); eGFR > 60.00
--- NOTE | 2024-11-20 12:26 | CM ---
CM following for DC planning needs.
Met w/ patient during PATs for planned CABG. Patient shares that she resides alone in a private 2 STH w/ 1 JACKIE. Functionally, patient is indep. w/ ADLs, mobility without the use of any assisted device. Pt. has full bath located on 1st and second
level, bedroom located on 2nd level.
Patient has RX plan and uses [facility] for RX needs.
Reviewed pre and post op routines.
Soap, shower instructions and Cardiac Surgery booklet provided.
Reviewed post op restrictions to include lifting, driving, flying and sternal precautions.
Discussed post op MD appointments, Cardiac Rehab and visit from CT Transitional Care RN.
Plan is for CT Surgery on 11/26.
Anticipated DC plan is for home w/ CT Transitional Care RN.
CM to follow.
[2024-11-26 05:01] VITALS: BP 175/88
[2024-11-26 05:03] VITALS: BP 159/105
[2024-11-26 05:04] VITALS: BP 171/85
[2024-11-26 05:18] VITALS: BMI 25.5
[2024-11-26 05:30] VITALS: BMI 25.9
[2024-11-26] MEDS: PROTONIX 40 MG PO (05:32)
[2024-11-26] MEDS: MAGNESIUM OXIDE 500 MG PO (05:32)
[2024-11-26] MEDS: LOPRESSOR 25 MG PO (05:33)
[2024-11-26] MEDS: BACTROBAN 2% OINTMENT 1 APPLIC NASAL ×2 (05:33→20:52)
[2024-11-26 07:32] LABS: ACT+ - POC 118 Seconds (82-134)
[2024-11-26 08:15] LABS: Urine Albumin 1+ (Neg - Trace); Urine Bilirubin Negative (Negative); Urine Character Clear (Clear); Urine Color Yellow; Urine Glucose 4+ (Negative); Urine Ketone Negative (Negative); Urine Leukocyte 2+ (Negative); Urine Nitrite Positive (Negative); Urine Occult Blood 2+ (Negative); Urine Urobilinogen Negative (Neg - 1+)
--- NOTE | 2024-11-26 08:26 | CM ---
Reviewed chart. Ms. Kurtz is in the operating room today. Prior to admission she resides alone in a two story home with one step to enter. She has a full flight of steps to get to bedroom. She has a full bathroom on each level. Prior to
admission she was independent with ambulation and adls. She states she does not have any DME. She has a prescription plan and uses [facility]. Medical work-up in progress. The discharge plan is to return home with a home visit by the
Transitional Care Nurse when medical stable.
[2024-11-26 08:28] LABS: B.E. - POC -3.7 mmol/L; Glucose - POC 269 mg/dl (70-99); HCO3 - POC 22 mmol/L (21-28); Hematocrit - POC 30 % PCV (37-47); Hemodilution- POC No; Hemoglobin Calculated - POC 10.3; Ionized Calcium - POC 1.19 mmol/L (1.15-1.33); Lactate - POC 0.44 mmol/L (0.36-0.75); O2 Saturation %Calculated-POC 99.8 % (94-98); PCO2 - POC 39 mmHg (35-48); PO2 - POC 257 mmHg (83-108); Potassium - POC 3.9 mmol/L (3.5-5.1); Sodium - POC 140 mmol/L (136-145); Specimen Type - POC Arterial; pH - POC 7.36 (7.35-7.45)
[2024-11-26 08:57] LABS: Urine Amorphous Seen
[2024-11-26 09:03] LABS: Urine Bacteria Many (Negative)
[2024-11-26 09:34] LABS: ACT+ - POC 791 Seconds (82-134)
--- NOTE | 2024-11-26 10:01 | W.PN.CD ---
Addendum entered and electronically signed by Juan Manuel Castro MD 11/26/24 18:20:
69 yo female with CAD, prior inferior STEMI and RCA stenting, is now admitted following CABG. She is weaning from drips and vent. Exam with RRR, no murmurs, no edema. Tele: NSR, no arrhythmia. EKG: NSR, LBBB.
CAD. Plan will be ASA/Plavix.
LBBB. New post op. Monitor tele for more advanced heart block.
Original Note:
Today's Communication / Plan
-
Extubation per CT surgery
Follow telemetry
EKG in am, new LBBB
Impression / Plan
-
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
STEMI and PCI to pRCA, with significant residual CAD presents for CABG
Outpatient [facility]: Dr. Castro
Multi-vessel coronary artery disease/prior STEMI (10/2024) s/p CABG x 4 (CHAN to LAD, GSV to D, GSV to OM1, GSV to RPLB) & [facility]riclip with Dr. Espitia on 11/26/2024
-EKG sinus rhythm with LBBB, new
-Post-CELSO: LVEF 65%, no RWMA, normal RV, mild MR
-On Levophed
-Last dose of Brilinta 11/21/2024
Anemia, chronic, type unknown
-S/P 2 units PRBC in OR
IDDM2 with hyperglycemia
-Chronic, poorly controlled.
-HbA1c 9.5% on 10-25-24; goal <7
Hyperlipidemia
-Chronic, stable.
-LDL 150 during prior hospitalization (10/25/2024)
-Continue atorvastatin 80 mg.
-Goal LDL <55.
Primary hypertension
-Chronic, stable.
-Follow post operatively
Orthostatic hypotension
-Chronic.
-Continue midodrine for orthostatic symptoms.
Physical Exam
Vital Signs/Labs
Vital Signs
Temp Pulse Resp BP Pulse Ox
97.9 F 75 16 171/85 99
11/26/24 05:31 11/26/24 05:31 11/26/24 05:31 11/26/24 05:04 11/26/24 05:31
11/25/24 11/26/24 11/27/24
06:59 06:59 06:59
Actual Weight 70.6 kg
11/20/24 10:50
11/20/24 10:50
PT 13.4 Sec (11.4-14.6) 11/20/24 10:50
INR 0.99 11/20/24 10:50
APTT 28.0 Sec (23.4-35.0) 11/20/24 10:50
Physical Exam
Constitutional: No acute distress and Comfortable
EENT: Anicteric and Moist mucous membranes
Cardiovascular: Rhythm & rate is regular, S1S2 is normal and Rub present
Respiratory: Lungs clear to auscul.
GI: Soft, Distention absent, Flat and Non tender
Neuro/Psych: Other (sedated)
Other: Skin
Data Reviewed
-
Date of Service: November 26, 2024
EKG: Report Reviewed by me
Labs: Labs Reviewed by me
Old Records: Reviewed
[2024-11-26 10:02] LABS: B.E. - POC -6.2 mmol/L; Glucose - POC 269 mg/dl (70-99); HCO3 - POC 20 mmol/L (21-28); Hematocrit - POC 29 % PCV (37-47); Hemodilution- POC No; Ionized Calcium - POC 1.24 mmol/L (1.15-1.33); O2 Saturation %Calculated-POC 99.7 % (94-98); PCO2 - POC 44 mmHg (35-48); PO2 - POC 215 mmHg (83-108); Potassium - POC 3.4 mmol/L (3.5-5.1); Sodium - POC 141 mmol/L (136-145); Specimen Type - POC Arterial; pH - POC 7.28 (7.35-7.45)
[2024-11-26 10:05] LABS: ACT+ - POC 550 Seconds (82-134)
[2024-11-26 10:23] LABS: B.E. - POC 1.1 mmol/L; Glucose - POC 227 mg/dl (70-99); HCO3 - POC 26 mmol/L (21-28); Hematocrit - POC 33 % PCV (37-47); Hemodilution- POC Yes; Hemoglobin Calculated - POC 11.3; Ionized Calcium - POC 1.01 mmol/L (1.15-1.33); Lactate - POC 0.96 mmol/L (0.36-0.75); PCO2 - POC 39 mmHg (35-48); PO2 - POC 367 mmHg (83-108); POC Comment CPB; Potassium - POC 3.5 mmol/L (3.5-5.1); Sodium - POC 140 mmol/L (136-145); Specimen Type - POC Arterial; pH - POC 7.42 (7.35-7.45)
[2024-11-26 10:38] LABS: ACT+ - POC 712 Seconds (82-134)
[2024-11-26 10:58] LABS: B.E. - POC -0.8 mmol/L; Glucose - POC 191 mg/dl (70-99); HCO3 - POC 24 mmol/L (21-28); Hematocrit - POC 22 % PCV (37-47); Hemodilution- POC Yes; Hemoglobin Calculated - POC 7.3; Ionized Calcium - POC 1.02 mmol/L (1.15-1.33); Lactate - POC 1.38 mmol/L (0.36-0.75); PCO2 - POC 37 mmHg (35-48); PO2 - POC 496 mmHg (83-108); POC Comment CPB; Potassium - POC 3.5 mmol/L (3.5-5.1); Sodium - POC 142 mmol/L (136-145); Specimen Type - POC Arterial; pH - POC 7.41 (7.35-7.45)
[2024-11-26 11:07] LABS: ACT+ - POC 572 Seconds (82-134)
[2024-11-26 11:36] LABS: B.E. - POC -1.6 mmol/L; Glucose - POC 147 mg/dl (70-99); HCO3 - POC 23 mmol/L (21-28); Hematocrit - POC 21 % PCV (37-47); Hemodilution- POC Yes; Lactate - POC 2.46 mmol/L (0.36-0.75); O2 Saturation %Calculated-POC 99.9 % (94-98); PCO2 - POC 37 mmHg (35-48); PO2 - POC 347 mmHg (83-108); Potassium - POC 3.5 mmol/L (3.5-5.1); Sodium - POC 143 mmol/L (136-145); Specimen Type - POC Arterial
[2024-11-26 11:41] LABS: ACT+ - POC 507 Seconds (82-134)
[2024-11-26 12:00] LABS: B.E. - POC -3.1 mmol/L; Glucose - POC 127 mg/dl (70-99); HCO3 - POC 22 mmol/L (21-28); Hematocrit - POC 20 % PCV (37-47); Hemodilution- POC Yes; Hemoglobin Calculated - POC 6.7; Ionized Calcium - POC 0.98 mmol/L (1.15-1.33); Lactate - POC 2.45 mmol/L (0.36-0.75); O2 Saturation %Calculated-POC 99.9 % (94-98); PCO2 - POC 40 mmHg (35-48); PO2 - POC 372 mmHg (83-108); POC Comment CPB; Potassium - POC 3.6 mmol/L (3.5-5.1); Sodium - POC 143 mmol/L (136-145); Specimen Type - POC Arterial; pH - POC 7.35 (7.35-7.45)
[2024-11-26 12:02] LABS: ACT+ - POC 558 Seconds (82-134)
[2024-11-26 12:14] LABS: ACT+ - POC 508 Seconds (82-134)
[2024-11-26 12:33] LABS: ACT+ - POC 622 Seconds (82-134)
[2024-11-26 12:44] LABS: Glucose - POC 115 mg/dl (70-99); HCO3 - POC 26 mmol/L (21-28); Hematocrit - POC 21 % PCV (37-47); Hemodilution- POC Yes; Hemoglobin Calculated - POC 7.3; Lactate - POC 2.93 mmol/L (0.36-0.75); PCO2 - POC 49 mmHg (35-48); PO2 - POC 452 mmHg (83-108); POC Comment WARM; Potassium - POC 3.6 mmol/L (3.5-5.1); Sodium - POC 147 mmol/L (136-145); Specimen Type - POC Arterial; pH - POC 7.33 (7.35-7.45)
[2024-11-26 12:49] LABS: ACT+ - POC 140 Seconds (82-134)
[2024-11-26 13:06] LABS: ACT+ - POC 120 Seconds (82-134)
[2024-11-26 13:07] LABS: Glucose - POC 117 mg/dl (70-99); HCO3 - POC 23 mmol/L (21-28); Hematocrit - POC 22 % PCV (37-47); Hemodilution- POC Yes; Hemoglobin Calculated - POC 7.4; Ionized Calcium - POC 1.06 mmol/L (1.15-1.33); Lactate - POC 3.29 mmol/L (0.36-0.75); O2 Saturation %Calculated-POC 99.8 % (94-98); PCO2 - POC 37 mmHg (35-48); PO2 - POC 232 mmHg (83-108); POC Comment POST; Potassium - POC 3.4 mmol/L (3.5-5.1); Sodium - POC 147 mmol/L (136-145); Specimen Type - POC Arterial; pH - POC 7.39 (7.35-7.45)
[2024-11-26] MEDS: TYLENOL PO (13:09)
--- NOTE | 2024-11-26 13:20 | CON.INTV ---
Consultation
Consultation Request
Date/Time Consultation Requested: 11/26/2024 - 1246
Date/Time Consultation Performed: 11/26/2024 - 1304
Requesting Provider: VICTORIANO Groves
Performing Provider: Dr. Moreno
Reason for Consultation: s/p CABG
Medical History
-
Chief Complaint: Elective CABG
History of Present Illness:
69-year-old female former light tobacco smoker (quit >45 years ago with 2.5-pack-year history) with a past medical history of multivessel CAD with history of inferior wall STEMI s/p PCI with LITTLE to pRCA (10/24/2024), hyperlipidemia, hypertension,
orthostatic hypotension on midodrine, depression, chronic HFrEF and history of uterine tumor s/p radical hysterectomy (2013) who presents for elective CABG. Patient known to cardiothoracic surgery service with last visit on 11/13/2024 with
Omkar. On 10/24/2024, patient underwent a left heart catheterization showing multivessel CAD involving the LAD, OM1, RCA, and posterolateral branch. Because patient had presented with a STEMI of the inferior wall at that time, she underwent PCI of
a 90% proximal RCA lesion with LITTLE placed. Given her multivessel disease, she was recommended to obtain surgical revascularization which the patient agreed to. Today patient underwent CABG x 4 with left atrial appendage exclusion with a 35mm
atrial clip. Patient tolerated the procedure well with no complications, and was transferred to the CVICU with bilateral pleural chest tubes + mediastinal chest tubes x 2, on Cardene drip at 3 mg/hr, insulin drip at 0.5 units/hr and Precedex at 0.5
mcg/kg/hour. House Rn service is now consulted for additional management/recommendations.
When I saw the patient, she was resting in bed, intubated on SIMV at 12/450/40%/5 with PIP 22 cmH2O, VTe 436 mL and breathing at 12 breaths/min. Currently on insulin drip at 2.6 units/hr. BP via A-line 129/62, heart rate 81 and saturating 100%.
PMHx: Multivessel CAD, DM type II, history of inferior wall STEMI s/p PCI with LITTLE, hyperlipidemia, history of uterine tumor s/p radical hysterectomy, orthostatic hypotension on midodrine, depression, chronic HFrEF, hypertension
PSHx: ROHAN�BSO (2013), breast lumpectomy (1978 � benign), proximal right coronary artery stenting (10/24/2024), tonsillectomy
Past Medical History
Past Medical History: Other (Above as per HPI)
Past Surgical History: Other (Above as per HPI)
Social History
Tobacco: Former Smoker (Light former tobacco smoker, smoked 1 PPD x 2-3 years, quit >45 years ago)
Alcohol: None
Drug: None
Personal: Other ()
Employment: Retired ([employer])
Family History
Family History: CAD (Father (history of OR)), Cancer (Father: Bladder cancer) and Other (Father: Parkinson's disease, stroke, history of skin cancer; Mother: Alzheimer's sees)
Allergies / Home Medications
Allergies
Allergy/AdvReac Type Severity Reaction Status Date / Time
No Known Allergies Allergy Verified 11/16/24 12:40
Home Medications
�Medication �Instructions �Recorded �Confirmed �Last Taken �Type
duloxetine 30 mg capsule,delayed 30 mg PO HS Mental Health/Anxiety 10/24/24 11/26/24 11/24/24 History
release (Cymbalta)
insulin lispro 100 unit/mL 6 unit SC AC Diabetes 10/24/24 11/26/24 11/25/24 History
subcutaneous pen (Humalog KwikPen
(U-100) Insulin)
midodrine 2.5 mg tablet 2.5 mg PO TID Blood Pressure 10/24/24 11/26/24 11/25/24 History
aspirin 81 mg chewable tablet 81 mg PO DAILY Heart 11/07/24 11/26/24 11/21/24 History
Disease/Condition
atorvastatin 80 mg tablet 80 mg PO HS High Cholesterol 11/07/24 11/26/24 11/24/24 History
empagliflozin 10 mg tablet 10 mg PO QPM Diabetes 11/07/24 11/26/24 11/23/24 History
(Jardiance)
metformin 500 mg tablet 500 mg PO BID@0800,1700 Diabetes 11/07/24 11/26/24 11/24/24 History
ticagrelor 90 mg tablet (Brilinta) 90 mg PO BID Heart 11/07/24 11/26/24 11/21/24 History
Disease/Condition
metoprolol succinate 50 mg 50 mg PO DAILY 30 days #30 tabs 11/09/24 11/26/24 11/25/24 Rx
tablet,extended release 24 hr
nitroglycerin 0.4 mg sublingual 0.4 mg sublingual [id number] PRN 11/09/24 11/26/24 Unknown Rx
tablet Angina (chest/shoulder pain) #30
tabs
insulin glargine 100 unit/mL (3 12 unit SC HS 11/16/24 11/26/24 11/24/24 History
mL) subcutaneous pen
Review of Systems
-
Unable to Obtain full review of systems at this time due to: Patient Intubation
Vitals / Labs / Diagnostic Testing
Vital Signs
Temp Pulse Resp BP Pulse Ox
97.9 F 75 16 171/85 99
11/26/24 05:31 11/26/24 05:31 11/26/24 05:31 11/26/24 05:04 11/26/24 05:31
Diagnostic Testing:
Physical Exam
-
HEENT: Normocephalic, Anicteric and Other (ETT in place)
Cardiovascular: S1/S2 and Peripheral Edema (negative)
Respiratory: Wheeze (negative), Rales (negative), Rhonchi (negative), Non-Labored Respirations and Other (Mechanical breath sounds heard bilaterally)
GI: Soft, Non Distended, Non Tender and Normal Bowel Sounds
Neurology: Tremors (negative) and Other (Sedated although easily arousable and following commands)
Skin: Warm and Dry
General: Respiratory Distress (negative), Comfortable, Fever (negative) and Chills (negative)
Assessment
-
Assessment: 69-year-old female former light tobacco smoker (quit >45 years ago with 2.5-pack-year history) with a past medical history of multivessel CAD with history of inferior wall STEMI s/p PCI with LITTLE to pRCA (10/24/2024), hyperlipidemia,
hypertension, orthostatic hypotension on midodrine, depression, chronic HFrEF and history of uterine tumor s/p radical hysterectomy (2013) who presents for elective CABG. Patient known to cardiothoracic surgery service with last visit on 11/13/[address] Espitia. On 10/24/2024, patient underwent a left heart catheterization showing multivessel CAD involving the LAD, OM1, RCA, and posterolateral branch. Because patient had presented with a STEMI of the inferior wall at that time, she
underwent PCI of a 90% proximal RCA lesion with LITTLE placed. Given her multivessel disease, she was recommended to obtain surgical revascularization which the patient agreed to. On 11/26/2024, patient underwent CABG x 4 with left atrial appendage
exclusion with a 35mm AtriClip. Patient tolerated the procedure well with no complications, and was transferred to the CVICU. House Rn service consulted for additional management/recommendations
Chronic conditions TUNNEL MINER: Multivessel CAD, DM type II, history of inferior wall STEMI s/p PCI with LITTLE, hyperlipidemia, history of uterine tumor s/p radical hysterectomy, orthostatic hypotension on midodrine, depression, chronic HFpEF, hypertension
Impression:
#Multivessel CAD with recent inferior wall STEMI s/p PCI/LITTLE to proximal RCA (10/24/2024) now s/p CABG x 4 with left atrial appendage exclusion with 35mm AtriClip (POD #0)
#Acute anemia due to above
#Acute thrombocytopenia due to above
#Hypocalcemia
#DM type II c/b hyperglycemia
#Chronic HFpEF
#Hx of HTN/HLD
#Orthostatic hypotension on midodrine
Plan:
Ventilator settings reviewed
FiO2 will be weaned to maintain SpO2 >90-94%
Minute ventilation will be adjusted
Arterial blood gases will be monitored
Spontaneous breathing trial will be attempted with hopeful extubation after anesthesia/sedation wear off
prn nebulized bronchodilators - not currently bronchospastic
Pulmonary artery catheter parameters will be followed
Pressors/antihypertensive/inotropes/diuretics will be provided as needed
Maintain MAP>65
Replete electrolytes with K>4, Mg>2
Continue aspirin + Plavix
Continue high intensity statin
PO amiodarone
Monitor chest tube output
Monitor hemoglobin
Monitor platelet count and coags
Transfuse blood products as needed to maintain Hb>7g/dL, plt>50k (given post-operative status)
CT surgery managing chest tubes
Monitor blood sugar to maintain euglycemia with goal BG 110-140
Insulin drip per protocol
Aspiration precautions
VAP prevention protocol
DVT prophylaxis
Early nutrition
Early mobilization
Critical care statement: A total of 41 minutes of critical care time was provided for this patient today. This includes management of ventilator, spontaneous breathing trial, arterial blood gases, pressors, of unstable vital signs, evaluation of the
patient at bedside, reviewing the patient's pertinent medical records including radiographs, microbiology, laboratory evaluations, and discussion with primary team and critical care nursing.
--- NOTE | 2024-11-26 13:24 | W.CVOR.SURPR ---
CVOR Surgeon Immed Pre Op
-
I have examined this patient prior to performance of the scheduled procedure.
The patient's condition is unchanged from the time of the dictated/written History and
Physical and the patient is able to undergo the scheduled procedure.
--- NOTE | 2024-11-26 13:24 | W.IMMPOSTOP ---
Addendum entered and electronically signed by Joseluis Espitia MD 11/26/24 15:18:
[id number]
Original Note:
Surgical Immed Post Op Note
-
CARDIAC SURGERY OPERATIVE NOTE:
Preoperative Dx:
MVCAD
S/P recent iSTEMI w/ PCI/stent to proximal RCA
DM
Postoperative Dx:
Same
Procedures:
1) Median sternotomy
2) Takedown of CHAN (narrow pedicle)
3) Endoscopic harvest/prep of RLE GSV
4) CABG x 4 (CHAN to LAD, GSV to D, GSV to OM1, GSV to RPLB)
5) ELAA (35mm AtriClip)
Surgeon:
Joseluis Espitia M.D.
Assistants:
Eneida Miller-Amalia; first aid teacher throughout
Kailey Morrow P.A.-C.; endoscopic harvest/prep of RLE GSV; [id number] sternotomy closure
Anesthesia:
Chaz Jc M.D. and Ivania Valentin, AmaliaR.N.A.
Perfusion:
Amalia MccoyC.P.; XC: 100min, CPB 151min
Findings:
Pt. w/ difficult to control HTN (SBP 220 when 1st in OR - controlled; MAPs to 160s upon institution of CPB - , CELSO assessment of aorta completed - benign - controlled - CPB re-instituted)
CHAN was a healthy conduit w/ very brisk blood flow; ELD 3.00mm
GSV was healthy conduit w/ normal wall thickness and ELD 3.5mm
LAD was not visible on the epicardial surface except for its diminutive apical segment. Vessel identified under epicardial adipose at approximately the midpoint of this vessel; ELD 2.75mm - healthy funes
D was visible on the epicardial surface, scattered calcifications, ELD 2.5mm
OM1 was visible on the epicardial surface, scattered calcifications, ELD 2.25mm
RPLB was visible on the epicardial surface, scattered calcificaitons, ELD 2.5mm
Very good flow in all grafts on intraoperative transit-time U/S flow probe assessment
TONNY was small w/ windsock morphology, successfully occluded at base w/ 35mm AtriClip - confirmed w/ CELSO
Post-CELSO: LVEF 65%, no RWMA, normal RV, mild MR
Transfusions:
2U PRBC (Hgb 10.3 on arrival in OR)
Implants:
AtriClip 35mm (LOT [id number])
CT x 4 (B/L pleural, inferior mediastinal, superior mediastinal)
Sternal wires x 8
Sternal 'X' plate w/ 8 - 10mm screws
GERI drain placed in RLE GSV harvest bed
Complications:
None
Condition:
80 sinus (0.4/-0.5); 108/57; CVP 5; 100%
GTTS: nicardipine 3, insulin 0.5, precedex 0.5
Stable/guarded to CVICU
[2024-11-26 14:07] LABS: Glucose - Point of Care 137 mg/dl (70-99)
--- NOTE | 2024-11-26 14:08 | W.PN.UPDATE ---
Update Note
Progress Note Update
69 year old female was electively admitted 11/26/24 for CABG. Patient had inferior STEMI/3VCAD with LITTLE-RCA on 10/24/24.
IV fluids: 1600
U.O.:� 1000
Blood:� 2PRBC
Wires:� none
Drips: Levophed @ 1, Precedex @ 0.4
�
NEURO: sedated pupils +2mm B/L
RESP: #8OT @24cm> 450/40%/14/. Lungs clear B/L. 2 mediastinal (30cc on arrival) and R/L pleural (110cc on arrival) chest tubes to -20cm suction. Sanguineous drainage
CV: RRR +S1, S2, no S3, no�rub, no murmur. Dermabond to median sternotomy. RIJ w/Slik
ABD: round, soft, no BS
EXT: no edema, +2/4 DP pulses B/L, no femoral bruit, RLE CHRISTINA wrap intact; left radial A-line intact
: Hernandez with clear yellow urine
�
A/P: POD #0 s/p CABG x 4 (CHAN to LAD, GSV to D, GSV to OM1, GSV to RPLB), ELAA (35mm AtriClip)
- wean and extubate
# CAD with recent IWSTEMI/LITTLE-RCA
- was on Brilinta
- resume ASA, Plavix, statin, beta anum
- possible transition to Brilinta
�
# acute surgical blood loss anemia-expected
- trend CBC
- monitor chest tube output
# Anxiety
- resume Cymbalta when tolerating oral
�
# T2DM (A1C 9.5)
- insulin infusion x 48h
- on Glargine 12 u HS, lispro 6u TID,Jardiance 10mg HS, MFM 500mg BID
- DMNP to follow
[2024-11-26 14:18] LABS: B.E. -3.5 mmol/L; HCO3 21.4 mmol/L (21-28); Ionized Calcium 1.11 mMOL/L (1.15-1.33); O2 Saturation % 99.9 % (94-98); PCO2 37 mmHg (32-35); PO2 146 mmHg (83-108); Potassium 3.9 mMOL/L (3.5-5.1); Sodium 141 mMOL/L (136-145); pH 7.37 (7.35-7.45)
[2024-11-26 14:28] LABS: INR 1.53; PT 18.7 Sec (11.4-14.6)
[2024-11-26 14:29] LABS: APTT 30.5 Sec (23.4-35.0)
--- NOTE | 2024-11-26 14:30 | PTCARENOTE ---
Patient received from CVOR s/p CABG x 4/LAAL. NSR via cm, SaO2 @ 100% on ventilator, FiO2 titrated to 40%. RIJ Cordis w/CVP transduced, L radial arterial lines present - leveled, flushed, and calibrated w/good waveforms returned. Mediastinal chest
tubes x 2, Y-connected to one pleurevac; L and R chest tubes Y-connected to separate pleurevac - both chambers placed to -20cm suction w/no air leaks noted. RLE GERI present w/small amount sanguinous drainage, reconstituted. Hernandez catheter to gravity.
All procedural sites stable. Core temp 97.3, Boone Hugger applied. Labs drawn, EKG performed, pcxr obtained. See work list for full assessment, interventions performed, and intravenous infusions and titrations.
[2024-11-26 14:31] LABS: Hematocrit 28.1 % (37.0-47.0); Hemoglobin 10.1 g/dL (12.0-16.0); Platelet Count 104 10^3/uL (130-400)
[2024-11-26] MEDS: KCL 50 IV ×2 (14:35→17:06)
[2024-11-26] MEDS: ANCEF 10 IV ×2 (14:36→14:37)
[2024-11-26] MEDS: NSS 500 IV (14:36)
[2024-11-26] MEDS: LR 250 ML IV ×2 (14:51→18:59)
[2024-11-26] MEDS: CALCIUM GLUCONATE 100 IV (14:54)
[2024-11-26 15:00] LABS: Glucose - Point of Care 220 mg/dl (70-99)
[2024-11-26 15:23] VITALS: BP 96/60
[2024-11-26] MEDS: NOVOLIN R INSULIN INFUSION 100 IV (15:31)
[2024-11-26] MEDS: PACERONE PO (15:31)
[2024-11-26] MEDS: OFIRMEV 100 IV (15:37)
[2024-11-26 16:01] LABS: Glucose - Point of Care 183 mg/dl (70-99)
[2024-11-26 16:48] LABS: Blood Urea Nitrogen 22 mg/dl (7-17); Estimated Creatinine Clearance 70 ml/min; Glucose 132 mg/dl (70-99); Magnesium 3.1 mg/dl (1.6-2.3)
[2024-11-26 17:00] LABS: Glucose - Point of Care 159 mg/dl (70-99)
[2024-11-26] MEDS: DILAUDID 0.25 MG IV ×2 (17:51→22:38)
[2024-11-26 17:58] LABS: Glucose - Point of Care 155 mg/dl (70-99)
[2024-11-26 18:08] LABS: Hematocrit 28.7 % (37.0-47.0); Hemoglobin 10.3 g/dL (12.0-16.0); Platelet Count 109 10^3/uL (130-400)
[2024-11-26] MEDS: TORADOL 15 MG IV (18:18)
[2024-11-26 18:23] LABS: B.E. -3.9 mmol/L; HCO3 21.6 mmol/L (21-28); Ionized Calcium 1.25 mMOL/L (1.15-1.33); PCO2 40 mmHg (32-35); PO2 170 mmHg (83-108); Potassium 4.6 mMOL/L (3.5-5.1); pH 7.34 (7.35-7.45)
[2024-11-26 19:04] VITALS: BP_SYST 131
[2024-11-26 19:06] LABS: Glucose - Point of Care 123 mg/dl (70-99)
[2024-11-26] MEDS: ASPIRIN 300 MG RECTAL (19:10)
[2024-11-26 19:59] VITALS: BP 175/91
[2024-11-26] MEDS: ANCEF 5 IV (20:51)
[2024-11-26] MEDS: SENOKOT-S PO (20:52)
--- NOTE | 2024-11-26 21:05 | PTCARENOTE ---
Report received from Sherie GODINEZ at bedside. Pt remains on ventilator, drowsy. Will awaken to voice. Nods appropriately to questions. Sales Order Processor and wiggles toes to command with equal strength. Pt on SIMV, 40% FiO2, rate 12, TV 450, Peep 5, PS 5. BBS
present. Diminished to B bases. ETT #8, 22 R lip. Sats 100%. Pt more awake therefore CPAP trial started at 2014. (CPAP, peep 5 , PS 5, FiO2 40%) Audible heart tones. +Pericardial rub. Pt in SR with BBB. Levo gtt on briefly to maintain MAP > 65 (see
flowsheet intervention). Off at 1945. Cardene gtt started at 1950 for elevated BP: MAP > 90 and SBP 150-180's. (See VS). Cardene gtt titrated to 5 mg/hr. Ed, PA notified of HTN, gtts. Cardene titrated to off at [address] x 4, all
to -20 cm suction. For pulse and wound assessments, see flowsheets. Belly soft, nontender. Hypoactive bs x 4. Hernandez to drain, clear yellow urine. Hourly and prn CT outputs and hourly urine outputs recorded. Glycemic protocol followed. Ongoing plan
of care.
[2024-11-26 21:06] LABS: Glucose - Point of Care 98 mg/dl (70-99)
[2024-11-26 21:07] LABS: HCO3 20.8 mmol/L (21-28); Ionized Calcium 1.21 mMOL/L (1.15-1.33); O2 Saturation % 99.7 % (94-98); PCO2 36 mmHg (32-35); PO2 130 mmHg (83-108); Potassium 4.3 mMOL/L (3.5-5.1); pH 7.37 (7.35-7.45)
[2024-11-26] MEDS: ZOFRAN 4 MG IV (21:31)
[2024-11-26] MEDS: SODIUM BICARBONATE 50 MEQ IV (21:34)
--- NOTE | 2024-11-26 22:00 | RESPNOTE ---
PT was successfully extubated at this time following a weaning trial and a subsequent ABG. PT was placed on a 6 L n/c and voiced her name once the ETT was removed. PT was suctioned pre/post extubation and vital are stable. PT was educated on the
importance of deep breathing over the coming days and performed several I/S maneuvers, the best being 750 mls. The vent was pulled and the PT doesnt appear to be in any distress, will continue to monitor resp status.
--- NOTE | 2024-11-26 22:45 | PTCARENOTE ---
CPAP ABG drawn. Ed, PA aware of results. Sodium Bicarb 50 meQ IV given to pt per order of PA. Pt also c/o nausea. Zofran 4 mg IV given. Pt extubated to 6L/NC at 2200 per order and with RT, Doreen. No stridor present after extubation. BBS present.
Sats 100% on 6L/NC. IS done with pt. Peak IS 750 mls. Swab with mouthwash provided to pt post-extubation. Dilaudid 0.25 mg IV given at 2238 for 5/10 sternal, incisional pain. Ongoing plan of care.
[2024-11-26 23:27] LABS: Glucose - Point of Care 143 mg/dl (70-99)
[2024-11-27] VITALS (38 sets, daily range): BP systolic 78–135; BP diastolic 41–67; PULSE 79; O2SAT 98–99; BMI 27.7
[2024-11-27] MEDS: LIPITOR 80 MG PO ×2 (00:38→23:36)
[2024-11-27] MEDS: TYLENOL 1000 MG PO ×4 (00:38→23:46)
[2024-11-27] MEDS: PACERONE 200 MG PO ×4 (00:38→23:36)
[2024-11-27 01:15] LABS: Glucose - Point of Care 111 mg/dl (70-99)
--- NOTE | 2024-11-27 02:00 | PTCARENOTE ---
Pt remains in SR wit BBB. O2 titrated to 4L/NC. Sats 100%. Normotensive. Cardene and Levo gtts remain off. Pt c/o feeling 'sleepy'. No change in neuro assessment. Pt received Tylenol 1 GM po (see AUG). Gabapentin held per order PA. Pt states she has
become excessively tired with gabapentin in past (post-shingles), and prefers not to be on this medication. Information relayed to Ed, PA. Glycemic protocol maintained.
--- NOTE | 2024-11-27 03:16 | W.PN.CT ---
Today's Communication / Plan
-
Plan:
-No major issues overnight. Hemodynamically and neurologically intact
-Successfully extubated last night 11/26 @ 2200
-Was requiring Levophed and Cardene immediately postop, weaned off overnight, remains on insulin gtt per protocol
-Will keep insulin gtt until tomorrow since she's a diabetic, will consult Diabetes education/management, A1C 9.5
-Monitor chest tube drainage: 2meds 95/225, R/L pleurals 135/415
-Cont. current meds (ASA, Plavix, Lipitor, Amiodarone, BB if bp permits)
-Mg 2.7, will place mag oxide on hold
-D/C'd a-line and SLIC @ 0430
-Will D/C Hernandez catheter @ 0600
-Tele phase tomorrow when off Insulin gtt
-Encourage use of IS
-Wean off of O2 as tolerated
-OOB into chair
-Ambulate
Assessment / Plan
-
Assessment:
-S/P Median sternotomy/CABG x 4 (CHAN to LAD, GSV to D, GSV to OM1, GSV to RPLB)Endoscopic harvest/prep of RLE GSV/ELAA (35mm AtriClip), by Dr. Espitia, 11/26/24, pod#1
-Multivessel coronary artery disease
-Hx inferior wall ST-elevation myocardial S/p PCI with LITTLE to prox. RCA, 10/24/24
-LVEF 65-70% postop per intraop CELSO
-Mild central MR
-Trace TR
-T2DM (hgb A1C 9.5)
-HTN
-Hyperlipidemia
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
-Anxiety/Depression
-Orthostasis/Vertigo
-S/P ROHAN-BSO, 2013
-S/p Breast lumpectomy, 1978 (benign)
-S/P Tonsillectomy
-Acute postop blood loss/Anemia (transfused 2u PRBCs)
-Acute postop thrombocytopenia (stable without active bleed)
-Acute postop atelectasis
-Acute postop suspected UTI (U/A looks dirty)
-Acute postop hypervolemia with subsequent hypervolemia
Discussed patient care with: Cardiology, Nursing, Respiratory Therapy, Pharmacy and Care Team
Subjective
Procedure
S/P Median sternotomy/CABG x 4 (CHAN to LAD, GSV to D, GSV to OM1, GSV to RPLB)Endoscopic harvest/prep of RLE GSV/ELAA (35mm AtriClip), by Dr. Espitia, 11/26/24
-
Date of Service: November 27, 2024
Pt c/o incisional pain, otherwise feels well
Objective Data
-
PT 18.7 Sec (11.4-14.6) H 11/26/24 14:03
INR 1.53 11/26/24 14:03
APTT 30.5 Sec (23.4-35.0) 11/26/24 14:03
Vital Signs
Vital Signs
Temp Pulse Resp BP Pulse Ox
99 F 79 11 175/91 100
11/27/24 01:00 11/27/24 02:30 11/27/24 02:30 11/26/24 19:59 11/27/24 02:30
CT Intake/Output/Weight
11/26/24 11/26/24 11/27/24
06:59 18:59 06:59
Intake Total 560.0 / 990.1 430.1 / 990.1
Output Total 880 / 1460 580 / 1460
Balance -320.0 / -469.9 -149.9 / -469.9
SaO2: 98 (2L)
Physical Exam
-
General: Awake, Oriented and AOx3
Cardiovascular: Regular rate & rhythm, No Murmurs, No Rub and No Gallop
Respiratory: Decreased Breath Sounds (at bases, otherwise clear)
Sternum: Stable
Incision: Clean, Dry, Intact and Dressing Intact
Extremities: Other (+trace edema)
Data Reviewed
-
Lab Results: Results Reviewed
Medications: Active Meds Reviewed
Chest X-Ray: Report Reviewed and Image Reviewed
ECG: Report Reviewed and Image Reviewed
[2024-11-27 03:26] LABS: Glucose - Point of Care 94 mg/dl (70-99)
[2024-11-27 03:35] LABS: Hematocrit 26.8 % (37.0-47.0); Hemoglobin 9.3 g/dL (12.0-16.0); Mean Corp Hgb Conc. 34.7 g/dL (33.0-37.0); Mean Corpuscular Hgb 29.1 pg (27.0-31.0); Mean Corpuscular Volume 83.8 fL (81.0-99.0); Mean Platelet Volume 11.5 fL (7.4-10.4); Platelet Count 120 10^3/uL (130-400); Red Cell Dist. Width 13.6 % (11.5-14.5); White Blood Cell Count 12.1 10^3/uL (4.8-10.8)
[2024-11-27 03:49] LABS: Blood Urea Nitrogen 26 mg/dl (7-17); Calcium 8.4 mg/dl (8.4-10.2); Carbon Dioxide 23 mmol/L (22-30); Chloride 120 mmol/L (98-107); Estimated Creatinine Clearance 61 ml/min; Glucose 91 mg/dl (70-99); Magnesium 2.7 mg/dl (1.6-2.3); Sodium 147 mmol/L (135-145); eGFR > 60.00
[2024-11-27] MEDS: ANCEF 5 IV ×2 (03:59→12:00)
[2024-11-27] MEDS: CALCIUM GLUCONATE 100 IV (04:18)
[2024-11-27] MEDS: REGLAN 10 MG IV ×3 (04:53→19:01)
[2024-11-27] MEDS: TORADOL 15 MG IV ×2 (04:53→14:00)
[2024-11-27] MEDS: MYLICON 80 MG PO (04:54)
--- NOTE | 2024-11-27 05:00 | PTCARENOTE ---
Addendum entered by Wili Florez RN 11/27/24 20:27:
Respiratory rate saved in [employer] as 3 is erroneous data. At bedside with pt and she is breathing 12-14 br/min.
Addendum entered by Wili Florez RN 11/27/24 05:11:
Ca Gluconate 2 GM IV given per order of PA.
Original Note:
Pt passing flatus, attempted BM on BSC. With movement of bed, pt c/o dizziness, nausea. Pt unable to pass BM. C/O nausea. PA aware. Continued dizziness with repositioning, movement in bed. PA aware. Also c/o severe pain to sternal incision. Reglan
10 mg IV given for nausea. Toradol 15 mg IV for pain given. Simethicone 80 mg po given per order. A-line d/c'ed per order and protocol. REMAINS IN sr. sATS 100% ON 3l/nc.
[2024-11-27 05:03] LABS: Glucose - Point of Care 120 mg/dl (70-99)
[2024-11-27 06:55] LABS: Glucose - Point of Care 109 mg/dl (70-99)
--- NOTE | 2024-11-27 07:06 | PTCARENOTE ---
PARKER cath d/c'ed at 0630. Hernandez d/c'ed at 0645. Bed weight done. Report to HERBERT Rehman this am.
--- NOTE | 2024-11-27 07:36 | W.PN.ANS.POP ---
Anesthesia Post Operative
- Anesthesia Post Op Note
Vital Signs Stable-See Nursing Note: Yes
Airway Patent: Yes
Adequate Pain Control: Yes
Change in Mental Status: No
Current Postoperative Nausea & Vomiting: No
Anesthesia Complications: No
General Anesthetic Recall: No
Unplanned Admission: No
Post Op Hydration Adequate: Yes
--- NOTE | 2024-11-27 08:06 | PTCARENOTE ---
Patient received from rn shift mgr resting in bed, sleepy but arousable and appropriate, states pain controlled at this time. NSR via cm, SaO2 @ 100% on 3lnc. RIJ Cordis w/kvo infusing. Mediastinal chest tubes x 2, L and R pleural chest tubes - both
sets to separate collection chambers, no leaks or crepitus noted on -20cm suction. RLE GERI w/scant drainage, reconstituted. Insulin drip infusing peripherally, titrating per glycemic protocol. All procedural sites stable. Patient updated to plan of
care for the day, in agreement. See worklist for full assessment and interventions performed.
--- NOTE | 2024-11-27 08:13 | W.PN.INTV ---
Today's Communication / Plan
Recommendations
Up OOB as tolerated
Continue insulin drip per protocol with goal BG 110�140
Pain control
Encourage incentive spirometer
Wean down supplemental O2 while keeping SpO2 >90-94%
Cardiac rehab consult
Continue CVICU level of care; once weaned off insulin drip and downgraded to CVICU�telemetry status, then we will sign off at that time.
Assessment
-
Assessment: 69-year-old female former light tobacco smoker (quit >45 years ago with 2.5-pack-year history) with a past medical history of multivessel CAD with history of inferior wall STEMI s/p PCI with LITTLE to pRCA (10/24/2024), hyperlipidemia,
hypertension, orthostatic hypotension on midodrine, depression, chronic HFrEF and history of uterine tumor s/p radical hysterectomy (2013) who presents for elective CABG. Patient known to cardiothoracic surgery service with last visit on 11/13/[address] Espitia. On 10/24/2024, patient underwent a left heart catheterization showing multivessel CAD involving the LAD, OM1, RCA, and posterolateral branch. Because patient had presented with a STEMI of the inferior wall at that time, she
underwent PCI of a 90% proximal RCA lesion with LITTLE placed. Given her multivessel disease, she was recommended to obtain surgical revascularization which the patient agreed to. On 11/26/2024, patient underwent CABG x 4 with left atrial appendage
exclusion with a 35mm AtriClip. Patient tolerated the procedure well with no complications, and was transferred to the CVICU. Mini Shifter service consulted for additional management/recommendations
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
Impression:
#Multivessel CAD with recent inferior wall STEMI s/p PCI/LITTLE to proximal RCA (10/24/2024) now s/p CABG x 4 with left atrial appendage exclusion with 35mm AtriClip (POD #1)
#Acute anemia due to above
#Acute thrombocytopenia due to above
#Hypocalcemia
#DM type II c/b hyperglycemia
#Chronic HFpEF
#Hx of HTN/HLD
#Orthostatic hypotension on midodrine
Plan:
Patient successfully extubated on 11/26/2024, and is currently breathing comfortably on 2 L/min nasal cannula saturating 100%
Continue to wean down supplemental O2 flow rate to maintain SpO2 >90-94%
prn nebulized bronchodilators - not currently bronchospastic
Encourage incentive spirometer q1hr while awake
Pressors/antihypertensive/inotropes/diuretics will be provided as needed
Maintain MAP>65
Replete electrolytes with K>4, Mg>2
Continue aspirin + Plavix
Continue high intensity statin
PO amiodarone
Monitor chest tube output (mediastinal chest tubes x 2 + bilateral pleural chest tubes)
Monitor hemoglobin
Monitor platelet count and coags
Transfuse blood products as needed to maintain Hb>7g/dL, plt>50k (given post-operative status)
CT surgery managing chest tubes
Monitor blood sugar to maintain euglycemia with goal BG 110-140; A1C: 9.5 from 10/25/2024
Insulin drip per protocol
Aspiration precautions
DVT prophylaxis
Early nutrition
Early mobilization
Continue CVICU level of care; once weaned off insulin drip and downgraded to CVICU�telemetry status, then we will sign off at that time.
Critical care statement: A total of 38 minutes of critical care time was provided for this patient today. This includes management of ventilator, spontaneous breathing trial, arterial blood gases, pressors, of unstable vital signs, evaluation of the
patient at bedside, reviewing the patient's pertinent medical records including radiographs, microbiology, laboratory evaluations, and discussion with primary team and critical care nursing.
Subjective Dataa
Subjective Data
Date of Service:
Date of Service: November 27, 2024
Chief Complaint: Mini Shifter Follow Up
Subjective:
Patient seen today at bedside. Currently on insulin drip at 0.6 units/hr. Her daughter, Shannen, is present at bedside and all questions were answered. The patient mainly feels very fatigued and tired. Heart rate 83, BP via NIBP: 105/54 and
currently saturating 100% on 2 L/min nasal cannula. Patient denies chest pain, SOB, GIL, nausea, fevers or chills.
Review of Systems
General: Other (Negative unless mentioned above)
Objective Data
Data Reviewed
Vital Signs / I&O / Oxygen:
Vital Signs
Temp Pulse Resp BP Pulse Ox
98.4 F 78 13 93/48 100
11/27/24 08:00 11/27/24 08:16 11/27/24 08:00 11/27/24 08:16 11/27/24 08:01
Intake and Output
11/26/24 11/27/24 11/28/24
06:59 06:59 06:59
Intake Total 1088.2 / 1088.2 262 / 262
Output Total 1750 / 1750 30 / 30
Balance -661.8 / -661.8 232 / 232
SaO2 [CPAP] 100
SaO2 [SIMV] 100
SaO2 100
Nasal Cannula flow liters per 2
minute
Physical Exam
General: Respiratory Distress (negative), Comfortable, Chills (negative) and Sweats (negative)
HEENT: Normocephalic and Anicteric
Cardiovascular: S1-S2, Rub and Peripheral Edema (negative)
Respiratory: Wheeze (negative), Crackles (negative), Rhonchi (negative), Non-Labored Respirations, Stridor (negative) and Chest Tube (mediastinal chest tubes x 2 + bilateral pleural chest tubes)
GI: Soft, Non Distended, Non Tender and Normal Bowel Sounds
Neurology: Tremors (negative) and Other (Drowsy, but otherwise easily awakened by voice, following all commands without confusion)
Skin: Warm, Dry, Cyanosis (negative) and Jaundice (negative)
Labs/Micro/Reports
Lab Data
11/27/24 03:08
11/27/24 03:08
Laboratory Results
11/26/24 11/26/24 11/26/24
14:03 18:15 21:00
PT 18.7 H
INR 1.53
APTT 30.5
pH 7.37 7.34 L 7.37
pCO2 37 H 40 H 36 H
pO2 146 H 170 H 130 H
HCO3 21.4 21.6 20.8 L
O2 Delivery Level
[2024-11-27] MEDS: ProAmatine 2.5 MG PO ×2 (08:15→10:07)
[2024-11-27] MEDS: SENOKOT-S 1 TABLET PO (08:15)
[2024-11-27] MEDS: BACTROBAN 2% OINTMENT 1 APPLIC NASAL ×2 (08:15→19:59)
[2024-11-27] MEDS: PROTONIX 40 MG PO (08:16)
[2024-11-27] MEDS: LOW STRENGTH ASPIRIN 81 MG PO (08:16)
[2024-11-27] MEDS: PLAVIX 75 MG PO (08:16)
--- NOTE | 2024-11-27 09:16 | PN.DE.MGMTRT ---
Insulin Management
- -
11/27/2024 Diabetes Management Consult
Patient admitted 11/26 for OR for CABG x 4. PMH diabetes, HTN, mini stroke, STEMI, hysterectomy. Prior to admission was taking lantus 12 units @ hs, Humalog 6 units AC, Jardiance 10 mg Pm, metformin 500 mg BID. A1C from 10/25 9.5%, cr today .8,
eGFR > 60.
POD 1 patient is awake alert and oriented able to discuss diabetes care. Has Lucille 3 for glucose monitor.
Will continue glycemic protocol insulin infusion and assess in AM for readiness to transition to subcutaneous insulin with Jardiance and Metformin.
Will follow
Discussed with nurse.
Diabetes History
- -
Type of Diabetes: 2 requiring insulin
Pre-Admission Diabetes Regimen
11/26/24 11/27/24
14:03 03:08
Creatinine 0.7 0.8
Lab Results
Hemoglobin A1c Cancelled 11/20/24 10:50
Insulin Pump Settings
IP Diabetes Regimen
11/26/24 11/26/24 11/26/24
14:03 14:06 14:58
Glucose 132 H
POC Glucose 137 H 220 H
11/26/24 11/26/24 11/26/24
15:59 16:59 17:56
Glucose
POC Glucose 183 H 159 H 155 H
11/26/24 11/26/24 11/26/24
19:04 21:05 23:26
Glucose
POC Glucose 123 H 98 143 H
11/27/24 11/27/24 11/27/24
01:13 03:08 03:24
Glucose 91
POC Glucose 111 H 94
11/27/24 11/27/24
05:02 06:53
Glucose
POC Glucose 120 H 109 H
Meal type: Dinner
Meal type: Dinner
Meal type: Lunch
Patient Education
[2024-11-27 10:02] LABS: Glucose - Point of Care 91 mg/dl (70-99)
[2024-11-27] MEDS: LIDOCAINE 4% PATCH 1 PATCH TOPICAL (10:02)
[2024-11-27] MEDS: ULTRAM 25 MG PO (10:03)
--- NOTE | 2024-11-27 11:02 | CM ---
Reviewed chart. Met with Ms. Kurtz to review discharge plans. She states she is feeling tired today. Prior to admission she resides alone in a two story home with one step to enter. She has a full flight steps to get to bedroom. She has a full
bathroom on each level. Prior to admission she was independent with ambulation and adls. She does not have any DME in the home. She has a prescription plan and uses [facility]. Will need to see her current functional level to see if she
will have any skilled care needs. Medical work-up in progress. The discharge plan is to return home with a home visit by the Transitional Care Nurse when medically stable.
[2024-11-27 12:00] LABS: Glucose - Point of Care 128 mg/dl (70-99)
--- NOTE | 2024-11-27 12:19 | PTCARENOTE ---
VS obtained, assessment stable. Patient assisted oob to chair, tolerated well. Denies urge to void.
[2024-11-27] MEDS: NSS IV (12:20)
[2024-11-27] MEDS: ProAmatine 5 MG PO (14:00)
[2024-11-27 14:08] LABS: Hepatitis C Antibody Negative (Negative)
[2024-11-27 14:11] LABS: Glucose - Point of Care 108 mg/dl (70-99)
--- NOTE | 2024-11-27 14:59 | W.PN.CD ---
Today's Communication / Plan
-
- Restart oral meds
- OK to start Metoprolol
- Keep on telemetry
- Conduction is improving.
Impression / Plan
-
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
STEMI and PCI to pRCA, with significant residual CAD presents for CABG
Outpatient Full Roll Inspector: Dr. Castro
Multi-vessel coronary artery disease/prior STEMI (10/2024) s/p CABG x 4 (CHAN to LAD, GSV to D, GSV to OM1, GSV to RPLB) & Atriclip with Dr. Espitia on 11/26/2024
-EKG sinus rhythm - Had LBBB, post op - today LBBB is improved and narrow QRS with IVCD - Improved conduction.
-Post-CELSO: LVEF 65%, no RWMA, normal RV, mild MR
-Restart Metoprolol tonight. Off the Levophed now.
-Last dose of Brilinta 11/21/2024 - now on Plavix / ASA
-Amiodarone 200 tid
-Lipitor 80
- Midodrine TID - 5 mg - home dose is 2.5 tid.
Anemia, chronic, type unknown
-S/P 2 units PRBC in OR
IDDM2 with hyperglycemia
-Chronic, poorly controlled.
-HbA1c 9.5% on 10-25-24; goal <7
Hyperlipidemia
-Chronic, stable.
-LDL 150 during prior hospitalization (10/25/2024)
-Continue atorvastatin 80 mg.
-Goal LDL <55.
Primary hypertension
-Chronic, stable.
-Follow post operatively
Orthostatic hypotension
-Chronic.
-Continue midodrine for orthostatic symptoms.
Physical Exam
Vital Signs/Labs
Vital Signs
Temp Pulse Resp BP Pulse Ox
98.2 F 85 15 104/44 100
11/27/24 12:00 11/27/24 13:00 11/27/24 12:00 11/27/24 12:48 11/27/24 12:00
11/26/24 11/27/24 11/28/24
06:59 06:59 06:59
Actual Weight 70.6 kg 75.5 kg
11/27/24 03:08
11/27/24 03:08
PT 18.7 Sec (11.4-14.6) H 11/26/24 14:03
INR 1.53 11/26/24 14:03
APTT 30.5 Sec (23.4-35.0) 11/26/24 14:03
Magnesium 2.7 mg/dl (1.6-2.3) H 11/27/24 03:08
Physical Exam
Constitutional: No acute distress and Comfortable
EENT: Anicteric and Moist mucous membranes
Cardiovascular: Rhythm & rate is regular, Pedal edema is absent and Systolic murmur present
Respiratory: Respiratory effort normal and Lungs clear to auscul.
GI: Soft and Normal bowel sounds
Neuro/Psych: Alert, Oriented and AO x 3
Data Reviewed
-
Date of Service: November 27, 2024
Medical Decision Making: Reviewed Test Results, Test Interpretation and Review of Case with other Provider
EKG: Tracing Personally Visualized and interpreted
X-Ray/CT/US/MRI/NUC/PET: Image Personally Visualized and interpreted
Labs: Labs Reviewed by me
Old Records: Reviewed
Critical Care Time (in minutes): 32
[2024-11-27 16:40] LABS: Glucose - Point of Care 93 mg/dl (70-99)
--- NOTE | 2024-11-27 16:54 | PTCARENOTE ---
Assumed care of patient at 1300. Pt remains awake, alert, and oriented. Pt with complaints of pain, PRN Toradol administered for relief. Pt SR with BBB HR 70's. BP 97/45 MAP 59, pt continues to receive scheduled Midodrine. Pulse oximetry 96% on room
air. Mediastinal chest tubes x2 and pleural chest tubes x2 in place, no sign of air leak or crepitus, drainage serosanguinous,
--- NOTE | 2024-11-27 17:06 | PTCARENOTE ---
Assumed care of patient at 1300. Pt remains awake, alert, and oriented. Pt with complaints of pain, PRN Toradol administered for relief. Pt SR with BBB HR 70's. BP 97/45 MAP 59, pt continues to receive scheduled Midodrine. Pulse oximetry 96% on room
air. Mediastinal chest tubes x2 and left/right pleural chest tubes in place, no sign of air leak or crepitus, drainage serosanguineous. Pt with complaints of nausea, relived by Reglan. Pt has bowel movement this afternoon. Pt voided on bedside
commode. Midsternal incision post-surgical dressing in place. Right leg incision RANI with surgical adhesive. Right IJ Cordis in place with KVO. Pt remains on Insulin gtt per Glycemic protocol. Pt tolerated being OOB in chair for short time.
[2024-11-27 18:18] LABS: Glucose - Point of Care 120 mg/dl (70-99)
[2024-11-27] MEDS: ZOFRAN 4 MG IV (18:19)
[2024-11-27] MEDS: ProAmatine PO ×2 (19:58→20:37)
[2024-11-27] MEDS: SENOKOT-S PO (20:00)
--- NOTE | 2024-11-27 20:00 | PTCARENOTE ---
Report received from HERBERT Keller. Walking rounds done. Pt remains drowsy, arouses easily to voice. Focuses on speaker. C/O feeling tired. Speech clear. No facial asymmetry. Oriented to person, place, intermittently to purpose. Does not know date. No
drift x 4. Follows simple commands. Equal strength x 4. Visual field confrontation testing done with no deficits. Follows finger L to R for gaze assessment. Able to identify touch on each side of body. Able to take sips of water and pills w/o
coughing. PA made aware. Pt on room air. Sats 94-95%. BBS present. Decreased B bases. CDB encouraged. Audible heart tones. + pericardial rub. Normotensive. See VS flowsheet. Midodrine not given at 1800 due to nausea. Discussed with PA. For pulse and
wound assessments, see flowsheets. Belly soft, obese, round. Normoactive bs x 4. Had BM today. Pt voided today at 1 pm. Denies urge to void. No bladder distention on palpation. PA made aware. Will bladder scan pt if continued lack of urine. Glycemic
protocol followed. Insulin gtt per protocol. Ongoing plan of care.
[ End ]
[2024-11-27 20:10] LABS: Glucose - Point of Care 108 mg/dl (70-99)
[2024-11-27] MEDS: CALCIUM GLUCONATE 130 MG IV (21:59)
[2024-11-27 22:07] LABS: Glucose - Point of Care 97 mg/dl (70-99)
--- NOTE | 2024-11-27 23:00 | PTCARENOTE ---
Pt bladder scanned for 218 mls urine. PA made aware. Melissaalta held HS per order PA. Other schedule meds given. Able to successfully swallow pills with water without signs of aspiration. CHG bath given. Face washed. Mouth care done. No change in
neuro assessment. Remains drowsy. PA at bedside to assess pt.
[2024-11-27] MEDS: CYMBALTA DELAYED RELEASE PO (23:12)
[2024-11-27] MEDS: TYLENOL PO (23:36)
[2024-11-28] VITALS (39 sets, daily range): BP systolic 76–179; BP diastolic 49–85; PULSE 82; O2SAT 98; BMI 27.6; BMI 28.2
[2024-11-28 00:17] LABS: Glucose - Point of Care 113 mg/dl (70-99)
--- NOTE | 2024-11-28 01:00 | PTCARENOTE ---
Repeat bladder scan results are 282 mls. PA made aware. Will rescan pt with am labs. Neuro assessment unchanged.
[2024-11-28 02:18] LABS: Glucose - Point of Care 99 mg/dl (70-99)
--- NOTE | 2024-11-28 03:43 | W.PN.CT ---
Today's Communication / Plan
-
Plan:
-No major issues overnight. Hemodynamically and neurologically intact
-Was requiring Levophed and Cardene immediately postop, weaned off overnight, remains on insulin gtt per protocol
-Will keep insulin gtt until tomorrow since she's a diabetic, will consult Diabetes education/management, A1C 9.5
-Monitor chest tube drainage: 2meds 95/210, R/L pleurals 95/210
-Cont. current meds (ASA, Plavix, Lipitor, Amiodarone, BB if bp permits)
-H/H 7.8/23.2, down from 9.3/26.8. Has hx of orthostasis, c/o feeling lethargic, will benefit from 1-2u PRBCs. Has received only 500 mL LR postop
-Mg 2.6, will place mag oxide on hold
-Monitor cr 1.5, unable to fully empty bladder, 250 u/o in 24hrs. Bladder scan prn. Perhaps increase BP and perfusion of kidneys after transfusion will help
-Tele phase today when off Insulin gtt
-Encourage use of IS
-Wean off of O2 as tolerated
-OOB into chair
-Ambulate
Assessment / Plan
-
Assessment:
-S/P Median sternotomy/CABG x 4 (CHAN to LAD, GSV to D, GSV to OM1, GSV to RPLB)Endoscopic harvest/prep of RLE GSV/ELAA (35mm AtriClip), by Dr. Espitia, 11/26/24, pod#2
-Multivessel coronary artery disease
-Hx inferior wall ST-elevation myocardial S/p PCI with LITTLE to prox. RCA, 10/24/24
-LVEF 65-70% postop per intraop CELSO
-Mild central MR
-Trace TR
-T2DM (hgb A1C 9.5)
-HTN
-Hyperlipidemia
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
-Anxiety/Depression
-Orthostasis/Vertigo
-S/P ROHAN-BSO, 2013
-S/p Breast lumpectomy, 1979 (benign)
-S/P Tonsillectomy
-Acute postop blood loss/Anemia (transfused 2u PRBCs)
-Acute postop thrombocytopenia (stable without active bleed)
-Acute postop atelectasis
-Acute postop MIRTHA
-Acute postop hypervolemia with subsequent hypervolemia
Discussed patient care with: Cardiology, Nursing, Respiratory Therapy, Pharmacy and Care Team
Subjective
Procedure
S/P Median sternotomy/CABG x 4 (CHAN to LAD, GSV to D, GSV to OM1, GSV to RPLB)Endoscopic harvest/prep of RLE GSV/ELAA (35mm AtriClip), by Dr. Espitia, 11/26/24
-
Date of Service: November 28, 2024
Pt c/o feeling lethargic, alert and oriented x 2, not oriented to time
Objective Data
-
PT 18.7 Sec (11.4-14.6) H 11/26/24 14:03
INR 1.53 11/26/24 14:03
APTT 30.5 Sec (23.4-35.0) 11/26/24 14:03
Vital Signs
Vital Signs
Temp Pulse Resp BP Pulse Ox
98.5 F 73 15 91/49 100
11/28/24 00:20 11/28/24 02:00 11/28/24 02:00 11/28/24 02:00 11/28/24 02:00
CT Intake/Output/Weight
11/27/24 11/27/24 11/28/24
06:59 18:59 06:59
Intake Total 528.2 / 1088.2 499.7 / 723.0 223.3 / 723.0
Output Total 870 / 1750 295 / 375 80 / 375
Balance -341.8 / -661.8 204.7 / 348.0 143.3 / 348.0
SaO2: 100 (2L)
Physical Exam
-
General: Awake, Oriented and AOx3
Cardiovascular: Regular rate & rhythm, No Murmurs, No Rub and No Gallop
Respiratory: Decreased Breath Sounds (at bases, otherwise feels well)
Sternum: Stable
Incision: Clean, Dry, Intact and Dressing Intact
Extremities: Other (+trace edema)
Data Reviewed
-
Lab Results: Results Reviewed
Medications: Active Meds Reviewed
Chest X-Ray: Report Reviewed and Image Reviewed
ECG: Report Reviewed and Image Reviewed
[2024-11-28 04:20] LABS: Lactic Acid 0.9 mmol/L (0.7-2.0)
[2024-11-28 04:23] LABS: Glucose - Point of Care 69 mg/dl (70-99)
[2024-11-28] MEDS: DEXTROSE 50% SYRINGE 12.5 GRAMS IV (04:26)
[2024-11-28 04:45] LABS: Glucose - Point of Care 137 mg/dl (70-99)
--- NOTE | 2024-11-28 05:00 | PTCARENOTE ---
Pt bladder scanned at 0300 for 300 mls. Assisted to bedpan. Voided 125 mls. Repeat bladder scan 173 mls. Accucheck at 0421 was 69. Insulin gtt of. D50 25 mls given IV. Repeat glucose in 15 min was 137. Insulin gtt resumed at 1.5 units/hr per
protocol. Will recheck glucose in 1 hour.
Labs drawn and sent. PA aware of all labs. No change in neuro assessment. Ongoing plan of care.
[2024-11-28 05:09] LABS: Hematocrit 23.2 % (37.0-47.0); Hemoglobin 7.8 g/dL (12.0-16.0); Mean Corp Hgb Conc. 33.6 g/dL (33.0-37.0); Mean Corpuscular Hgb 29.3 pg (27.0-31.0); Mean Corpuscular Volume 87.2 fL (81.0-99.0); Mean Platelet Volume 11.3 fL (7.4-10.4); Platelet Count 112 10^3/uL (130-400); Red Blood Cell Count 2.66 10^6/uL (4.20-5.40); Red Cell Dist. Width 14.6 % (11.5-14.5); White Blood Cell Count 13.5 10^3/uL (4.8-10.8)
[2024-11-28 05:31] LABS: Blood Urea Nitrogen 34 mg/dl (7-17); Calcium 9.3 mg/dl (8.4-10.2); Carbon Dioxide 23 mmol/L (22-30); Chloride 111 mmol/L (98-107); Estimated Creatinine Clearance 37 ml/min; Glucose 121 mg/dl (70-99); Magnesium 2.6 mg/dl (1.6-2.3); Potassium 4.2 mmol/L (3.5-5.1); Sodium 142 mmol/L (135-145); eGFR 37.96
[2024-11-28 05:52] LABS: Glucose - Point of Care 114 mg/dl (70-99)
[2024-11-28] MEDS: TYLENOL 1000 MG PO ×3 (05:56→22:37)
[2024-11-28] MEDS: REGLAN 10 MG IV ×2 (06:18→18:18)
[2024-11-28 06:56] LABS: Glucose - Point of Care 103 mg/dl (70-99)
--- NOTE | 2024-11-28 07:10 | PTCARENOTE ---
Reglan 10 mg IV x 1 for nausea. 1 unit PRBC started with 2 RNs per protocol. Pt repositioned in bed. Dr. Espitia in this am. Report to HERBERT Hanson.
--- NOTE | 2024-11-28 07:51 | PN.DE.MGMTRT ---
Insulin Management
- -
11/28/2024 Diabetes Management Consult Follow up
Patient admitted 11/26 for OR for CABG x 4. PMH diabetes, HTN, mini stroke, STEMI, hysterectomy. Prior to admission was taking lantus 12 units @ hs, Humalog 6 units AC, Jardiance 10 mg Pm, metformin 500 mg BID. A1C from 10/25 9.5%, cr today .8,
eGFR > 60.
POD 2 patient is awake alert and oriented able to discuss diabetes care. Has Lucille 3 for glucose monitor. Cr 1.5, eGFR 37.96.
Will continue glycemic protocol insulin infusion until HS tonight, then transition to subcutaneous insulin 12 units lantus @ HS. 2 hours after lantus administered stop insulin infusion. 11/29 will resume 6 units novolog AC with Jardiance
and Metformin if cr acceptable.
Will follow
Discussed with nurse.
Diabetes History
- -
Type of Diabetes: 2 requiring insulin
Pre-Admission Diabetes Regimen
11/28/24 11/28/24
03:47 04:54
Creatinine Cancelled 1.5 H
Lab Results
Hemoglobin A1c Cancelled 11/20/24 10:50
Insulin Pump Settings
IP Diabetes Regimen
11/27/24 11/27/24 11/27/24
10:01 11:58 14:07
Glucose
POC Glucose 91 128 H 108 H
11/27/24 11/27/24 11/27/24
16:38 18:17 20:08
Glucose
POC Glucose 93 120 H 108 H
11/27/24 11/28/24 11/28/24
22:06 00:16 02:16
Glucose
POC Glucose 97 113 H 99
11/28/24 11/28/24 11/28/24
03:47 04:21 04:44
Glucose Cancelled
POC Glucose 69 L 137 H
06/11/28/24 11/28/24
04:54 05:51 06:54
Glucose 121 H
POC Glucose 114 H 103 H
Meal type: Dinner
Amount consumed: 0
Patient Education
[2024-11-28 07:53] LABS: Glucose - Point of Care 103 mg/dl (70-99)
--- NOTE | 2024-11-28 08:10 | W.PN.INTV ---
Today's Communication / Plan
Recommendations
Up OOB as tolerated
Continue insulin drip per protocol with goal BG 110�140
Pain control
Encourage incentive spirometer
Wean down supplemental O2 while keeping SpO2 >90-94%
Cardiac rehab consult
Continue CVICU level of care; once weaned off insulin drip and downgraded to CVICU�telemetry status, then we will sign off at that time.
Assessment
-
Assessment: 69-year-old female former light tobacco smoker (quit >45 years ago with 2.5-pack-year history) with a past medical history of multivessel CAD with history of inferior wall STEMI s/p PCI with LITTLE to pRCA (10/24/2024), hyperlipidemia,
hypertension, orthostatic hypotension on midodrine, depression, chronic HFrEF and history of uterine tumor s/p radical hysterectomy (2013) who presents for elective CABG. Patient known to cardiothoracic surgery service with last visit on 11/13/[address] Espitia. On 10/24/2024, patient underwent a left heart catheterization showing multivessel CAD involving the LAD, OM1, RCA, and posterolateral branch. Because patient had presented with a STEMI of the inferior wall at that time, she
underwent PCI of a 90% proximal RCA lesion with LITTLE placed. Given her multivessel disease, she was recommended to obtain surgical revascularization which the patient agreed to. On 11/26/2024, patient underwent CABG x 4 with left atrial appendage
exclusion with a 35mm AtriClip. Patient tolerated the procedure well with no complications, and was transferred to the CVICU. Hand Tapper service consulted for additional management/recommendations
Chronic conditions RESPIRATORY CARE ASSISTANT: Multivessel CAD, DM type II, history of inferior wall STEMI s/p PCI with LITTLE, hyperlipidemia, history of uterine tumor s/p radical hysterectomy, orthostatic hypotension on midodrine, depression, chronic HFpEF, hypertension
Impression:
#Multivessel CAD with recent inferior wall STEMI s/p PCI/LITTLE to proximal RCA (10/24/2024) now s/p CABG x 4 with left atrial appendage exclusion with 35mm AtriClip (POD #2)
#Acute anemia due to above
#Acute thrombocytopenia due to above
#Hypocalcemia
#DM type II c/b hyperglycemia
#Chronic HFpEF
#Hx of HTN/HLD
#Orthostatic hypotension on midodrine
Plan:
Patient successfully extubated on 11/26/2024, and is currently breathing comfortably on room air and saturating 97-98%; was on 2 L/min nasal cannula on 11/27
Maintain SpO2 >90-94%
prn nebulized bronchodilators - not currently bronchospastic
Encourage incentive spirometer q1hr while awake
Pressors/antihypertensive/inotropes/diuretics will be provided as needed
Maintain MAP>65
Replete electrolytes with K>4, Mg>2
Continue aspirin + Plavix
Continue high intensity statin
PO amiodarone
Monitor chest tube output (mediastinal chest tubes x 2 + bilateral pleural chest tubes)
Monitor hemoglobin
Monitor platelet count and coags
Transfuse blood products as needed to maintain Hb>7g/dL, plt>50k (given post-operative status)
CT surgery managing chest tubes
Monitor blood sugar to maintain euglycemia with goal BG 110-140; A1C: 9.5 from 10/25/2024
Insulin drip per protocol
Aspiration precautions
DVT prophylaxis
Early nutrition
Early mobilization
Continue CVICU level of care; once weaned off insulin drip and downgraded to CVICU�telemetry status, then we will sign off at that time. Once we sign off, please call back with any questions or concerns.
Critical care statement: A total of 42 minutes of critical care time was provided for this patient today. This includes management of ventilator, spontaneous breathing trial, arterial blood gases, pressors, of unstable vital signs, evaluation of the
patient at bedside, reviewing the patient's pertinent medical records including radiographs, microbiology, laboratory evaluations, and discussion with primary team and critical care nursing.
Subjective Dataa
Subjective Data
Date of Service:
Date of Service: November 28, 2024
Chief Complaint: Hand Tapper Follow Up
Subjective:
Patient seen today at bedside. She feels much more awake today. Currently on room air breathing comfortably, saturating 97-98%. Heart rate 79, BP 146/69. She is currently on insulin drip at 1.2 units/h. Patient's daughter is at bedside.
Review of Systems
General: Other (Negative unless mentioned above)
Objective Data
Data Reviewed
Vital Signs / I&O / Oxygen:
Vital Signs
Temp Pulse Resp BP Pulse Ox
98.5 F 77 18 106/57 100
11/28/24 07:53 11/28/24 08:44 11/28/24 07:53 11/28/24 08:44 11/28/24 07:53
Intake and Output
11/27/24 11/28/24 11/29/24
06:59 06:59 06:59
Intake Total 1088.2 / 1088.2 1066.5 / 1066.5 260.7 / 260.7
Output Total 1750 / 1750 540 / 540 0 / 0
Balance -661.8 / -661.8 526.5 / 526.5 260.7 / 260.7
SaO2 [CPAP] 100
SaO2 [SIMV] 100
SaO2 100
Nasal Cannula flow liters per 2
minute
Physical Exam
General: Respiratory Distress (negative), Comfortable, Chills (negative) and Sweats (negative)
HEENT: Normocephalic and Anicteric
Cardiovascular: S1-S2, Rub (positive) and Peripheral Edema (negative)
Respiratory: Clear, Wheeze (negative), Crackles (negative), Rhonchi (negative), Non-Labored Respirations, Stridor (negative) and Chest Tube (mediastinal chest tubes x 2 + bilateral pleural chest tubes)
GI: Soft, Non Distended, Non Tender and Normal Bowel Sounds
Neurology: Awake, Alert and Tremors (negative)
Skin: Warm, Dry, Cyanosis (negative) and Jaundice (negative)
Labs/Micro/Reports
Lab Data
11/28/24 04:54
11/28/24 04:54
Microbiology
11/26/24 06:50 Urine Urine Culture - Final
NO GROWTH
--- NOTE | 2024-11-28 08:40 | W.PN.CD ---
Today's Communication / Plan
-
cont ASA/plavix
trend tele
trend Cr
EKG
Impression / Plan
-
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
STEMI and PCI to pRCA, with significant residual CAD presents for CABG
Outpatient Undergraduate Intern: Dr. Castro
Multi-vessel coronary artery disease/prior STEMI (10/2024) s/p CABG x 4 (CHAN to LAD, GSV to D, GSV to OM1, GSV to RPLB) & Atriclip with Dr. Espitia on 11/26/2024
-EKG sinus rhythm - Had LBBB, post op - QRS duration is improving
-Post-CELSO: LVEF 65%, no RWMA, normal RV, mild MR
-ASA/Plavix
-metoprolol
-statin
Orthostatic hypotension
-cont home midodrine
MIRTHA
-trend Cr
IDDM2 with hyperglycemia
-Chronic, poorly controlled.
-HbA1c 9.5% on 10-25-24; goal <7
Hyperlipidemia
-Chronic, stable.
-LDL 150 during prior hospitalization (10/25/2024)
-Continue atorvastatin 80 mg.
-Goal LDL <55.
Primary hypertension
-Chronic, stable.
-Follow post operatively
Physical Exam
Vital Signs/Labs
Vital Signs
Temp Pulse Resp BP Pulse Ox
98.5 F 74 18 106/50 100
11/28/24 07:53 11/28/24 05:30 11/28/24 07:53 11/28/24 05:00 11/28/24 07:53
11/27/24 11/28/24 11/29/24
06:59 06:59 06:59
Actual Weight 75.5 kg 75.2 kg
11/28/24 04:54
11/28/24 04:54
PT 18.7 Sec (11.4-14.6) H 11/26/24 14:03
INR 1.53 11/26/24 14:03
APTT 30.5 Sec (23.4-35.0) 11/26/24 14:03
Magnesium 2.6 mg/dl (1.6-2.3) H 11/28/24 04:54
Physical Exam
Constitutional: No acute distress and Comfortable
EENT: Moist mucous membranes
Cardiovascular: Rhythm & rate is regular, Pedal edema is absent, JVD pressure is normal and Systolic murmur absent
Respiratory: Respiratory effort normal and Lungs clear to auscul.
Neuro/Psych: AO x 3
Data Reviewed
-
Date of Service: November 28, 2024
EKG: Other (Tele: SR 70s)
Labs: Labs Reviewed by me
[2024-11-28] MEDS: SENOKOT-S 1 TABLET PO (08:43)
[2024-11-28] MEDS: ProAmatine 5 MG PO ×3 (08:43→17:48)
[2024-11-28] MEDS: PROTONIX 40 MG PO (08:43)
[2024-11-28] MEDS: PLAVIX 75 MG PO (08:43)
[2024-11-28] MEDS: PACERONE 200 MG PO ×3 (08:44→22:36)
[2024-11-28] MEDS: LIDOCAINE 4% PATCH 1 PATCH TOPICAL (08:44)
[2024-11-28] MEDS: LOW STRENGTH ASPIRIN 81 MG PO (08:44)
[2024-11-28] MEDS: BACTROBAN 2% OINTMENT 1 APPLIC NASAL ×2 (08:45→20:13)
[2024-11-28 08:58] LABS: Glucose - Point of Care 111 mg/dl (70-99)
[2024-11-28] MEDS: LASIX 20 MG IV (10:21)
--- NOTE | 2024-11-28 10:41 | PTCARENOTE ---
Rec'd pt this shift awake and alert. Pt NSR on monitor. 1 unit PRBC infused and completed. AM meds given. Pt assisted OOB up in chair with 2 person assist, tolerated well. 20mg IV lasix given as ordered. Pt c/o feeling sleepy and dizzy at times with
on and off nausea. See worklist for VS/I and O and assessments.
[2024-11-28 10:49] LABS: Glucose - Point of Care 108 mg/dl (70-99)
[2024-11-28] MEDS: NOVOLIN R INSULIN INFUSION 100 IV (11:15)
[2024-11-28] MEDS: ZOFRAN 4 MG IV (11:30)
[2024-11-28 13:09] LABS: Glucose - Point of Care 112 mg/dl (70-99)
--- NOTE | 2024-11-28 13:18 | PTCARENOTE ---
Pt OOB up in chair for 2 hours today, tolerated well. Pt voided in bedside commode without difficulty. Pt denies pain, denies sob.
[2024-11-28] MEDS: NSS 500 IV (14:12)
[2024-11-28] MEDS: LASIX 40 MG IV (14:13)
[2024-11-28 16:30] LABS: Glucose - Point of Care 112 mg/dl (70-99)
--- NOTE | 2024-11-28 17:52 | PTCARENOTE ---
chest tube dsgs done.
[2024-11-28 18:30] LABS: Glucose - Point of Care 105 mg/dl (70-99)
--- NOTE | 2024-11-28 20:00 | PTCARENOTE ---
Assumed care of patient at 1900. Patient found resting in bed at time of assessment. Patient is Aox4, follows commands appropriately, moves all extremities. Patient reports drowsiness. Lung sounds are diminished, saO2 95% on RA, CTx4: 2xmeds, R/L
pleural draining red sanguineous. Heart sounds are audible. There is a rub present on auscultation. Patient has normal palpable pulses throughout. +2 edema present in bilateral hands. Patient SR with BBB on the monitor. Patient has active BS in all
four quadrants, reports BM yesterday, voids. There is a sternal incision with aquacell dressing small amount of old drainage present, ABD dressing over CT wounds CDI, dressing on RLE where GERI was placed is CDI, patient has R groin puncture approx
with surg adhesive WRAPPER CASHIER, RLE incision approx with surg adhesive WRAPPER CASHIER. Patient has R IJ cordis receiving KVO and R hand PIV receiving insulin gtt. Call ramírez within reach.
[2024-11-28] MEDS: SENOKOT-S PO (20:13)
[2024-11-28 20:27] LABS: Glucose - Point of Care 106 mg/dl (70-99)
[2024-11-28] MEDS: TOPROL XL 12.5 MG PO (21:35)
[2024-11-28] MEDS: CYMBALTA DELAYED RELEASE 30 MG PO (22:36)
[2024-11-28 22:37] LABS: Glucose - Point of Care 105 mg/dl (70-99)
[2024-11-28] MEDS: LIPITOR 80 MG PO (22:37)
[2024-11-28] MEDS: LANTUS 0.12 UNITS SC (22:37)
[2024-11-29] VITALS (14 sets, daily range): BP systolic 115–175; BP diastolic 61–80; PULSE 70; O2SAT 96; BMI 27.8
[2024-11-29 00:06] LABS: Glucose - Point of Care 91 mg/dl (70-99)
--- NOTE | 2024-11-29 00:59 | PTCARENOTE ---
Patient reassessed. Notably high BP SBP 160s-170s CT PA notified. Patient asymptomatic. 12.5 Toprol restarted. Insulin gtt dc'd at 0000 per orders. Remains SR with BBB on the monitor. Call ramírez within reach.
[2024-11-29] MEDS: REGLAN 10 MG IV ×2 (03:01→09:00)
--- NOTE | 2024-11-29 03:04 | W.PN.CT ---
Today's Communication / Plan
-
-pod #3
-no significant issues overnight
-CT outputs: 2 meds 25/35 and 2 pleur 50/180 in 05/29 hrs
-had nausea x1 overnight and twice yesterday - gets prn Reglan
-reports having BM 11/27
-sbp 160s-170s last night- restarted Toprol 12.5 bid (takes 50 at home), decreased Midodrine to 2.5 tid (same dose at home)
-s/p 1 pRBC on 11/28 for Hg 7.8. Hg today 9.6
-wt is up from 155 preop to 169 on 11/28. Appears volume overloaded (JVD, hand swelling). Got 20 iv Lasix am and 40 iv Lasix pm on 11/28 (UO 800)
-bladder scans for urinary retention
-follow Cr - 1.5 today (1.5 on 11/28, 0.8 on 11/27, 0.9 preop)
-current meds (ASA, Plavix, Lipitor, Toprol 12.5bid, Amio, Midodrine 2.5 tid, Protonix), Holding Mg d/t MIRTHA
-encourage IS, OOB
Assessment / Plan
-
Assessment:
-S/P Median sternotomy/CABG x 4 (CHAN to LAD, GSV to D, GSV to OM1, GSV to RPLB)Endoscopic harvest/prep of RLE GSV/ELAA (35mm AtriClip), by Dr. Espitia, 11/26/24, pod#3
-Multivessel coronary artery disease
-Hx inferior wall ST-elevation myocardial S/p PCI with ILTTLE to prox. RCA, 10/24/24
-LVEF 65-70% postop per intraop CELSO
-Mild central MR
-Trace TR
-T2DM (hgb A1C 9.5)
-HTN
-Hyperlipidemia
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
-Anxiety/Depression
-Orthostasis/Vertigo
-S/P ROHAN-BSO, 2013 for uterine tumor
-S/p Breast lumpectomy, 1978 (benign)
-S/P Tonsillectomy
-Hx orthostatic hypotension - on tid Midodrine at home
-Acute postop blood loss/Anemia (transfused 3u PRBCs)
-Acute postop thrombocytopenia (stable without active bleed)
-Acute postop atelectasis
-Acute postop MIRTHA
-Acute postop hypovolemia with subsequent hypervolemia
-Acute postop urinary retention
-Acute postop pericarditis/+rub
Discussed patient care with: Nursing and Care Team
Subjective
Procedure
S/P Median sternotomy/CABG x 4 (CHAN to LAD, GSV to D, GSV to OM1, GSV to RPLB)Endoscopic harvest/prep of RLE GSV/ELAA (35mm AtriClip), by Dr. Espitia, 11/26/24
-
Date of Service: November 29, 2024
Objective Data
-
PT 18.7 Sec (11.4-14.6) H 11/26/24 14:03
INR 1.53 11/26/24 14:03
APTT 30.5 Sec (23.4-35.0) 11/26/24 14:03
Vital Signs
Vital Signs
Temp Pulse Resp BP Pulse Ox
98.3 F 65 18 139/70 96
11/28/24 16:36 11/29/24 02:00 11/28/24 20:00 11/29/24 02:00 11/29/24 02:00
CT Intake/Output/Weight
11/28/24 11/28/24 11/29/24
06:59 18:59 06:59
Intake Total 566.8 / 1066.5 895.1 / 981.1 86 / 981.1
Output Total 245 / 540 990 / 1055 65 / 1055
Balance 321.8 / 526.5 -94.9 / -73.9 21 / -73.9
SaO2: 96
Physical Exam
-
General: Awake and AOx3
Cardiovascular: Regular rate & rhythm, No Murmurs, Rub and Other (+JVD)
Respiratory: Decreased Breath Sounds
Sternum: Stable
Incision: Clean, Dry and Intact
Extremities: Other (1+ hand edema b/l, trace leg edema b/l)
Abdomen: soft, nontender, nondistended, + bowel sounds
Data Reviewed
-
Lab Results: Results Reviewed
Medications: Active Meds Reviewed
Chest X-Ray: Report Reviewed and Image Reviewed
ECG: Report Reviewed and Image Reviewed
[2024-11-29 03:08] LABS: Glucose - Point of Care 97 mg/dl (70-99)
[2024-11-29 03:32] LABS: Hematocrit 28.3 % (37.0-47.0); Hemoglobin 9.6 g/dL (12.0-16.0); Mean Corp Hgb Conc. 33.9 g/dL (33.0-37.0); Mean Corpuscular Volume 85.5 fL (81.0-99.0); Mean Platelet Volume 11.5 fL (7.4-10.4); Platelet Count 109 10^3/uL (130-400); Red Blood Cell Count 3.31 10^6/uL (4.20-5.40); White Blood Cell Count 12.9 10^3/uL (4.8-10.8)
[2024-11-29 04:01] LABS: Blood Urea Nitrogen 40 mg/dl (7-17); Calcium 8.3 mg/dl (8.4-10.2); Carbon Dioxide 19 mmol/L (22-30); Chloride 111 mmol/L (98-107); Estimated Creatinine Clearance 37 ml/min; Glucose 93 mg/dl (70-99); Magnesium 2.3 mg/dl (1.6-2.3); Potassium 3.9 mmol/L (3.5-5.1); Sodium 138 mmol/L (135-145); eGFR 37.96
--- NOTE | 2024-11-29 04:20 | PTCARENOTE ---
Patient reassessed. VSS. Patient c/o nausea around 0300 given prn Reglan with some relief. AM labs obtained. AM hygiene care provided. Remains SR BBB on the monitor.
[2024-11-29] MEDS: TYLENOL PO ×2 (06:42→14:06)
--- NOTE | 2024-11-29 07:59 | PN.DE.MGMTRT ---
Insulin Management
- -
11/29/2024 Diabetes Management Consult Follow up
Patient admitted 11/26 for OR for CABG x 4. PMH diabetes, HTN, mini stroke, STEMI, hysterectomy. Prior to admission was taking lantus 12 units @ hs, Humalog 6 units AC, Jardiance 10 mg Pm, metformin 500 mg BID. A1C from 10/25 9.5%, cr today 1.5,
eGFR 37.96.
POD 3 patient is awake alert and oriented able to discuss diabetes care. Has Lucille 3 for glucose monitor. Cr 1.5, eGFR 37.96.
Transitioned from glycemic protocol insulin infusion @ HS 11/28. Received 12 units lantus @ HS, 2 hours after lantus administered insulin infusion stopped.
11/29 will resume 6 units novolog AC with low corrective. Will NOT resume SGLT2 or metformin due to MIRTHA.
Will follow
Discussed with nurse.
Diabetes History
- -
Type of Diabetes: 2 requiring insulin
Pre-Admission Diabetes Regimen
11/29/24
03:12
Creatinine 1.5 H
Lab Results
Hemoglobin A1c Cancelled 11/20/24 10:50
Insulin Pump Settings
IP Diabetes Regimen
11/28/24 11/28/24 11/28/24
08:56 10:48 13:07
Glucose
POC Glucose 111 H 108 H 112 H
11/28/24 11/28/24 11/28/24
16:27 18:28 20:25
Glucose
POC Glucose 112 H 105 H 106 H
11/28/24 11/29/24 11/29/24
22:35 00:05 03:07
Glucose
POC Glucose 105 H 91 97
11/29/24
03:12
Glucose 93
POC Glucose
Meal type: Lunch
Amount consumed: 100%
Patient Education
--- NOTE | 2024-11-29 08:00 | PTCARENOTE ---
Assumed care of patient from back end engineer RN. AAO x 3 sitting up in chair. Continues to complain of intermittent nausea. Not dizzy at present. SR w/ BBB on monitor. Room air 97%, ches tubes x 4 to - 20 cm suction. No air leak or crepitus noted.
Abdomen soft and non tender. Surgical sites c,d,i. General trace anasarca appreciated. Bilateral hands with plus 2 edema. Pulses palpable. Plan for day discussed.
[2024-11-29] MEDS: TOPROL XL 12.5 MG PO ×2 (08:20→20:28)
[2024-11-29] MEDS: PROTONIX 40 MG PO (08:20)
[2024-11-29] MEDS: ProAmatine 2.5 MG PO ×3 (08:21→18:04)
[2024-11-29] MEDS: LOW STRENGTH ASPIRIN 81 MG PO (08:21)
[2024-11-29] MEDS: PLAVIX 75 MG PO (08:21)
[2024-11-29] MEDS: PACERONE 200 MG PO ×3 (08:21→21:55)
[2024-11-29] MEDS: BACTROBAN 2% OINTMENT 1 APPLIC NASAL ×2 (08:21→20:29)
[2024-11-29] MEDS: SENOKOT-S PO (08:22)
[2024-11-29] MEDS: LIDOCAINE 4% PATCH TOPICAL (08:22)
[2024-11-29 08:26] LABS: Glucose - Point of Care 121 mg/dl (70-99)
[2024-11-29] MEDS: NOVOLOG FLEXPEN-LOW RESISTANCE SC ×2 (08:26→13:20)
--- NOTE | 2024-11-29 08:27 | W.PN.INTV ---
Today's Communication / Plan
Recommendations
Up OOB as tolerated
Goal BG 110�140
Pain control
Encourage incentive spirometer
Wean down supplemental O2 while keeping SpO2 >90-94%
Cardiac rehab consult
Pt weaned off insulin drip and downgraded to CVICU�telemetry status. No additional recommendations at this time. Endoscopy Registered Nurse/Pulmonary service will now sign off. Please reconsult if there are any additional questions/concerns, or if patient's
respiratory status deteriorates.
Assessment
-
Assessment: 69-year-old female former light tobacco smoker (quit >45 years ago with 2.5-pack-year history) with a past medical history of multivessel CAD with history of inferior wall STEMI s/p PCI with LITTLE to pRCA (10/24/2024), hyperlipidemia,
hypertension, orthostatic hypotension on midodrine, depression, chronic HFrEF and history of uterine tumor s/p radical hysterectomy (2013) who presents for elective CABG. Patient known to cardiothoracic surgery service with last visit on 11/13/[address] Espitia. On 10/24/2024, patient underwent a left heart catheterization showing multivessel CAD involving the LAD, OM1, RCA, and posterolateral branch. Because patient had presented with a STEMI of the inferior wall at that time, she
underwent PCI of a 90% proximal RCA lesion with LITTLE placed. Given her multivessel disease, she was recommended to obtain surgical revascularization which the patient agreed to. On 11/26/2024, patient underwent CABG x 4 with left atrial appendage
exclusion with a 35mm AtriClip. Patient tolerated the procedure well with no complications, and was transferred to the CVICU. Endoscopy Registered Nurse service consulted for additional management/recommendations
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
Impression:
#Multivessel CAD with recent inferior wall STEMI s/p PCI/LITTLE to proximal RCA (10/24/2024) now s/p CABG x 4 with left atrial appendage exclusion with 35mm AtriClip (POD #3)
#Acute anemia due to above
#Acute thrombocytopenia due to above
#Hypocalcemia
#DM type II c/b hyperglycemia
#Chronic HFpEF
#Hx of HTN/HLD
#Orthostatic hypotension on midodrine
Plan:
Patient successfully extubated on 11/26/2024, and is currently breathing comfortably on room air and saturating 97-98%; was on 2 L/min nasal cannula on 11/27
Maintain SpO2 >90-94%
prn nebulized bronchodilators - not currently bronchospastic
Encourage incentive spirometer q1hr while awake
Pressors/antihypertensive/inotropes/diuretics will be provided as needed
Maintain MAP>65
Replete electrolytes with K>4, Mg>2
Continue aspirin + Plavix
Continue high intensity statin
PO amiodarone
Monitor chest tube output (all 4 chest tubes to be removed this AM - mediastinal chest tubes x 2 + bilateral pleural chest tubes)
Monitor hemoglobin
Monitor platelet count and coags
Transfuse blood products as needed to maintain Hb>7g/dL, plt>50k (given post-operative status)
CT surgery managing chest tubes
Monitor blood sugar to maintain euglycemia with goal BG 110-140; A1C: 9.5 from 10/25/2024
Insulin drip now weaned off; recommend ISS to maintain BG at goal as above
Aspiration precautions
DVT prophylaxis
Early nutrition
Early mobilization
Pt weaned off insulin drip and downgraded to CVICU�telemetry status. No additional recommendations at this time. Endoscopy Registered Nurse/Pulmonary service will now sign off. Thank you for allowing us to be involved in the care of this patient. Please
reconsult if there are any additional questions/concerns, or if patient's respiratory status deteriorates.
Total time spent today was 58 minutes for this encounter. Time includes reviewing laboratory test/imaging results, reviewing pertinent medical records, obtaining and reviewing medical history, performing an appropriate exam, ordering medications,
tests and procedures. Time also includes documentation of this encounter, coordinating patient care and communicating with other healthcare professionals. Total time does not include separately billed tests performed on this date of service.
Subjective Dataa
Subjective Data
Date of Service:
Date of Service: November 29, 2024
Chief Complaint: Endoscopy Registered Nurse Follow Up
Subjective:
Patient was seen and evaluated today at bedside. On room air breathing comfortably, saturating 96%. Heart rate 72, BP 150/78. Denies chest pain, GIL, nausea, fevers or chills
Review of Systems
General: Other (Negative unless mentioned above)
Objective Data
Data Reviewed
Vital Signs / I&O / Oxygen:
Vital Signs
Temp Pulse Resp BP Pulse Ox
97.8 F 71 16 132/73 97
11/29/24 08:00 11/29/24 08:45 11/29/24 08:00 11/29/24 08:11 11/29/24 08:52
Intake and Output
11/28/24 11/29/24 11/30/24
06:59 06:59 06:59
Intake Total 1066.5 / 1066.5 1001.1 / 1001.1 240 / 240
Output Total 540 / 540 1365 / 1365
Balance 526.5 / 526.5 -363.9 / -363.9 240 / 240
SaO2 [CPAP] 100
SaO2 [SIMV] 100
SaO2 97
Nasal Cannula flow liters per 2
minute
Physical Exam
General: Respiratory Distress (negative), Comfortable, Chills (negative) and Sweats (negative)
HEENT: Normocephalic and Anicteric
Cardiovascular: S1-S2, Rub (positive) and Peripheral Edema (negative)
Respiratory: Wheeze (negative), Crackles (Bilateral), Rhonchi (negative), Non-Labored Respirations and Stridor (negative)
GI: Soft, Non Distended, Non Tender and Normal Bowel Sounds
Neurology: Awake, Alert and Tremors (negative)
Skin: Warm, Dry, Cyanosis (negative) and Jaundice (negative)
Labs/Micro/Reports
Lab Data
11/29/24 03:12
11/29/24 03:12
Microbiology
11/26/24 06:50 Urine Urine Culture - Final
NO GROWTH
[2024-11-29] MEDS: LASIX 40 MG IV (09:05)
--- NOTE | 2024-11-29 10:31 | W.PN.CD ---
Today's Communication / Plan
-
continue ASA/Plavix
trend tele
Impression / Plan
-
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
STEMI and PCI to pRCA, with significant residual CAD presents for CABG
Outpatient Patient Centered Care Specialist: Dr. Castro
Multi-vessel coronary artery disease/prior STEMI (10/2024) s/p CABG x 4 (CHAN to LAD, GSV to D, GSV to OM1, GSV to RPLB) & Atriclip with Dr. Espitia on 11/26/2024
-EKG sinus rhythm - Had LBBB, post op - QRS duration is improving
-Post-CELSO: LVEF 65%, no RWMA, normal RV, mild MR
-continue ASA/Plavix
-continue metoprolol
-continue statin
Orthostatic hypotension
-cont home midodrine
MIRTHA
-trend Cr: plateau at 1.5
IDDM2 with hyperglycemia
-Chronic, poorly controlled.
-HbA1c 9.5% on 10-25-24; goal <7
Hyperlipidemia
-Chronic, stable.
-LDL 150 during prior hospitalization (10/25/2024) with recent statin initiation;to repeat after 3 months on statin
-Continue atorvastatin 80 mg.
-Goal LDL <55.
Primary hypertension
-Chronic, stable.
Physical Exam
Vital Signs/Labs
Vital Signs
Temp Pulse Resp BP Pulse Ox
97.8 F 71 16 132/73 97
11/29/24 08:00 11/29/24 08:45 11/29/24 08:00 11/29/24 08:11 11/29/24 08:52
11/28/24 11/29/24 11/30/24
06:59 06:59 06:59
Actual Weight 75.2 kg 75.9 kg 75.7 kg
11/29/24 03:12
11/29/24 03:12
PT 18.7 Sec (11.4-14.6) H 11/26/24 14:03
INR 1.53 11/26/24 14:03
APTT 30.5 Sec (23.4-35.0) 11/26/24 14:03
Magnesium 2.3 mg/dl (1.6-2.3) 11/29/24 03:12
Physical Exam
Constitutional: No acute distress and Comfortable
EENT: Moist mucous membranes
Cardiovascular: Rhythm & rate is regular, Pedal edema is absent, JVD pressure is normal and Systolic murmur absent
Respiratory: Respiratory effort normal and Lungs clear to auscul.
Neuro/Psych: AO x 3
Data Reviewed
-
Date of Service: November 29, 2024
EKG: Other (Tele: SR 70s)
Labs: Labs Reviewed by me
[2024-11-29] MEDS: NOVOLOG FLEXPEN SC (10:58)
--- NOTE | 2024-11-29 10:59 | PTCARENOTE ---
Chest tubes x 4 removed as per order. Pt tolerated without issue. Able to void post IV lasix. Dizziness at times . VSS
[2024-11-29 13:05] LABS: Glucose - Point of Care 144 mg/dl (70-99)
[2024-11-29] MEDS: NOVOLOG FLEXPEN 6 UNITS SC ×2 (13:54→18:03)
[2024-11-29] MEDS: NSS IV (13:54)
--- NOTE | 2024-11-29 14:44 | PTCARENOTE ---
Ambulated in hallway with RN. Gait steady w/o dizziness. Able to tolerate approx 70 feet. Will continue to encourage. increased ambulation.
[2024-11-29 18:02] LABS: Glucose - Point of Care 198 mg/dl (70-99)
[2024-11-29] MEDS: NOVOLOG FLEXPEN-LOW RESISTANCE 1 UNITS SC (18:04)
--- NOTE | 2024-11-29 18:13 | PTCARENOTE ---
Ambulating in room to and from bathroom , states she feels a bit better this evening. VSS. Assessment otherwise unchanged from prior.
--- NOTE | 2024-11-29 19:26 | PTCARENOTE ---
vitals captured for previous rn.
--- NOTE | 2024-11-29 20:24 | PTCARENOTE ---
received pt from previous rn. Pt AAOx4, NSR per tele monitor Hr 70s. +rub, +1 B/L hand edema, pox 97% on RA lungs clear diminished. +bs, pt passing flatus, pt voiding appropriately in bathroom. all surgical incisions intact, CT dressing c.d.i. RIJ
cordis infusing KVO. PIVx1 intact. plan of care discussed and questions encouraged, call ramírez within reach.
[2024-11-29] MEDS: SENOKOT-S 1 TABLET PO (20:28)
[2024-11-29] MEDS: TYLENOL 1000 MG PO (20:28)
[2024-11-29] MEDS: LIPITOR 80 MG PO (21:55)
[2024-11-29] MEDS: CYMBALTA DELAYED RELEASE 30 MG PO (21:55)
[2024-11-29] MEDS: LANTUS 0.12 UNITS SC (21:58)
[2024-11-29 21:59] LABS: Glucose - Point of Care 155 mg/dl (70-99)
[2024-11-30] VITALS (12 sets, daily range): BP systolic 98–160; BP diastolic 50–77; PULSE 66–68; O2SAT 97–99; BMI 27.4
--- NOTE | 2024-11-30 00:19 | PTCARENOTE ---
pt resting comfortably in bed, VSS, NSR per tele monitor, assessment remains unchanged.
--- NOTE | 2024-11-30 03:40 | PTCARENOTE ---
VSS, pt ambulating to bathroom, NSR per tele monitor, labs obtained.
[2024-11-30 03:54] LABS: Hemoglobin 9.8 g/dL (12.0-16.0); Mean Corpuscular Hgb 29.4 pg (27.0-31.0); Mean Corpuscular Volume 84.1 fL (81.0-99.0); Mean Platelet Volume 10.8 fL (7.4-10.4); Platelet Count 145 10^3/uL (130-400); Red Blood Cell Count 3.33 10^6/uL (4.20-5.40); Red Cell Dist. Width 14.5 % (11.5-14.5); White Blood Cell Count 11.5 10^3/uL (4.8-10.8)
[2024-11-30 04:14] LABS: Blood Urea Nitrogen 39 mg/dl (7-17); Calcium 8.2 mg/dl (8.4-10.2); Carbon Dioxide 23 mmol/L (22-30); Chloride 109 mmol/L (98-107); Estimated Creatinine Clearance 50 ml/min; Glucose 128 mg/dl (70-99); Magnesium 2.4 mg/dl (1.6-2.3); Potassium 3.7 mmol/L (3.5-5.1); Sodium 138 mmol/L (135-145); eGFR 55.07
[2024-11-30] MEDS: KCL 40 MEQ PO (06:32)
[2024-11-30] MEDS: TYLENOL PO ×2 (06:32→11:09)
[2024-11-30 07:52] LABS: Glucose - Point of Care 158 mg/dl (70-99)
--- NOTE | 2024-11-30 07:54 | PN.DE.MGMTRT ---
Insulin Management
- -
11/30/2024: Diabetes Management Follow up
Patient admitted 11/26 for OR for CABG x 4. PMH diabetes, HTN, mini stroke, STEMI, hysterectomy. Prior to admission was taking lantus 12 units @ hs, Humalog 6 units AC, Jardiance 10 mg Pm, metformin 500 mg BID. A1C from 10/25 9.5%, cr today 1.5,
eGFR 37.96.
POD # 4 patient is awake alert and oriented, sitting up in chair, offers no complaints, able to discuss diabetes care.
Has Lucille 3 for glucose monitor. Cr 1.1, eGFR>55.07
Transitioned from glycemic protocol insulin infusion @ HS on 11/28.
11/29 Received 12 units Lantus @ HS, fasting glucose 158 POC, Premeal range 121 to 198.
Will make no changes to current regimen: NovoLog 6 units AC, Lantus 12 units @ HS with low corrective.
Will NOT resume SGLT2 or Metformin due to MIRTHA, will resume when Cr is at baseline.
Discussed with nurse. will cont to follow.
Diabetes History
- -
Type of Diabetes: 2 requiring insulin
Pre-Admission Diabetes Regimen
11/30/24
03:32
Creatinine 1.1 H
Lab Results
Hemoglobin A1c Cancelled 11/20/24 10:50
Insulin Pump Settings
IP Diabetes Regimen
11/29/24 11/29/24 11/29/24
08:25 13:03 18:00
Glucose
POC Glucose 121 H 144 H 198 H
11/29/24 11/30/24 11/30/24
21:58 03:32 07:47
Glucose 128 H
POC Glucose 155 H 158 H
Meal type: Breakfast
Amount consumed: 25%
Patient Education
--- NOTE | 2024-11-30 08:00 | W.PN.CT ---
Today's Communication / Plan
-
-pod #4
-no issues overnight
-wt is up from 155 preop to 164 today. Diuresed well with 40 iv Lasix on 11/29 (UO 600/2400 in 12/24 hrs)- continue
-K 3.7 - gave 40 po KCL
-Cr is improving - 1.1 today (peak Cr 1.5 and 0.9 preop)
-follow 2v-CXR
-current meds (ASA, Plavix, Lipitor, Toprol 12.5bid, Amio, Midodrine 2.5 tid, Protonix), Holding Mg d/t MIRTHA
-encourage IS, OOB
Assessment / Plan
-
Assessment:
-S/P Median sternotomy/CABG x 4 (CHAN to LAD, GSV to D, GSV to OM1, GSV to RPLB)Endoscopic harvest/prep of RLE GSV/ELAA (35mm AtriClip), by Dr. Espitia, 11/26/24, pod#4
-Multivessel coronary artery disease
-Hx inferior wall ST-elevation myocardial S/p PCI with LITTLE to prox. RCA, 10/24/24
-LVEF 65-70% postop per intraop CELSO
-Mild central MR
-Trace TR
-T2DM (hgb A1C 9.5)
-HTN
-Hyperlipidemia
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
-Anxiety/Depression
-Orthostasis/Vertigo
-S/P ROHAN-BSO, 2013 for uterine tumor
-S/p Breast lumpectomy, 1978 (benign)
-S/P Tonsillectomy
-Hx orthostatic hypotension - on tid Midodrine at home
-Acute postop blood loss/Anemia (transfused 3u PRBCs)
-Acute postop thrombocytopenia (stable without active bleed)
-Acute postop atelectasis
-Acute postop MIRTHA- improving
-Acute postop hypovolemia with subsequent hypervolemia
-Acute postop urinary retention
-Acute postop pericarditis/+rub
Discussed patient care with: Nursing and Care Team
Subjective
Procedure
S/P Median sternotomy/CABG x 4 (CHAN to LAD, GSV to D, GSV to OM1, GSV to RPLB)Endoscopic harvest/prep of RLE GSV/ELAA (35mm AtriClip), by Dr. Espitia, 11/26/24
-
Date of Service: November 30, 2024
Objective Data
-
Lab Results
11/30/24 03:32
11/30/24 03:32
PT 18.7 Sec (11.4-14.6) H 11/26/24 14:03
INR 1.53 11/26/24 14:03
APTT 30.5 Sec (23.4-35.0) 11/26/24 14:03
Vital Signs
Vital Signs
Temp Pulse Resp BP Pulse Ox
98.6 F 65 18 139/74 97
11/30/24 03:39 11/30/24 05:15 11/30/24 03:39 11/30/24 03:19 11/30/24 03:39
CT Intake/Output/Weight
11/29/24 11/30/24 11/30/24
18:59 06:59 18:59
Intake Total 530 / 530
Output Total 1800 / 2400 600 / 2400
Balance -1270 / -1870 -600 / -1870
SaO2: 97
Physical Exam
-
General: Awake and AOx3
Cardiovascular: Regular rate & rhythm, No Murmurs, Rub and Other (+JVD)
Respiratory: Decreased Breath Sounds
Sternum: Stable
Incision: Clean, Dry and Intact
Abdomen: soft, nontender, nondistended, + bowel sounds
Extremities: Other (1+ hand edema b/l, trace leg edema b/l)
Data Reviewed
-
Lab Results: Results Reviewed
Medications: Active Meds Reviewed
Chest X-Ray: Report Reviewed and Image Reviewed
ECG: Report Reviewed and Image Reviewed
[2024-11-30] MEDS: NOVOLOG FLEXPEN-LOW RESISTANCE 1 UNITS SC ×2 (08:15→17:58)
[2024-11-30] MEDS: NOVOLOG FLEXPEN 6 UNITS SC ×3 (08:15→17:58)
[2024-11-30] MEDS: BACTROBAN 2% OINTMENT 1 APPLIC NASAL (08:15)
[2024-11-30] MEDS: TOPROL XL 12.5 MG PO ×2 (08:16→20:23)
[2024-11-30] MEDS: PLAVIX 75 MG PO (08:16)
[2024-11-30] MEDS: LASIX 40 MG IV ×2 (08:16→18:04)
[2024-11-30] MEDS: LOW STRENGTH ASPIRIN 81 MG PO (08:16)
[2024-11-30] MEDS: PROTONIX 40 MG PO (08:16)
[2024-11-30] MEDS: PACERONE 200 MG PO ×3 (08:17→20:23)
[2024-11-30] MEDS: ProAmatine 2.5 MG PO ×3 (08:17→17:59)
[2024-11-30] MEDS: KCL 20 MEQ PO ×2 (08:17→18:02)
[2024-11-30] MEDS: SENOKOT-S PO ×2 (08:18→20:31)
--- NOTE | 2024-11-30 08:32 | PTCARENOTE ---
Patient received from supervisor files resting oob in chair, awaiting breakfast, states pain controlled at this time. NSR w/BBB via cm, SaO2 @ 97% on RA. RIJ Cordis w/kvo infusing. All procedural sites stable. Patient updated to plan of care for the day,
in agreement. See work list for full assessment and interventions performed.
--- NOTE | 2024-11-30 09:22 | PTCARENOTE ---
Cordis d/c'd as ordered, patient tolerated well. Report given to HERBERT Whitley, in ICU. Patient and all belongings transported to 2254.
--- NOTE | 2024-11-30 09:38 | W.PN.CD ---
Today's Communication / Plan
-
continue ASA/Plavix
continue metoprolol
continue statin
Impression / Plan
-
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
STEMI and PCI to pRCA, with significant residual CAD presents for CABG
Outpatient Filter Worker: Dr. Castro
Multi-vessel coronary artery disease/prior STEMI (10/2024) s/p CABG x 4 (CHAN to LAD, GSV to D, GSV to OM1, GSV to RPLB) & Atriclip with Dr. Espitia on 11/26/2024
-EKG sinus rhythm - Had LBBB, post op - QRS duration is improving
-Post-CELSO: LVEF 65%, no RWMA, normal RV, mild MR
-continue ASA/Plavix
-continue metoprolol
-continue statin
Orthostatic hypotension
-on midodrine at home; now held for elevated BP
-trend BP
MIRTHA
-trend Cr: plateau at 1.5, and now improved at 1.1
IDDM2 with hyperglycemia
-Chronic, poorly controlled.
-HbA1c 9.5% on 10-25-24; goal <7
Hyperlipidemia
-Chronic, stable.
-LDL 150 during prior hospitalization (10/25/2024) with recent statin initiation;to repeat after 3 months on statin
-Continue atorvastatin 80 mg.
-Goal LDL <55.
Primary hypertension
-monitor as she recovers from OR
Physical Exam
Vital Signs/Labs
Vital Signs
Temp Pulse Resp BP Pulse Ox
98.1 F 71 16 160/77 97
11/30/24 08:00 11/30/24 09:16 11/30/24 08:00 11/30/24 08:17 11/30/24 08:30
11/29/24 11/30/24 12/01/24
06:59 06:59 06:59
Actual Weight 75.9 kg 74.8 kg
11/30/24 03:32
11/30/24 03:32
PT 18.7 Sec (11.4-14.6) H 11/26/24 14:03
INR 1.53 11/26/24 14:03
APTT 30.5 Sec (23.4-35.0) 11/26/24 14:03
Magnesium 2.4 mg/dl (1.6-2.3) H 11/30/24 03:32
Physical Exam
Constitutional: No acute distress and Comfortable
EENT: Moist mucous membranes
Cardiovascular: Rhythm & rate is regular, Pedal edema is absent, JVD pressure is normal and Systolic murmur absent
Respiratory: Respiratory effort normal and Lungs clear to auscul.
Neuro/Psych: AO x 3
Data Reviewed
-
Date of Service: November 30, 2024
EKG: Other (SR 70s)
Labs: Labs Reviewed by me
[2024-11-30 13:03] LABS: Glucose - Point of Care 144 mg/dl (70-99)
[2024-11-30] MEDS: NOVOLOG FLEXPEN-LOW RESISTANCE SC (13:20)
[2024-11-30] MEDS: NSS IV (13:20)
[2024-11-30] MEDS: TYLENOL 1000 MG PO ×2 (13:42→20:24)
--- NOTE | 2024-11-30 15:47 | CM ---
Chart reviewed. Patient is independent of ADLS, lives alone in a 2 STH, 1 JACKIE, 0 DME. Patient's bedroom is on the 2nd floor. Patient has a full bathroom on the 1st floor. Patient's daughter is available to check in on patient, but unable to stay
with the patient because she has small children at home. Patient will need to do the stairs before discharge. Plan is for the patient to return home with CT Transitional RN. CM to follow
--- NOTE | 2024-11-30 17:45 | PTCARENOTE ---
Rec'd Pt at 0915, as transfer from CV[facility], A,A+Ox3, no c/o pain presently. Sitting OOB in chair. Pt assisted to BR with very minimal assist of 1, phani well. Sternal aquacell dsg, with small amt old drainage previously marked, intact and dry. R inner
knee incision w/ surgical glue dry and intact, R groin incision HUM[employer]ITAL MA[employer]GER with surgical glue D+I. R lower leg suture D+I. Dsg to old chest tube sites D+I.
[2024-11-30 17:56] LABS: Glucose - Point of Care 163 mg/dl (70-99)
[2024-11-30] MEDS: LIPITOR 80 MG PO (20:23)
[2024-11-30] MEDS: CYMBALTA DELAYED RELEASE 30 MG PO (20:24)
[2024-11-30 22:29] LABS: Glucose - Point of Care 149 mg/dl (70-99)
[2024-11-30] MEDS: LANTUS 0.12 UNITS SC (22:30)
--- NOTE | 2024-12-01 02:40 | PTCARENOTE ---
Assumed care of the pt @ 1900. Pt is AAOx3 SR with BBB on the monitor VSS ambulates to bathroom standby assist. sternal precautions maintained. Pt needed reinforcement on technique for IS 1250 fair/good effort. Call ramírez within reach.
[2024-12-01 04:33] VITALS: BP 121/67
[2024-12-01 04:41] VITALS: BMI 27.0
[2024-12-01] MEDS: TYLENOL PO (07:22)
[2024-12-01 07:54] VITALS: BP 119/63
[2024-12-01 07:57] LABS: Glucose - Point of Care 140 mg/dl (70-99)
--- NOTE | 2024-12-01 08:05 | PTCARENOTE ---
Assumed care of pt from prev nsg shift; pt AAOX3 w/no CP or SOB; Pt does report some pain at her sternal inc site & is requesting PRN Tylenol after she eats breakfast this AM. Pt did not receive her 0600 scheduled dose of PO Tylenol bec she was
sleeping for prev nurse. Pt's VSS w/HR in the 60's & BP 119/63 this AM. Pt SB/SR w/BBB on telemetry monitoring. Pt w/call ramírez within reach & plan of care ongoing.
[2024-12-01] MEDS: NOVOLOG FLEXPEN-LOW RESISTANCE SC (08:22)
[2024-12-01 08:34] LABS: Hematocrit 27.2 % (37.0-47.0); Hemoglobin 9.3 g/dL (12.0-16.0); Mean Corp Hgb Conc. 34.2 g/dL (33.0-37.0); Mean Corpuscular Volume 84.7 fL (81.0-99.0); Mean Platelet Volume 10.4 fL (7.4-10.4); Platelet Count 170 10^3/uL (130-400); Red Blood Cell Count 3.21 10^6/uL (4.20-5.40); Red Cell Dist. Width 14.2 % (11.5-14.5); White Blood Cell Count 8.3 10^3/uL (4.8-10.8)
[2024-12-01 08:41] LABS: ALT (SGPT) 13 U/L (0-35); AST (SGOT) 24 U/L (14-36); Alkaline Phosphatase 83 U/L (38-126); Blood Urea Nitrogen 29 mg/dl (7-17); Calcium 7.7 mg/dl (8.4-10.2); Carbon Dioxide 25 mmol/L (22-30); Chloride 111 mmol/L (98-107); Estimated Creatinine Clearance 45 ml/min; Glucose 131 mg/dl (70-99); Potassium 3.4 mmol/L (3.5-5.1); Sodium 140 mmol/L (135-145); Total Protein 5.4 g/dl (6.3-8.2); eGFR 55.07
--- NOTE | 2024-12-01 09:10 | W.PN.CT ---
Addendum entered and electronically signed by Joseluis Espitia MD 12/01/24 09:18:
I saw and examined the patient.
The PA's note was reviewed and I agree with the note.
Comment:
No events.�
D/C home today
Original Note:
Today's Communication / Plan
-
-pod #5
-no issues overnight
-wt is up from 155 preop to 164 11/30. Diuresed with 40 iv bid Lasix on 11/30 (UO 1000+)- continue
-gave 40 KCL for K 3.4 this am
-Cr is improving - 1.1 today (1.1 on 11/30, peak Cr 1.5 and 0.9 preop)
-stable 2v-CXR on 11/30
-current meds (ASA, Plavix, Lipitor, Toprol 12.5 bid, Amio, Midodrine 2.5 tid for chronic orthostasis, Protonix), Holding Mg d/t MIRTHA
-encourage IS, OOB
Assessment / Plan
-
Assessment:
-S/P Median sternotomy/CABG x 4 (CHAN to LAD, GSV to D, GSV to OM1, GSV to RPLB)Endoscopic harvest/prep of RLE GSV/ELAA (35mm AtriClip), by Dr. Espitia, 11/26/24, pod#5
-Multivessel coronary artery disease
-Hx inferior wall ST-elevation myocardial S/p PCI with LITTLE to prox. RCA, 10/24/24
-LVEF 65-70% postop per intraop CELSO
-Mild central MR
-Trace TR
-T2DM (hgb A1C 9.5)
-HTN
-Hyperlipidemia
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
-Anxiety/Depression
-Orthostasis/Vertigo
-S/P ROHAN-BSO, 2013 for uterine tumor
-S/p Breast lumpectomy, 1978 (benign)
-S/P Tonsillectomy
-Hx orthostatic hypotension - on tid Midodrine at home
-Acute postop blood loss/Anemia (transfused 3u PRBCs)
-Acute postop thrombocytopenia (stable without active bleed)
-Acute postop atelectasis
-Acute postop MIRTHA- improving
-Acute postop hypovolemia with subsequent hypervolemia
-Acute postop urinary retention
-Acute postop pericarditis/+rub
Discussed patient care with: Nursing and Care Team
Subjective
Procedure
S/P Median sternotomy/CABG x 4 (CHAN to LAD, GSV to D, GSV to OM1, GSV to RPLB)Endoscopic harvest/prep of RLE GSV/ELAA (35mm AtriClip), by Dr. Espitia, 11/26/24
-
Date of Service: December 01, 2024
Objective Data
-
Lab Results
11/30/24 03:32
11/30/24 03:32
PT 18.7 Sec (11.4-14.6) H 11/26/24 14:03
INR 1.53 11/26/24 14:03
APTT 30.5 Sec (23.4-35.0) 11/26/24 14:03
Vital Signs
Vital Signs
Temp Pulse Resp BP Pulse Ox
98.1 F 68 16 107/53 96
11/30/24 22:39 11/30/24 22:30 11/30/24 22:39 11/30/24 22:29 11/30/24 22:39
CT Intake/Output/Weight
11/30/24 11/30/24 12/01/24
06:59 18:59 06:59
Intake Total 270 / 270
Output Total 600 / 2400 1000 / 1000
Balance -600 / -1870 -730 / -730
SaO2: 96
Physical Exam
-
General: Awake and AOx3
Cardiovascular: Regular rate & rhythm, No Murmurs, Rub and Other (+JVD)
Respiratory: Decreased Breath Sounds
Sternum: Stable
Incision: Clean, Dry and Intact
Abdomen: soft, nontender, nondistended, + bowel sounds
Extremities: trace leg edema b/l
Data Reviewed
-
Lab Results: Results Reviewed
Medications: Active Meds Reviewed
Chest X-Ray: Report Reviewed and Image Reviewed
ECG: Report Reviewed and Image Reviewed
[2024-12-01] MEDS: NOVOLOG FLEXPEN 6 UNITS SC ×2 (09:40→13:19)
[2024-12-01] MEDS: LOW STRENGTH ASPIRIN 81 MG PO (09:41)
[2024-12-01] MEDS: SENOKOT-S 1 TABLET PO (09:41)
[2024-12-01] MEDS: TYLENOL 650 MG PO (09:41)
[2024-12-01] MEDS: KCL 40 MEQ PO (09:42)
[2024-12-01] MEDS: TOPROL XL 12.5 MG PO (09:42)
[2024-12-01] MEDS: PLAVIX 75 MG PO (09:42)
[2024-12-01] MEDS: ProAmatine 2.5 MG PO ×2 (09:42→13:21)
[2024-12-01] MEDS: PACERONE 200 MG PO ×2 (09:42→15:52)
[2024-12-01] MEDS: PROTONIX 40 MG PO (09:42)
--- NOTE | 2024-12-01 11:07 | W.DCSUMMARY ---
Discharge Summary
Discharge Data
Date of Admission: 11/26/24
Date of Discharge: 12/01/24
Total time spent discharging patient (in min): 47
-
Pending Results: No
Hospital Course
Patient was admitted electively and underwent coronary artery bypass grafting x [address] Espitia on 11/26/2024. Please refer to separately dictated operative report for complete details. Postoperatively patient progressed well. She was extubated
per usual protocol around 2200. She did require some additional fluid resuscitation postoperatively. She continued to progress on the pathway into postop day 1.
Postoperative day #1: Invasive monitoring lines and Hernandez catheter were removed. Right leg GERI drain was removed. Beta-anum was held for hypotension. Patient was started on her home midodrine.
Postoperative day #2: Patient received 1 unit of packed red blood cells. Mild acute kidney injury was noted with a creatinine increased to 1.5. Chest tubes remained today. Beta-anum continued to be held for low blood pressures.
Postoperative day #3: Chest tubes were removed. Creatinine remained stable 1.5. Gentle diuresis was ongoing. Beta-anum continued to be held. Midodrine was maintained.
Postoperative day #4: Patient was again gently diuresed. We attempted to stop her midodrine however she became orthostatic and was subsequently restarted. She was started on a low-dose beta-anum which she tolerated.
Postoperative day #5: Cleared for discharge today to home. Will continue to uptitrate beta-anum as tolerated in the outpatient setting. Discharge instructions were reviewed at length with the patient and her questions were answered to her
satisfaction. We will discharge her back home on her home Brilinta as opposed to Plavix. We will continue aspirin as well for dual antiplatelet therapy.
Discharge Plan
-
Patient Disposition: Home (Routine Discharge)
Discharge Diagnosis/Procedures: -Status post Median sternotomy/Coronary artery bypass grafting x 4 (Left internal mammary artery to left anterior descending, greater saphenous vein to diagonal, greater saphenous vein to obtuse marginal 1, greater
saphenous vein to right posterolateral branch)Endoscopic harvest/prep of Right lower extremity greater saphenous vein, exclusion of left atrial appendage (35mm AtriClip), by Dr. Espitia, 11/26/24
-Multivessel coronary artery disease
-History inferior wall ST-elevation myocardial Status post percutaneous coronary intervention with Drug-eluting stent to proximal right coronary artery, 10/24/24
-Left ventricular ejection fraction 65%
-Mild central Mitral regurgitation
-Trace Tricuspid regurgitation
-Uncontrolled type 2 diabetes mellitus (hemoglobin A1C 9.5)
-Hypertension
-Hyperlipidemia
-Head trauma with chronic Right frontal lobe lesion/no neuro deficits (fell off horse 2021)
-Anxiety/Depression
-Orthostasis/Vertigo
-Status post total abdominal hysterectomy�bilateral salpingo-oophorectomy, 2013 for uterine tumor
-Status post Breast lumpectomy, 1978 (benign)
-Status post Tonsillectomy
-History orthostatic hypotension - on tid Midodrine at home
-Acute Postoperative blood loss/Anemia (transfused 3 units packed red blood cells)
-Acute Postoperative thrombocytopenia (stable without active bleed)
-Acute Postoperative atelectasis
-Acute Postoperative MIRTHA- improving
-Acute Postoperative hypovolemia with subsequent hypervolemia
-Acute Postoperative urinary retention
-Acute Postoperative pericarditis/+rub
Diet: Low Cholesterol and Low Sodium
Activity: No strenuous activity
Driving Restrictions: Not until seen by your Dr
Bathing Restrictions: OK to Shower
Specialty Instructions: Weigh Daily- Call MD for wt gain/loss 3 lbs overnight/5 lbs in 1 week
Activity Restrictions/Additional Instructions:
ACTIVITY:
-No strenuous activity: no heavy lifting, pushing, pulling anything over 15 pounds for one month
-continue to use stairs as tolerated
DRIVING RESTRICTIONS:
-No driving for one month or until approved by your surgeon
WOUND CARE:
-Shower daily. Use soap & water.
-No lotions, creams or powders on incision area.
DIET:
-continue a low fat/low cholesterol diet.
-IF you are diabetic, continue carb controlled diet.
CARDIAC REHAB:
-Please make appointment to start in 5-6 weeks with your local hospital program. (See Cardiac Rehabilitation Discharge Booklet).
SPECIALTY INSTRUCTIONS:
-Weigh yourself daily. Call your physician for any weight gain/loss of 3 lbs overnight or 5 lbs in one week.
-REPORT any clicking noise or uneven appearance of your sternum to your surgeon immediately.
-If you smoke, you are instructed to quit. The [place] smoking hotline phone number is [phone]
Referrals:
CT Transitional Care Nurse [Outside] - in one to two days
Referral Note:
The Cardiothoracic Transitional Care Nurse will call you to set up a visit in 1-2 days.
[facility] [Outside] - 01/08/25 1:00 pm
Referral Note: Cardiac Rehab Orientation appointment is on 01/08/25 at 1:00 pm
The Cardiac Rehab gym is located on the first floor of the [facility].
Loni Bartlett CRNP [Specified Professional Personl, Cardiology] - 01/09/25 10:00 am
Fadumo Reyez MD, Resident [Family Provider, General]
Joseluis Espitia MD [Active, Cardiac Surgery] - 01/01/25 1:30 pm
Prescriptions:
New
acetaminophen 325 mg Tablet
650 mg PO Q4HPRN PRN (Reason: mild pain,headache,temp >101F ) Qty: 60 0RF
metoprolol succinate 25 mg Tablet Extended Release 24 Hr
12.5 mg PO BID Qty: 60 2RF
tramadol 50 mg Tablet
25 mg PO Q6HPRN PRN (Reason: mild pain) 7 Days Qty: 28 0RF
Continued
midodrine 2.5 mg Tablet
2.5 mg PO TID
duloxetine [Cymbalta] 30 mg Capsule,Delayed Release(Dr/Ec)
30 mg PO HS
insulin lispro [Humalog KwikPen Insulin] 100 unit/mL insulin pen
6 unit SC AC
Rx Instructions:
W/MEALS;
atorvastatin 80 mg tablet
80 mg PO HS
aspirin 81 mg tablet,chewable
81 mg PO DAILY
ticagrelor [Brilinta] 90 mg tablet
90 mg PO BID
nitroglycerin 0.4 mg Tablet, Sublingual
0.4 mg sublingual [id number] PRN (Reason: Angina (chest/shoulder pain)) Qty: 30 0RF
insulin glargine 100 unit/mL (3 mL) Insulin Pen
12 unit SC HS
Discontinued
Jardiance 10 mg tablet
10 mg PO QPM
metformin 500 mg tablet
500 mg PO BID@0800,1700
metoprolol succinate 50 mg tablet extended release 24 hr
50 mg PO DAILY
Discharge Orders:
Discharge Patient (As Directed); Ordered 12/01/24
Ordered By: Sanchez Smith
Care Plan Goals
Care Plan Goals:
Problem: Readiness for enhanced knowledge related to diagnosis and treatment plan
Goal: Understand your diagnosis and treatment plan needs, including medications if applicable.
Instructions: Know your diagnosis, underlying causes and treatment plan options, including medications if applicable. Consult with your health care team to learn about your diagnosis and treatment plan, including medications if applicable.
Discharge Date and Time
Print Language: DJIBOUTIAN
--- NOTE | 2024-12-01 11:56 | W.PN.CD ---
Today's Communication / Plan
-
discharge planning on current med regimen
Impression / Plan
-
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
STEMI and PCI to pRCA, with significant residual CAD presents for CABG
Outpatient School Nurse: Dr. Castro
Multi-vessel coronary artery disease/prior STEMI (10/2024) s/p CABG x 4 (CHAN to LAD, GSV to D, GSV to OM1, GSV to RPLB) & Atriclip with Dr. Espitia on 11/26/2024
-EKG sinus rhythm - Had LBBB, post op - QRS duration is improving
-Post-CELSO: LVEF 65%, no RWMA, normal RV, mild MR
-continue ASA/Plavix
-continue metoprolol
-continue statin
Orthostatic hypotension
-on midodrine at home: 2.5mg bid
-trend BP
MIRTHA
-trend Cr: plateau at 1.5, and now improved at 1.1
IDDM2 with hyperglycemia
-Chronic, poorly controlled.
-HbA1c 9.5% on 10-25-24; goal <7
Hyperlipidemia
-Chronic, stable.
-LDL 150 during prior hospitalization (10/25/2024) with recent statin initiation;to repeat after 3 months on statin
-Continue atorvastatin 80 mg.
-Goal LDL <55.
Primary hypertension
-monitor as she recovers from OR
Physical Exam
Vital Signs/Labs
Vital Signs
Temp Pulse Resp BP Pulse Ox
97.9 F 62 18 119/63 93
12/01/24 07:56 12/01/24 07:54 12/01/24 07:56 12/01/24 07:54 12/01/24 07:56
11/30/24 12/01/24 12/02/24
06:59 06:59 06:59
Actual Weight 74.8 kg 73.5 kg
12/01/24 08:17
12/01/24 08:17
PT 18.7 Sec (11.4-14.6) H 11/26/24 14:03
INR 1.53 11/26/24 14:03
APTT 30.5 Sec (23.4-35.0) 11/26/24 14:03
Magnesium 2.4 mg/dl (1.6-2.3) H 11/30/24 03:32
Physical Exam
Constitutional: No acute distress and Comfortable
EENT: Moist mucous membranes
Cardiovascular: Rhythm & rate is regular, Pedal edema is absent, JVD pressure is normal and Systolic murmur absent
Respiratory: Respiratory effort normal and Lungs clear to auscul.
Neuro/Psych: AO x 3
Data Reviewed
-
Date of Service: December 01, 2024
EKG: Other (Tele: SR 60s)
Labs: Labs Reviewed by me
[2024-12-01 12:07] VITALS: BP 137/72
[2024-12-01 12:09] VITALS: BP 137/72
[2024-12-01 12:56] LABS: Glucose - Point of Care 244 mg/dl (70-99)
[2024-12-01] MEDS: NSS IV (13:02)
[2024-12-01] MEDS: NOVOLOG FLEXPEN-LOW RESISTANCE 2 UNITS SC (13:19)
[2024-12-01] MEDS: TYLENOL 1000 MG PO (13:20)
[2024-12-01 15:16] VITALS: BP 99/64
[2024-12-01] MEDS: LIDOCAINE 4% PATCH 1 PATCH TOPICAL (15:52)
--- NOTE | 2024-12-01 17:00 | PTCARENOTE ---
Removed pt's sternal dressing & assisted pt w/1st post-op shower. Pt reported 'feeling winded' afterwards, but did very well. Assisted pt w/dressing & removed pt's IV line & D/C telemetry monitoring. Needed CT Surgery PA to change pt's pharmacy to
[facility] bec pt's preferred pharmacy isn't open on the weekends. Pt taken out via WC & driven hm by friend.
== END 2024-12-01 17:05 | disposition home or self-care (01) | DRG 236 ==
LOC: IVU 04:56
PROVIDERS: Clinical Nurse Specialist Acute Care; Physician Assistant Medical; ADMITTING PHYSICIAN Thoracic Surgery (Cardiothoracic Vascular Surgery); CONSULT PHYSICIAN Internal Medicine Critical Care Medicine
PROC: 5A1221Z Performance of Cardiac Output, Continuous (ICD-10-PCS; 2024-11-26)
PROC: 02100Z9 Bypass Coronary Artery, One Artery from Left Internal Mammary, Open Approach (ICD-10-PCS; 2024-11-26)
PROC: 30233N1 Transfusion of Nonautologous Red Blood Cells into Peripheral Vein, Percutaneous Approach (ICD-10-PCS; 2024-11-26)
PROC: B24BZZ4 Ultrasonography of Heart with Aorta, Transesophageal (ICD-10-PCS; 2024-11-26)
PROC: 02L70CK Occlusion of Left Atrial Appendage with Extraluminal Device, Open Approach (ICD-10-PCS; 2024-11-26)
PROC: 0212093 Bypass Coronary Artery, Three Arteries from Coronary Artery with Autologous Venous Tissue, Open Approach (ICD-10-PCS; 2024-11-26)
PROC: 06BP4ZZ Excision of Right Saphenous Vein, Percutaneous Endoscopic Approach (ICD-10-PCS; 2024-11-26)
DX: I25.119 Atherosclerotic heart disease of native coronary artery with unspecified angina pectoris (principal); D62 Acute posthemorrhagic anemia; J98.11 Atelectasis; N17.9 Acute kidney failure, unspecified; I31.9 Disease of pericardium, unspecified; I50.32 Chronic diastolic (congestive) heart failure; I11.0 Hypertensive heart disease with heart failure; E11.65 Type 2 diabetes mellitus with hyperglycemia; I95.1 Orthostatic hypotension; F32.A Depression, unspecified; E78.00 Pure hypercholesterolemia, unspecified; I34.0 Nonrheumatic mitral (valve) insufficiency; D69.59 Other secondary thrombocytopenia; E83.51 Hypocalcemia; I44.7 Left bundle-branch block, unspecified; R33.9 Retention of urine, unspecified; E86.1 Hypovolemia; Z87.891 Personal history of nicotine dependence; Z90.710 Acquired absence of both cervix and uterus; Z95.5 Presence of coronary angioplasty implant and graft; I25.2 Old myocardial infarction; Z80.52 Family history of malignant neoplasm of bladder; Z82.49 Family history of ischemic heart disease and other diseases of the circulatory system; Z82.0 Family history of epilepsy and other diseases of the nervous system; Z82.3 Family history of stroke; Z80.8 Family history of malignant neoplasm of other organs or systems; Z79.82 Long term (current) use of aspirin; Z79.84 Long term (current) use of oral hypoglycemic drugs; Z79.02 Long term (current) use of antithrombotics/antiplatelets; Z79.4 Long term (current) use of insulin; Z87.820 Personal history of traumatic brain injury
CPT/HCPCS: 36415; 71045; 71046; 80048; 80053; 81003; 81015; 82248; 82330; 82565; 82805; 82947; 82962; 83605; 83735; 84132; 84302; 84520; 85014; 85018; 85025; 85027; 85049; 85610; 85730; 86803; 86850; 86900; 86901; 86920; 87070; 87086; 93005; 93312; 93320; 93325; 94002; 94010; P9016; P9045; P9047

== ENCOUNTER → 2025-01-01 13:55 | Outpatient (REF) | payer MEDICARE, SELFPAY | LOC: RAD 13:55 | PROVIDERS: ATTENDING PHYSICIAN Thoracic Surgery (Cardiothoracic Vascular Surgery) | DX: Z95.1 Presence of aortocoronary bypass graft (principal); R06.2 Wheezing | CPT/HCPCS: 71046 ==

== ENCOUNTER → 2025-01-08 13:27 | Outpatient (REF) | payer MEDICARE, SELFPAY | LOC: RAD 13:27 | PROVIDERS: ATTENDING PHYSICIAN Thoracic Surgery (Cardiothoracic Vascular Surgery) | DX: Z95.1 Presence of aortocoronary bypass graft (principal); R06.02 Shortness of breath | CPT/HCPCS: 71046 ==

== ENCOUNTER → 2025-02-08 15:45 | Outpatient (REF) | payer MEDICARE, SELFPAY | LOC: REG 15:45 | PROVIDERS: ATTENDING PHYSICIAN Thoracic Surgery (Cardiothoracic Vascular Surgery) | DX: J90 Pleural effusion, not elsewhere classified (principal); Z95.1 Presence of aortocoronary bypass graft | CPT/HCPCS: 71046 ==

== ENCOUNTER → 2025-05-16 10:03 | Outpatient (REF) | payer MEDICARE, SELFPAY ==
[2025-05-16 11:44] LABS: Hematocrit 35.8 % (37.0-47.0); Hemoglobin 11.6 g/dL (12.0-16.0); Mean Corp Hgb Conc. 32.4 g/dL (33.0-37.0); Mean Corpuscular Volume 87.5 fL (81.0-99.0); Nucleated Red Blood Cells % 0 %; Platelet Count 156 10^3/uL (130-400); Red Cell Dist. Width 13.2 % (11.5-14.5)
[2025-05-16 12:16] LABS: Glycohemoglobin (HgbA1c) 12.6 % (4.0-5.9)
[2025-05-16 12:21] LABS: ALT (SGPT) 123 U/L (0-35); AST (SGOT) 55 U/L (14-36); Blood Urea Nitrogen 37 mg/dl (7-17); Calcium 9.5 mg/dl (8.4-10.2); Carbon Dioxide 23 mmol/L (22-30); Chloride 99 mmol/L (98-107); Glucose 386 mg/dl (70-99); HDL Cholesterol 59 mg/dl; LDL Cholesterol, Calculated 55 mg/dl; Potassium 4.7 mmol/L (3.5-5.1); Sodium 133 mmol/L (135-145); Very Low Density Lipoprotein 20 mg/dl (0-30); eGFR 55.07
== END ==
LOC: REG 10:03
PROVIDERS: ATTENDING PHYSICIAN Nurse Practitioner; FAMILY PHYSICIAN Internal Medicine; OTHER PHYSICIAN Student in an Organized Health Care Education/Training Program
DX: E11.9 Type 2 diabetes mellitus without complications (principal); E11.65 Type 2 diabetes mellitus with hyperglycemia; M62.81 Muscle weakness (generalized); I95.1 Orthostatic hypotension; I10 Essential (primary) hypertension; E78.5 Hyperlipidemia, unspecified
CPT/HCPCS: 36415; 80048; 80061; 83036; 84450; 84460; 85025